=== PATIENT | male | born 1945 | race Caucasian/White ===

== ENCOUNTER 2018-06-06 11:19 | Inpatient (IN) | payer MEDICARE ==
[~2018-06-06] VITALS: Ht 167.6 cm; Wt 123.6 kg
[2018-06-06] MEDS ORDERED: ASPIRIN 81 MG CHEW TAB PO ONE (11:30)
[2018-06-06] MEDS ORDERED: FUROSEMIDE INJ 10 MG/ML 4 ML VIAL IV ONE (11:30)
[2018-06-06] MEDS ORDERED: NITROGLYCERIN 2% OINT 1 GM PKT TOP ONE (11:30)
[2018-06-06] MEDS ORDERED: FAMOTIDINE 20 MG/2 ML VIAL IV ONE (11:30)
[2018-06-06] MEDS ORDERED: ACETAMINOPHEN 325 MG TAB PO ONE (11:30)
[2018-06-06 12:10] LABS: BASOPHILS # (AUTO) 0.1 (0.0-0.1); BASOPHILS % 0.8 % (0.0-1.0); EOSINOPHILS # (AUTO) 0.3 (0.0-0.4); EOSINOPHILS % 4.4 % (0.0-6.0); HEMATOCRIT 24.6 % (38.2-49.6); HEMOGLOBIN 7.5 g/dL (14.0-18.0); LYMPHOCYTES # (AUTO) 1.1 (1.0-3.2); LYMPHOCYTES % 18.6 % (18.0-39.1); MEAN CORPUSCULAR HGB CONC 30.5 g/dL (31-35); MEAN CORPUSCULAR VOLUME 78.6 fL (81-99); MONOCYTES % 16.2 % (4.4-11.3); NEUTROPHILS # (AUTO) 3.7 (2.1-6.9); NEUTROPHILS % 59.7 % (38.7-80.0); PLATELET COUNT 178 x10e3/uL (140-360); RED BLOOD COUNT 3.13 x10e6/uL (4.3-5.7); RED CELL DISTRIBUTION WIDTH 17.4 % (11.7-14.4)
[2018-06-06 12:24] LABS: ALANINE AMINOTRANSFERASE 20 IU/L (0-55); ALBUMIN/GLOBULIN RATIO 0.8 (0.8-2.0); ALKALINE PHOSPHATASE 60 IU/L (40-150); AMYLASE 28 U/L (25-125); ANION GAP 14.9 mmol/L (8-16); BLOOD UREA NITROGEN 29 mg/dL (7-26); BUN/CREATININE RATIO 37 (6-25); CALCIUM 9.6 mg/dL (8.4-10.2); CARBON DIOXIDE 28 mmol/L (22-29); CHLORIDE 96 mmol/L (98-107); CREATINE KINASE 13 IU/L (30-200); CREATININE, SERUM 0.79 mg/dL (0.72-1.25); EST GLOMERULAR FILTRATION RATE > 60 ML/MIN (60-); GLUCOSE 114 mg/dL (74-118); LIPASE 21 U/L (8-78); MAGNESIUM 1.6 MG/DL (1.3-2.1); POTASSIUM 3.9 mmol/L (3.5-5.1); SODIUM 135 mmol/L (136-145)
[2018-06-06] MEDS ORDERED: PANTOPRAZOLE SO40 MG PO (13:04)
[2018-06-06] MEDS ORDERED: XARELTO20 MG PO (13:04)
[2018-06-06] MEDS ORDERED: IPRATROPIU0.2 MG/1 M NEB (13:04)
[2018-06-06] MEDS ORDERED: VITAMIN B-650 MG PEG (13:04)
[2018-06-06] MEDS ORDERED: FERROUS SULFAT325 MG PO (13:04)
[2018-06-06] MEDS ORDERED: ALBUTEROL0.63 MG/3 INH (13:04)
[2018-06-06] MEDS ORDERED: ACETAZOLAMIDE250 MG PO (13:04)
[2018-06-06] MEDS ORDERED: ZANTAC150 MG PO (13:04)
[2018-06-06] MEDS ORDERED: LANTUS 3ML100 UNITS/ SQ (13:04)
[2018-06-06] MEDS ORDERED: HYDRALAZINE HCL25 MG PEG (13:04)
[2018-06-06] MEDS ORDERED: METOPROLOL TART25 MG PO (13:04)
[2018-06-06] MEDS ORDERED: LASIX40 MG PO (13:04)
[2018-06-06] MEDS ORDERED: MELATONIN3 MG PO (13:04)
[2018-06-06] MEDS ORDERED: ULTRAM50 MG PO (13:04)
[2018-06-06] MEDS ORDERED: GLIMEPIRIDE2 MG PO (13:04)
[2018-06-06] MEDS ORDERED: LISINOPRIL10 MG PO (13:04)
[2018-06-06] MEDS ORDERED: LIPITOR20 MG PEG (13:04)
[2018-06-06] MEDS ORDERED: FOLIC ACID1 MG PO (13:04)
[2018-06-06] MEDS ORDERED: NOVOLOG100 UNIT/1 SQ (13:04)
[2018-06-06] MEDS ORDERED: LOW DOSE ASPIRI81 MG PO (13:04)
[2018-06-06] MEDS ORDERED: SPIRONOLACTONE25 MG PO (13:04)
[2018-06-06] MEDS ORDERED: SODIUM CHLORIDE FLUSH 10 ML SYR INJ PRN (14:00)
[2018-06-06] MEDS ORDERED: ONDANSETRON HCL 4 MG ORAL DISINTEGRATING TAB PO PRN (14:00)
[2018-06-06] MEDS ORDERED: MORPHINE SULFATE 2 MG/ML SYR IV PRN (14:00)
[2018-06-06] MEDS ORDERED: ENALAPRILAT IV INJ 1.25 MG/ML VIAL IV PRN (14:00)
[2018-06-06] MEDS ORDERED: ACETAMINOPHEN 325 MG TAB PO STA (14:10)
[2018-06-06] MEDS ORDERED: FUROSEMIDE INJ 10 MG/ML 2 ML VIAL IV ONE (14:15)
[2018-06-06] MEDS ORDERED: SODIUM CHLORIDE 0.9% 250ML 250 ML IV ONE (14:15)
[2018-06-06] MEDS ORDERED: DIPHENHYDRAMINE HCL INJ 50 MG/ML VIAL IV ONE (14:15)
[2018-06-06] MEDS ORDERED: FUROSEMIDE INJ 10 MG/ML 2 ML VIAL IV NR (14:30)
[2018-06-06] MEDS ORDERED: DIPHENHYDRAMINE HCL INJ 50 MG/ML VIAL IV NR (14:30)
[2018-06-06] MEDS ORDERED: ONDANSETRON HCL INJ 2 MG/ML VIAL IV STA (15:53)
[2018-06-06] MEDS ORDERED: PROMETHAZINE 12.5MG/ NACL 0.9% 12.5 MG/50 ML BAG IV PRN (16:00)
[2018-06-06] MEDS ORDERED: FAMOTIDINE 20 MG TAB PO SCH (16:30)
[2018-06-06] MEDS ORDERED: LORAZEPAM INJ 2 MG/ML VIAL IV ONE (16:30)
[2018-06-06] MEDS: MORPHINE SULFATE INJ 4 MG/ML INJ IV PRN (16:45)
[2018-06-06] MEDS ORDERED: LISINOPRIL 2.5 MG TAB PO SCH (17:00)
[2018-06-06 17:11] LABS: BILIRUBIN,URINE NEGATIVE (NEGATIVE); CLARITY,URINE SL CLOUDY (CLEAR); COLOR,URINE YELLOW (YELLOW); KETONES,URINE NEGATIVE (NEGATIVE); LEUKOCYTE ESTERASE ,URINE TRACE (NEGATIVE); NITRITE,URINE NEGATIVE (NEGATIVE); PROTEIN,URINE DIPSTICK NEGATIVE (NEGATIVE); URINE UROBILINOGEN 0.2 mg/dL (0.2 - 1)
[2018-06-06] MEDS: CARVEDILOL 3.125 MG TAB PO SCH (17:17)
[2018-06-06] MEDS: ENOXAPARIN SOD INJ 40 MG/0.4 ML SYR SC SCH (17:17)
[2018-06-06] MEDS: FUROSEMIDE INJ 10 MG/ML 4 ML VIAL IV SCH (17:18)
[2018-06-06 17:19] LABS: BACTERIA,URINE MANY /HPF
[2018-06-06] MEDS ORDERED: ALBUTEROL SULF 0.083% NEB SOLN 3 ML NEB INH PRN (17:45)
[2018-06-06] MEDS ORDERED: IPRATROPIUM BROMIDE 0.02% 2.5 ML NEB NEB PRN (17:45)
[2018-06-06 18:01] LABS: % IRON SATURATION 9 % (15-50); IRON 28 ug/dL (65-175); TOTAL IRON BINDING CAPACITY 295 ug/dL (261-478); TRANSFERRIN 211 mg/dL (174-364)
--- NOTE | 2018-06-06 18:57 | Diagnostic Imaging Report ---
EXAMINATION: CHEST SINGLE (PORTABLE) INDICATION: \S\Chest pain, look for CHF, enlarge Mediastinum COMPARISON: Chest pain. FINDINGS: AP view TUBES and LINES: None. LUNGS: Lungs are well inflated. Left lower lobe atelectasis and/or consolidation. There is perihilar interstitial opacities, consistent with interstitial edema. PLEURA: No pleural effusion or pneumothorax. HEART AND MEDIASTINUM: Cardiac size is mildly enlarged. BONES AND SOFT TISSUES: Degenerative changes in bilateral AC joints. No acute osseous lesion. Soft tissues are unremarkable. UPPER ABDOMEN: No free air under the diaphragm. IMPRESSION: 1. Suboptimal exam with breathing motion artifact. 2. Mild cardiomegaly with interstitial edema. 3. Left basilar atelectasis and/or consolidation. Signed by: Dr. Mekhi Davis M.D. on 06/06/2018 6:53 PM
[2018-06-06] MEDS ORDERED: NOVOLOG100 UNIT/1 SC (19:37)
--- NOTE | 2018-06-06 20:16 | History and Physical ---
This is a 72-year-old male patient of [facility], presented to the emergency room with a complaint of shortness of breath and chest pain. HISTORY OF PRESENT ILLNESS: Mr. Hany Conway is 72-year-old morbidly obese male patient with multiple underlying comorbidity and severe diseases with coronary artery disease, congestive heart failure, atrial fibrillation, COPD, morbid obesity and obstructive sleep apnea, severe osteoarthritis and profound debilitation and bedridden as he was at the [facility] with multiple problems. The patient was having shortness of breath and also having chest pain and generalized pain. So, the patient was sent to the emergency room. PAST MEDICAL HISTORY: Hypertension, hyperlipidemia, diabetes mellitus with vascular disease, coronary artery disease, systolic and diastolic CHF, atrial fibrillation, and cor pulmonale. MEDICATIONS: See from the list. ALLERGIES: NO KNOWN DRUG ALLERGIES. SOCIAL HISTORY: Denies using alcohol. Denies smoking. FAMILY HISTORY: Diabetes mellitus, hypertension. REVIEW OF SYSTEMS GENERAL: The patient has generalized pain, body ache, itching, shortness of breath, and chest pain. SKIN: He has itching and ulceration on bottom. PHYSICAL EXAMINATION GENERAL: He is an elderly, moderately obese male patient, lying in the bed, not in any acute distress. VITALS: Temperature 98, pulse rate 92, respiratory rate 20, blood pressure 120/70. HEENT: Normocephalic. NECK: JVD present. LUNG: Bilateral equal air entry. No rales, no rhonchi. HEART: S1, S2. Irregularly irregular. Systolic murmur present. ABDOMEN: Soft. Bowel sounds present. SKIN: The patient has Tinea cruris and stage 2 sacral decubitus ulcers. EXTREMITIES: Edema present. Skin pallor present. LABORATORY EXAMINATION: The patient's hemoglobin is 7.5. Chest x-ray showing vascular congestion. EKG showing atrial fibrillation. ADMITTING IMPRESSION AND DIAGNOSES 1. Decompensated congestive heart failure. 2. Dyspnea. 3. Chronic obstructive pulmonary disease with exacerbation. 4. Moderately severe anemia. 5. Uihmh-wh-wpgsrpc anemia with possible blood loss. 6. Diabetes mellitus. 7. Sacral decubitus ulcer. 8. Tinea cruris. PLAN: The patient will be admitted with the above diagnosis. The patient will be getting blood transfusion, less diuretic and we will obtain cardiology and GI consultation. We will do serial EKG and cardiac exams. Job#: [id number] GE
[2018-06-06 20:21] LABS: CREATINE KINASE MB 0.2 ng/mL (0-5.0)
[2018-06-06 20:39] VITALS: BP 134/58
[2018-06-06] MEDS ORDERED: INSULIN LISPRO 100 UNIT/1 ML 3ML VIAL SQ SCH (21:00)
[2018-06-06] MEDS: INSULIN LISPRO 100 UNIT/1 ML 3ML VIAL SQ SCH (21:00)
[2018-06-06] MEDS ORDERED: MELATONIN 3 MG TAB PO SCH (21:00)
[2018-06-06] MEDS: INSULIN DETEMIR 100 UNIT/ML PEN SQ SCH (22:30)
[2018-06-06] MEDS: ATORVASTATIN 20 MG TAB PEG SCH (22:43)
[2018-06-06] MEDS: HYDRALAZINE HCL 25 MG TAB PEG SCH (22:43)
[2018-06-06 23:06] VITALS: BP 133/58
[2018-06-07] VITALS (24 sets, daily range): BP systolic 79–141; BP diastolic 37–72
[2018-06-07] MEDS ORDERED: SODIUM CHLORIDE 0.9% 250ML 250 ML ONE (00:15)
[2018-06-07] MEDS: ACETAMINOPHEN 325 MG TAB PO PRN (01:00)
[2018-06-07] MEDS: DIPHENHYDRAMINE HCL 25 MG CAP PO PRN ×3 (01:15→16:51)
[2018-06-07] MEDS: TRAMADOL HCL 50 MG TAB PO PRN ×3 (01:15→16:51)
[2018-06-07] MEDS: MORPHINE SULFATE INJ 4 MG/ML INJ IV PRN ×2 (03:00→12:36)
[2018-06-07] MEDS: INSULIN LISPRO 100 UNIT/1 ML 3ML VIAL SQ SCH ×4 (07:30→21:00)
[2018-06-07] MEDS: FAMOTIDINE 20 MG TAB PO SCH ×2 (08:26→16:49)
[2018-06-07] MEDS: FUROSEMIDE INJ 10 MG/ML 4 ML VIAL IV SCH ×2 (08:26→22:36)
[2018-06-07] MEDS: GLIMEPIRIDE 2 MG TAB PO SCH ×2 (08:27→16:49)
[2018-06-07] MEDS: HYDRALAZINE HCL 25 MG TAB PEG SCH ×3 (08:27→20:57)
[2018-06-07] MEDS: CARVEDILOL 3.125 MG TAB PO SCH ×2 (08:27→16:50)
[2018-06-07] MEDS: SPIRONOLACTONE 25 MG TAB PO SCH ×2 (08:27→16:49)
[2018-06-07] MEDS: PYRIDOXINE HCL 50 MG TAB PEG SCH (08:27)
[2018-06-07] MEDS: FERROUS SULFATE 325 MG TAB PO SCH ×2 (08:28→16:50)
[2018-06-07] MEDS: PANTOPRAZOLE SOD 40 MG TABEC PO SCH (08:28)
[2018-06-07] MEDS: FOLIC ACID 1 MG TAB PO SCH (08:28)
[2018-06-07] MEDS: METOPROLOL TARTRATE 25 MG TAB PO SCH ×2 (08:28→16:50)
[2018-06-07] MEDS ORDERED: SPIRONOLACTONE 25 MG TAB PO SCH (09:00)
[2018-06-07] MEDS ORDERED: ASPIRIN 81 MG ENTERIC COATED PO SCH (09:00)
[2018-06-07] MEDS ORDERED: FUROSEMIDE 40 MG TAB PO SCH (09:00)
[2018-06-07] MEDS ORDERED: RIVAROXABAN 20 MG TABLET PO SCH (09:00)
[2018-06-07] MEDS ORDERED: LISINOPRIL 10 MG TAB PO SCH (09:00)
[2018-06-07 09:32] LABS: BASOPHILS % 0.6 % (0.0-1.0); EOSINOPHILS # (AUTO) 0.4 (0.0-0.4); HEMATOCRIT 28.6 % (38.2-49.6); HEMOGLOBIN 8.8 g/dL (14.0-18.0); LYMPHOCYTES # (AUTO) 0.9 (1.0-3.2); LYMPHOCYTES % 14.4 % (18.0-39.1); MEAN CORPUSCULAR HEMOGLOBIN 24.7 pg (28-32); MEAN CORPUSCULAR HGB CONC 30.8 g/dL (31-35); MEAN CORPUSCULAR VOLUME 80.3 fL (81-99); MONOCYTES # (AUTO) 1.1 (0.2-0.8); MONOCYTES % 17.2 % (4.4-11.3); NEUTROPHILS # (AUTO) 3.7 (2.1-6.9); NEUTROPHILS % 60.5 % (38.7-80.0); PLATELET COUNT 170 x10e3/uL (140-360); RED BLOOD COUNT 3.56 x10e6/uL (4.3-5.7); RED CELL DISTRIBUTION WIDTH 16.7 % (11.7-14.4)
--- NOTE | 2018-06-07 09:47 | Consultation ---
DATE OF CONSULTATION: June 06, 2018 REASON FOR CONSULTATION: CHF. CONSULTING PHYSICIAN: Dr. Lynne Covington. HISTORY OF PRESENT ILLNESS: This is a morbidly obese 73-year-old male that presented with shortness of breath. He is a resident [facility] with multiple medical problems that was found with difficulty breathing with generalized weakness and he was brought to the emergency room for evaluation. He is awake, alert and oriented times 1. He is able to follow simple commands. He denied any chest pain, any palpitation, any diaphoresis or headache. Troponin times 2 was negative. EKG showed AFib, irregularly irregular. BNP 231. Chest x-ray showed mild cardiomegaly with interstitial edema. PAST MEDICAL HISTORY: Obesity, CAD, CHF, obstructive sleep apnea, osteoarthritis, bedridden, hypertension, hyperlipidemia, diabetes, AFib on Xarelto, COPD, sacral ulcer. PAST SURGICAL HISTORY: Unknown. FAMILY HISTORY: Noncontributory. SOCIAL HISTORY: He is a resident of a [facility]. MEDICATIONS: See med list. ALLERGIES: He is not allergic to any medication. REVIEW OF SYSTEMS: Negative except as mentioned above. He is positive for shortness of breath and anemia. PHYSICAL EXAMINATION VITAL SIGNS: Temperature 99, heart rate 100, blood pressure 120/53, respirations 22, oxygen saturation 97% on 3 L nasal cannula. GENERAL: He is awake and alert times 2 and morbidly obese. HEENT: Mucous membranes moist. NECK: Supple. LUNGS: Bilateral decreased breath sounds. CARDIOVASCULAR: Irregularly irregular. ABDOMEN: Soft. NEUROLOGICAL: He is not able to move any extremities. Bilateral lower extremity with 1 to 2+ edema. LABS: Sodium 135, potassium 3.9, chloride 96, CO2 28, BUN 29, creatinine 0.79, glucose 114. White blood cells 6.13, hemoglobin 7.5, hematocrit 24.6, platelets 178,000. IMPRESSION 1. Congestive heart failure, type unknown. 2. Anemia. 3. Atrial fibrillation. 4. Obesity. 5. Shortness of breath. 6. Chronic obstructive pulmonary disease exacerbation. 7. Diabetes. ASSESSMENT AND PLAN: He is planning on echocardiogram to assess the LV and the valve function. His BNP is 231. We will go ahead and continue diuretic, beta charles and MATT inhibitor. Due to the bilateral lower extremity edema, will go ahead and get Doppler to rule out any DVT. His hemoglobin was 7.5 and he received 2 units of blood. Will go ahead and hold his Xarelto for now. Further cardiac workup pending clinical course. Thank you for this consultation. Dictated by: Faby Hamilton NP. Job#: [id number] DONNA
[2018-06-07 09:52] LABS: ANION GAP 14.5 mmol/L (8-16); BLOOD UREA NITROGEN 33 mg/dL (7-26); BUN/CREATININE RATIO 35 (6-25); CALCIUM 9.3 mg/dL (8.4-10.2); CARBON DIOXIDE 30 mmol/L (22-29); CHLORIDE 97 mmol/L (98-107); CREATINE KINASE 10 IU/L (30-200); CREATININE, SERUM 0.95 mg/dL (0.72-1.25); EST GLOMERULAR FILTRATION RATE > 60 ML/MIN (60-); GLUCOSE 159 mg/dL (74-118); POTASSIUM 4.5 mmol/L (3.5-5.1); SODIUM 137 mmol/L (136-145)
[2018-06-07] MEDS ORDERED: SODIUM CHLORIDE 0.9% 250ML 250 ML IV ONE (10:15)
[2018-06-07] MEDS ORDERED: CEFTRIAXONE SOD 1 GM VIAL IV SCH (10:15)
[2018-06-07] MEDS: NYSTATIN 15 GM POWDER UD BTL TOP SCH ×2 (12:00→16:50)
[2018-06-07] MEDS: ONDANSETRON HCL INJ 2 MG/ML VIAL IV PRN (12:00)
[2018-06-07] MEDS ORDERED: FUROSEMIDE INJ 10 MG/ML 4 ML VIAL IV ONE (13:00)
[2018-06-07] MEDS ORDERED: SUCCINYLCHOLINE CHLORIDE 20 MG/ML 10ML VIAL ONE (14:50)
[2018-06-07] MEDS ORDERED: SODIUM BICARBONATE 8.4% 50 ML VIAL ONE (14:50)
[2018-06-07] MEDS ORDERED: EPINEPHRINE HCL SYRINGE ONE ×2 (14:50→18:48)
[2018-06-07] MEDS: ENOXAPARIN SOD INJ 40 MG/0.4 ML SYR SC SCH (16:50)
[2018-06-07] MEDS ORDERED: SODIUM CHLORIDE 0.9% 1000ML 1,000 ML ONE ×2 (18:35→19:39)
[2018-06-07] MEDS ORDERED: NOREPINEPHRINE 8 MG/D5W 250 ML 250 ML ONE (18:49)
[2018-06-07] MEDS ORDERED: NOREPINEPHRINE INJ 4MG/4ML 8 MG in DEXTROSE 5% 250ML 250 ML IV SCH (19:00)
--- NOTE | 2018-06-07 19:20 | Diagnostic Imaging Report ---
EXAMINATION: CHEST SINGLE (PORTABLE) INDICATION: \S\Intubation COMPARISON: Chest x-ray 06/06/2018 FINDINGS: AP view TUBES and LINES: Tip of the endotracheal tube is 3.9 cm above the jayleen. LUNGS: Lungs are well inflated. There are bibasilar atelectasis. There is perihilar interstitial opacities, consistent with interstitial edema. PLEURA: No pleural effusion or pneumothorax. HEART AND MEDIASTINUM: Cardiac size is mildly enlarged. BONES AND SOFT TISSUES: No acute osseous lesion. Soft tissues are unremarkable. UPPER ABDOMEN: No free air under the diaphragm. IMPRESSION: 1. New endotracheal tube with tip 3.9 cm above the jayleen. 2. Unchanged interstitial edema. Signed by: Dr. Mekhi Davis M.D. on 06/07/2018 7:17 PM
[2018-06-07 19:35] LABS: ABG PH 7.23 (7.31-7.41)
[2018-06-07 19:37] LABS: ABG HCO3 33 mmol/L (23-28); ABG PCO2 78 mmHg (41-51); ABG PO2 543 mmHg (80-105)
[2018-06-07] MEDS ORDERED: VANCOMYCIN HCL 1.5 GM in SODIUM CHLORIDE 0.9% 250ML 300 ML IV ONE (19:45)
[2018-06-07] MEDS: SODIUM CHLORIDE 0.9% 1000ML 1,000 ML IV SCH (20:00)
--- NOTE | 2018-06-07 20:04 | Diagnostic Imaging Report ---
EXAMINATION: CHEST SINGLE (PORTABLE) INDICATION: \S\Line placement COMPARISON: Chest x-ray 06/06/2018 FINDINGS: AP view TUBES and LINES: Endotracheal tube tip is 4.5 cm above the jayleen. Left IJ central line with tip in mid SVC. LUNGS: Lungs are well inflated. There are bibasilar atelectasis. There is mild prominence of the central pulmonary vasculature, consistent with pulmonary venous congestion. PLEURA: No pleural effusion or pneumothorax. HEART AND MEDIASTINUM: Cardiac size is mildly enlarged. BONES AND SOFT TISSUES: No acute osseous lesion. Soft tissues are unremarkable. UPPER ABDOMEN: No free air under the diaphragm. IMPRESSION: Endotracheal tube tip is 4.5 cm above the jayleen. Left IJ central line with tip in mid SVC. Signed by: Dr. Mekhi Davis M.D. on 06/07/2018 8:01 PM
[2018-06-07 20:13] LABS: BASOPHILS % 0.2 % (0.0-1.0); EOSINOPHILS % 0.3 % (0.0-6.0); HEMATOCRIT 33.7 % (38.2-49.6); HEMOGLOBIN 10.1 g/dL (14.0-18.0); LYMPHOCYTES # (AUTO) 0.4 (1.0-3.2); LYMPHOCYTES % 2.6 % (18.0-39.1); MEAN CORPUSCULAR HEMOGLOBIN 24.8 pg (28-32); MEAN CORPUSCULAR VOLUME 82.8 fL (81-99); MONOCYTES # (AUTO) 0.7 (0.2-0.8); MONOCYTES % 4.8 % (4.4-11.3); NEUTROPHILS # (AUTO) 12.3 (2.1-6.9); NEUTROPHILS % 91.4 % (38.7-80.0); PLATELET COUNT 220 x10e3/uL (140-360); RED BLOOD COUNT 4.07 x10e6/uL (4.3-5.7)
[2018-06-07] MEDS ORDERED: SODIUM CHLORIDE 0.9% 1000ML 1,000 ML IV PRN (20:15)
[2018-06-07] MEDS: MIDAZOLAM HCL 25 MG in SODIUM CHLORIDE 0.9% 50ML 45 ML IV PRN (20:21)
[2018-06-07 20:33] LABS: ALBUMIN 2.8 g/dL (3.5-5.0); ALBUMIN/GLOBULIN RATIO 0.7 (0.8-2.0); ANION GAP 21.4 mmol/L (8-16); CALCIUM 9.3 mg/dL (8.4-10.2); CREATININE, SERUM 1.29 mg/dL (0.72-1.25); INR 2.58; MAGNESIUM 1.4 MG/DL (1.3-2.1); PHOSPHORUS 7.1 MG/DL (2.3-4.7); POTASSIUM 5.4 mmol/L (3.5-5.1); PROTHROMBIN TIME 29.6 seconds (11.9-14.5)
[2018-06-07 20:53] LABS: CREATINE KINASE MB 0.3 ng/mL (0-5.0); THYROID STIMULATING HORMONE 0.012 uIU/mL (0.350-4.940)
[2018-06-07] MEDS ORDERED: NOREPINEPHRINE INJ 4MG/4ML 8 MG in DEXTROSE 5% 250ML 250 ML IV PRN (21:00)
[2018-06-07] MEDS: ATORVASTATIN 20 MG TAB PEG SCH (21:00)
[2018-06-07] MEDS: INSULIN DETEMIR 100 UNIT/ML PEN SQ SCH (21:00)
--- NOTE | 2018-06-07 21:31 | Consultation ---
DATE OF CONSULTATION: June 07, 2018 PULMONARY MEDICINE CONSULT REFERRING PHYSICIAN: Dr. Robert Covington. REASON FOR REFERRAL: Respiratory failure. HISTORY OF PRESENT ILLNESS: Mr. Conway is a pleasant 72-year-old gentleman with respiratory failure. The patient was admitted on June 06, 2018. The patient was alert and oriented times 1, unable to follow simple commands. However, he was thought to be confused beyond his baseline. EKG showed atrial fibrillation, but he was not felt to have critical bradycardia nor tachycardia per the nursing report. BNP was 231, BNP later seen 294. Chest x-ray showed mild overload type pattern, elevated left diaphragm. I discussed with the nurse and nursing did not notice any respiratory distress all day. However, there was a call later on from telemetry. The patient was asystolic. The patient was recently assessed within an hour to not have any respiratory issues. At this point, the patient had cardiac arrest. He had 7 minutes until return of spontaneous circulation. He had 2 units of epinephrine given. He was given succinylcholine 100 mg for intubation. He was transferred to the ICU. Blood pressure is on the lower side. Earlier today, he had received some blood transfusions reportedly and some Lasix. PAST MEDICAL HISTORY: Obesity, coronary artery disease, CHF diastolic, GLADYS osteoarthritis, bedridden, hypertension, hyperlipidemia, diabetes, atrial fibrillation on Xarelto, COPD, sacral ulcer. FAMILY HISTORY: Noncontributory. SOCIAL HISTORY: [facility] resident. Unknown if he smoke, drank or did drugs. Cannot get at this time. REVIEW OF SYSTEMS: Cannot get as he is intubated. MEDICATIONS: Please see medication record for list. ALLERGIES: NO KNOWN DRUG ALLERGIES. OBJECTIVE VITAL SIGNS: The patient is not stable. Vital signs include hypotension. The heart rate is 90 to 100. GENERAL: He is still under effects of paralysis. HEENT: Normocephalic, atraumatic. NECK: Supple. Throat midline. LUNGS: Bilateral air entry is limited, decreased to auscultation. CARDIAC: No loud murmurs heard. ABDOMEN: Obese. EXTREMITIES: He has edema that is mostly receded with some skin wrinkling left behind. Lymphedema changes are present. LABS: BUN 33, creatinine 0.95 in the morning. White count 6, hematocrit 29. BNP 294. Chest x-ray is pending, still not loaded. Earlier x-ray was noted. IMPRESSION 1. Acute respiratory failure. 2. Hypotension/shock. 3. Encephalopathy, not otherwise specified, but currently on paralysis. Jiaox-fl-dvnwqsg component likely. 4. Abnormal chest x-ray, treat as pneumonia. 5. Abnormal chest x-ray, not highly suspecting congestive heart failure given his low B-type natriuretic peptide as well as the fact that his skin appears wrinkled. 6. Atrial fibrillation, unclear if this was causative to his arrest. 7. Suspected pulmonary hypertension. 8. Possible chronic obstructive pulmonary disease. 9. Obstructive sleep apnea. 10. Hypertension. 11. Hyperlipidemia. 12. Diabetes. PLAN: Continue to follow up closely. The patient will have diuretics temporarily held. Continue IV fluid. When he is more stable on blood pressure, we will take him for CT scan of the head and lungs. Hold off on blood pressure medicines until he is stable. Empiric antibiotics to be given. Pancultures. Greater than 30 minutes in direct care today, not including procedures. Thank you very much, Dr. Lynne Covington, for allowing me a chance to participate in care of Mr. Conway. Please call for questions. Job#: [id number]
--- NOTE | 2018-06-07 22:05 | Operative Report ---
DATE OF PROCEDURE: June 07, 2018 PROCEDURE: Central venous catheter insertion. INDICATION: Shock. CONSENT: Emergency. DETAILS OF PROCEDURE: After sterile prep and drape, the patient had ultrasound localization of the left internal jugular vessel. The patient at this point had cannulization of the left IJ in the anterior aspect with triple lumen central venous line. It was sutured in at 16.5 cm. Thereafter, the procedure was terminated after good flush back was obtained and after dressing was placed. FINDINGS: Successful cannulation of left internal jugular vessel with triple lumen catheter. Ultrasound guidance used. COMPLICATIONS: None. ESTIMATED BLOOD LOSS: 3 mL. Job#: [id number]
[2018-06-07] MEDS: DOXYCYCLINE 100MG/NS 100ML 100 ML IV SCH (22:36)
[2018-06-08] VITALS (81 sets, daily range): BP systolic 80–185; BP diastolic 30–74
[2018-06-08] MEDS: PIPER-TAZ 3.375 GM 50 ML IV SCH ×4 (00:50→16:38)
[2018-06-08] MEDS: MIDAZOLAM HCL 25 MG in SODIUM CHLORIDE 0.9% 50ML 45 ML IV PRN (01:56)
[2018-06-08 04:41] LABS: BASOPHILS % 0.1 % (0.0-1.0); HEMOGLOBIN 9.4 g/dL (14.0-18.0); LYMPHOCYTES # (AUTO) 0.6 (1.0-3.2); LYMPHOCYTES % 3.9 % (18.0-39.1); MEAN CORPUSCULAR HEMOGLOBIN 24.8 pg (28-32); MEAN CORPUSCULAR HGB CONC 31.3 g/dL (31-35); MEAN CORPUSCULAR VOLUME 79.2 fL (81-99); MONOCYTES # (AUTO) 0.8 (0.2-0.8); MONOCYTES % 4.9 % (4.4-11.3); NEUTROPHILS # (AUTO) 14.4 (2.1-6.9); NEUTROPHILS % 90.5 % (38.7-80.0); PLATELET COUNT 199 x10e3/uL (140-360); RED BLOOD COUNT 3.79 x10e6/uL (4.3-5.7); RED CELL DISTRIBUTION WIDTH 17.1 % (11.7-14.4)
[2018-06-08 05:06] LABS: ALBUMIN 2.6 g/dL (3.5-5.0); ALBUMIN/GLOBULIN RATIO 0.8 (0.8-2.0); ANION GAP 18.6 mmol/L (8-16); CALCIUM 9.1 mg/dL (8.4-10.2); CREATININE, SERUM 1.53 mg/dL (0.72-1.25); POTASSIUM 4.6 mmol/L (3.5-5.1)
--- NOTE | 2018-06-08 06:38 | Diagnostic Imaging Report ---
EXAMINATION: CHEST SINGLE (PORTABLE) INDICATION: CHF COMPARISON: 06/07/2018 FINDINGS: AP view TUBES and LINES: Endotracheal tube tip is 2.5 cm above the jayleen. Left IJ central line with tip in proximal SVC. LUNGS: Lungs are well inflated. There are bibasilar atelectasis. There is mild prominence of the central pulmonary vasculature, consistent with pulmonary venous congestion. PLEURA: No pleural effusion or pneumothorax. HEART AND MEDIASTINUM: Cardiac size is mildly enlarged. BONES AND SOFT TISSUES: No acute osseous lesion. Soft tissues are unremarkable. UPPER ABDOMEN: No free air under the diaphragm. IMPRESSION: Tubes and lines are stable in good position. Mild central vascular congestion. Signed by: Dr. Adalberto Simental M.D. on 06/08/2018 6:35 AM
[2018-06-08] MEDS: INSULIN LISPRO 100 UNIT/1 ML 3ML VIAL SQ SCH ×4 (07:30→21:00)
[2018-06-08 08:06] LABS: CLARITY,URINE SL CLOUDY (CLEAR); COLOR,URINE YELLOW (YELLOW); LEUKOCYTE ESTERASE ,URINE 1+ (NEGATIVE)
[2018-06-08 08:07] LABS: BILIRUBIN,URINE NEGATIVE (NEGATIVE); KETONES,URINE NEGATIVE (NEGATIVE); NITRITE,URINE NEGATIVE (NEGATIVE); PROTEIN,URINE DIPSTICK NEGATIVE (NEGATIVE); URINE UROBILINOGEN 0.2 mg/dL (0.2 - 1)
[2018-06-08 08:23] LABS: BACTERIA,URINE RARE /HPF; EPITHELIAL CELLS,URINE RARE /LPF
[2018-06-08 08:25] LABS: AMORPHOUS SEDIMENT,URINE RARE (FEW)
[2018-06-08] MEDS: FOLIC ACID 1 MG TAB PO SCH (09:00)
[2018-06-08] MEDS: GLIMEPIRIDE 2 MG TAB PO SCH ×2 (09:00→15:20)
[2018-06-08] MEDS: CARVEDILOL 3.125 MG TAB PO SCH ×2 (09:00→15:21)
[2018-06-08] MEDS: HYDRALAZINE HCL 25 MG TAB PEG SCH ×3 (09:00→21:00)
[2018-06-08] MEDS: METOPROLOL TARTRATE 25 MG TAB PO SCH ×2 (09:00→15:21)
[2018-06-08] MEDS: PANTOPRAZOLE SOD 40 MG TABEC PO SCH (09:00)
[2018-06-08] MEDS: FERROUS SULFATE 325 MG TAB PO SCH ×2 (09:00→15:21)
[2018-06-08] MEDS: PYRIDOXINE HCL 50 MG TAB PEG SCH (09:00)
[2018-06-08 09:11] LABS: ABG PCO2 44 mmHg (41-51); ABG PH 7.45 (7.31-7.41); ABG PO2 198 mmHg (80-105)
[2018-06-08 09:12] LABS: ABG HCO3 31 mmol/L (23-28)
[2018-06-08] MEDS: DOXYCYCLINE 100MG/NS 100ML 100 ML IV SCH ×2 (09:21→19:45)
[2018-06-08] MEDS: FUROSEMIDE INJ 10 MG/ML 4 ML VIAL IV SCH ×3 (09:21→22:17)
[2018-06-08] MEDS: FAMOTIDINE 20 MG/2 ML VIAL IV SCH ×2 (09:21→22:17)
--- NOTE | 2018-06-08 09:24 | Diagnostic Imaging Report ---
PROCEDURE:X-RAY ABDOMEN - KUB COMPARISON:None. INDICATIONS:OGT PLACEMENT FINDINGS: Endotracheal tube tip is difficult to visualize, though projects inferior to the left hemidiaphragm, over the expected region of the gastric fundus. Bowel gas pattern is nonobstructive. Lung bases are grossly clear. Regional skeletal structures are intact. CONCLUSION: Enteric tube tip projects over the expected region of the gastric fundus. Dictated by: Alexsander Cheung M.D. on 06/08/2018 at 9:32 Electronically approved by: Alexsander Cheung M.D. on 06/08/2018 at 9:32
[2018-06-08] MEDS: SODIUM CHLORIDE 0.9% 1000ML 1,000 ML IV SCH (10:02)
--- NOTE | 2018-06-08 10:09 | Progress Note ---
DATE: June 08, 2018 CRITICAL CARE CONSULTATION Patient needed to be intubated and started with ventilation after he coded. The patient was originally admitted due to chest pains. He has a history of COPD, CHF, hypertension, hyperlipidemia, GERD, atrial fibrillation, coronary artery disease, type 2 diabetes mellitus, obstructive sleep apnea. He was recently unable to walk. The patient is obese. PHYSICAL EXAMINATION VITALS: He has been sedated with Versed. The pulse is 92, oxygen saturation 99, blood pressure 125/44. He is on assist control of 24, PEEP of 5, FIO2 of 60%, tidal volume 500. HEENT: There is oral intubation. NECK: Short and thick neck. LUNGS: There are rales in the bases. HEART: No murmurs. ABDOMEN: Prominent. EXTREMITIES: Pedal edema. LABS: WBC is 15.96, hemoglobin 9.4. BUN 52, creatinine 1.53, sugar 191, albumin 2.6, total bilirubin 2.5, SGOT 713, SGPT 639. Chest x-ray disclosed no changes in comparison with a chest x-ray done yesterday or after the intubation. The patient's ABG last night with pH 7.3, pCO2 60, pO2 56. IMPRESSION 1. Stable after arresting. 2. Acute hypercapnic and hypoxemic respiratory failure. 3. Chronic obstructive pulmonary disease. 4. Chest pains. 5. Coronary artery disease. 6. Congestive heart failure. 7. Hypertension. 8. Hyperlipidemia. 9. Gastroesophageal reflux disease. 10. Atrial fibrillation. 11. Obesity. 12. Obstructive sleep apnea. 13. Type 2 diabetes mellitus. RECOMMENDATIONS: Continue with the same ventilatory settings and to perform ABGs. I agree with Zosyn 3.375 q.6 h. IV. He is getting sliding scale of insulin. I would recommend Pepcid 20 mg q.12 h. IV. He is on Vibramycin 100 mg daily, Lasix 40 mg IV t.i.d. I would recommend NG tube placement. Stop the Lovenox due to the renal failure. Also, he has compatible with hepatic-like changes with increasing bilirubin and increasing liver enzymes. Would recommend SCDs on both lower extremities. Pepcid 20 mg q.12 h. IV for now. For tomorrow, ABG, chest x-ray, CBC, Chem-7, magnesium, and liver profile. Job#: [id number] RI
[2018-06-08] MEDS ORDERED: METOPROLOL TARTRATE INJ 1 MG/ML VIAL ONE (11:26)
[2018-06-08] MEDS ORDERED: METOPROLOL TARTRATE INJ 1 MG/ML VIAL IV ONE (11:30)
[2018-06-08] MEDS ORDERED: ACETAMINOPHEN 1000 MG/100 ML IV PRN (11:45)
[2018-06-08] MEDS: BALSAM PERU/CASTOR OIL 60 GM OINT...G. TP SCH (15:19)
[2018-06-08] MEDS: NYSTATIN 15 GM POWDER UD BTL TOP SCH (15:19)
[2018-06-08] MEDS ORDERED: IOPAMIDOL 370 MG/ML 200 ML INFUS..BTL INJ ONE (18:22)
[2018-06-08] MEDS ORDERED: SODIUM CHLORIDE 0.9% 50ML 50 ML ONE (18:22)
[2018-06-08] MEDS: FENTANYL CITRATE INJ 2,000 MCG in SODIUM CHLORIDE 0.9% 250ML 210 ML IV PRN (19:00)
--- NOTE | 2018-06-08 20:16 | Diagnostic Imaging Report ---
EXAM: CT Abdomen and Pelvis WITH contrast INDICATION: \S\r/o ischemia, necrosis CHF. Exacerbation. COMPARISON: None. TECHNIQUE: Abdomen and pelvis were scanned utilizing a multidetector helical scanner from the lung base to the pubic symphysis after administration of IV contrast. Coronal and sagittal reformations were obtained. Routine protocol was performed. Scan was performed when during portal venous phase. IV CONTRAST: 100 mL of Isovue 370 ORAL CONTRAST: Water COMPLICATIONS: None RADIATION DOSE: Total DLP: 1382.01 mGy*cm Estimated effective dose: (DLP x 0.015 x size factor) mSv CTDIvol has been reviewed. It is below the limits set by the Radiation Protocol Committee (RPC). FINDINGS: LINES and TUBES: NG tube is in the stomach. Webb catheter in place. LOWER THORAX: Right lower lobe and left lower lobe atelectasis and/or consolidation. Trace tiny bilateral pleural effusions. Moderate severe coronary artery calcifications of the right coronary and left circumflex artery. HEPATOBILIARY: Liver margins is mildly lobulated. No focal hepatic lesions. No biliary ductal dilation. GALLBLADDER: No radio-opaque stones or sludge. No wall thickening. SPLEEN: No splenomegaly. PANCREAS: No focal masses or ductal dilatation. Numerous calcifications throughout the pancreas consistent with chronic pancreatitis. ADRENALS: No adrenal nodules KIDNEYS/URETERS: Kidneys enhance symmetrically. No hydronephrosis. 1.0 cm cyst in the superior pole of the right kidney. No stones. GI TRACT: No abnormal distention, wall thickening, or evidence of bowel obstruction. There are diverticula within the colon without evidence of diverticulitis. Appendix is normal. PELVIC ORGANS/BLADDER: Webb catheter in place with air in the bladder. LYMPH NODES: No lymphadenopathy. VESSELS: There is severe atherosclerotic disease in the aorta and major arterial branches. PERITONEUM / RETROPERITONEUM: Trace free fluid around the liver and gallbladder. BONES: There are degenerative changes in the lumbar spine. Compression deformities at L3 and L5 vertebral bodies. SOFT TISSUES: Unremarkable. IMPRESSION: 1. Right lower lobe and left lower lobe atelectasis/consolidation. 2. Chronic pancreatitis. 3. Trace free fluid around the liver and gallbladder. It is of uncertain etiology. Correlate for possible developing liver cirrhosis. This may be also cardiac in nature. 4. Unremarkable small bowel and colon. Majority of small bowel is decompressed. Signed by: Dr. Mekhi Davis M.D. on 06/08/2018 8:12 PM
[2018-06-08] MEDS: ATORVASTATIN 20 MG TAB PEG SCH (21:00)
[2018-06-08] MEDS: INSULIN DETEMIR 100 UNIT/ML PEN SQ SCH (22:22)
[2018-06-09] VITALS (79 sets, daily range): BP systolic 92–149; BP diastolic 29–88
[2018-06-09] MEDS: PIPER-TAZ 3.375 GM 50 ML IV SCH ×4 (00:03→20:57)
[2018-06-09] MEDS: SODIUM CHLORIDE 0.9% 1000ML 1,000 ML IV SCH ×2 (00:03→17:57)
[2018-06-09] MEDS: MIDAZOLAM HCL 25 MG in SODIUM CHLORIDE 0.9% 50ML 45 ML IV PRN ×3 (00:33→22:56)
[2018-06-09 04:41] LABS: BASOPHILS # (AUTO) 0.1 (0.0-0.1); BASOPHILS % 0.6 % (0.0-1.0); EOSINOPHILS # (AUTO) 0.5 (0.0-0.4); EOSINOPHILS % 6.3 % (0.0-6.0); HEMATOCRIT 27.9 % (38.2-49.6); HEMOGLOBIN 8.8 g/dL (14.0-18.0); LYMPHOCYTES # (AUTO) 1.2 (1.0-3.2); LYMPHOCYTES % 13.4 % (18.0-39.1); MEAN CORPUSCULAR HEMOGLOBIN 24.8 pg (28-32); MEAN CORPUSCULAR HGB CONC 31.5 g/dL (31-35); MEAN CORPUSCULAR VOLUME 78.6 fL (81-99); MONOCYTES # (AUTO) 0.9 (0.2-0.8); MONOCYTES % 10.4 % (4.4-11.3); NEUTROPHILS # (AUTO) 5.9 (2.1-6.9); NEUTROPHILS % 68.9 % (38.7-80.0); PLATELET COUNT 164 x10e3/uL (140-360); RED BLOOD COUNT 3.55 x10e6/uL (4.3-5.7); RED CELL DISTRIBUTION WIDTH 17.9 % (11.7-14.4)
[2018-06-09 05:06] LABS: ALBUMIN 2.3 g/dL (3.5-5.0); ALBUMIN/GLOBULIN RATIO 0.7 (0.8-2.0); ANION GAP 15.5 mmol/L (8-16); CALCIUM 9.1 mg/dL (8.4-10.2); CREATININE, SERUM 1.4 mg/dL (0.72-1.25); POTASSIUM 3.5 mmol/L (3.5-5.1)
[2018-06-09 06:08] LABS: ABG PH 7.48 (7.31-7.41)
[2018-06-09 06:09] LABS: ABG HCO3 31 mmol/L (23-28); ABG PCO2 42 mmHg (41-51); ABG PO2 123 mmHg (80-105)
[2018-06-09] MEDS: ALBUTEROL SULF 0.083% NEB SOLN 3 ML NEB INH PRN ×3 (07:00→19:15)
--- NOTE | 2018-06-09 07:03 | Diagnostic Imaging Report ---
EXAMINATION: CHEST SINGLE (PORTABLE) INDICATION: Mechanical ventilation COMPARISON: 06/08/2018 FINDINGS: AP view TUBES and LINES: Endotracheal tube tip is 2.8 cm above the jayleen. Left IJ central line with tip in proximal SVC. NG tube in good position LUNGS: Lungs are well inflated. There are bibasilar atelectasis. There is mild prominence of the central pulmonary vasculature, consistent with pulmonary venous congestion. Interlobular septi thickening present. PLEURA: No pleural effusion or pneumothorax. HEART AND MEDIASTINUM: Cardiac size is mildly enlarged. BONES AND SOFT TISSUES: No acute osseous lesion. Soft tissues are unremarkable. UPPER ABDOMEN: No free air under the diaphragm. IMPRESSION: 1. Tubes and lines are in good position. 2. Findings compatible with developing cardiogenic pulmonary edema Signed by: Dr. Adalberto Simental M.D. on 06/09/2018 7:00 AM
[2018-06-09] MEDS: INSULIN LISPRO 100 UNIT/1 ML 3ML VIAL SQ SCH ×4 (07:30→20:53)
--- NOTE | 2018-06-09 08:08 | Progress Note ---
DATE: June 09, 2018 Patient is still ventilated, currently on assist control of 20, FiO2 40, PEEP of 5, tidal volume 500. He has been sedated on fentanyl and Versed. PHYSICAL EXAMINATION VITALS: Blood pressure 100/36, pulse 86, oxygen saturation 96%. HEENT: Oral intubation. Oral G-tube. NECK: No tenderness. LUNGS: Crackles in the bases. HEART: No murmurs. ABDOMEN: Soft. EXTREMITIES: Some pedal edema. LAB: Hemoglobin 8.8. BUN 67, creatinine 1.4. Total bilirubin 1.7, AST 361, ALT 538, albumin 2.3. Rest of the lab unremarkable. Chest x-ray consistent with pulmonary edema. IMPRESSIONS 1. Acute respiratory failure. 2. Pulmonary edema. 3. Chronic obstructive pulmonary disease. 4. Hypertension. 5. Hyperlipidemia. 6. Gastroesophageal reflux disease. 7. Atrial fibrillation. 8. Obesity. 9. Coronary artery disease. 10. Type-2 diabetes mellitus. 11. Obstructive sleep apnea. RECOMMENDATIONS 1. Patient is currently on Zosyn 3.375 q.6 IV. 1. Doxycycline 100 q.12 IV. 2. Pepcid 20 q.12. 3. Nebulization p.r.n. Will recommend to continue with the same medication to keep him sedated and to continue with the current ventilatory settings. Job#: [id number] CQ
[2018-06-09] MEDS: FERROUS SULFATE 325 MG TAB PO SCH ×2 (09:00→15:16)
[2018-06-09] MEDS: METOPROLOL TARTRATE 25 MG TAB PO SCH ×2 (09:00→15:16)
[2018-06-09] MEDS: FOLIC ACID 1 MG TAB PO SCH (09:00)
[2018-06-09] MEDS ORDERED: ACETAZOLAMIDE 250 MG TAB PO SCH (09:00)
[2018-06-09] MEDS: PYRIDOXINE HCL 50 MG TAB PEG SCH (09:00)
[2018-06-09] MEDS: PANTOPRAZOLE SOD 40 MG TABEC PO SCH (09:00)
[2018-06-09] MEDS: HYDRALAZINE HCL 25 MG TAB PEG SCH (09:00)
[2018-06-09] MEDS ORDERED: POTASSIUM CHLORIDE 20MEQ/100ML 200 ML IV ONE (09:15)
[2018-06-09] MEDS: GLIMEPIRIDE 2 MG TAB PO SCH ×2 (09:30→15:16)
[2018-06-09] MEDS: NYSTATIN 15 GM POWDER UD BTL TOP SCH (09:48)
[2018-06-09] MEDS: BALSAM PERU/CASTOR OIL 60 GM OINT...G. TP SCH (09:48)
[2018-06-09] MEDS: FUROSEMIDE INJ 10 MG/ML 4 ML VIAL IV SCH ×2 (09:49→17:34)
[2018-06-09] MEDS: DOXYCYCLINE 100MG/NS 100ML 100 ML IV SCH (10:17)
[2018-06-09] MEDS: FAMOTIDINE 20 MG/2 ML VIAL IV SCH ×2 (10:18→20:57)
--- NOTE | 2018-06-09 14:22 | Diagnostic Imaging Report ---
EXAM: Right Upper Quadrant Ultrasound INDICATION: \S\sepsis and abnormal liver function \[id number] \S\1310 COMPARISON: CT abdomen/pelvis dated 06/08/2018. TECHNIQUE: Transverse and longitudinal images of the right upper abdomen were obtained. FINDINGS: Limited study due to body habitus. Liver: Size: 17.3 cm in the right midclavicular line, mildly enlarged Appearance: Normal echogenicity, slightly nodular contour Mass: No focal masses Gallbladder: Stones/Sludge: None Wall: 0.4 cm Appearance: No pericholecystic fluid or hydrops. Sonographic Salgado's Sign: Negative Bile Ducts: Intrahepatic Ducts: No dilatation Extrahepatic Ducts: Common bile duct measures 0.6 cm, no dilatation Pancreas: Not well visualized. Right Kidney: Size: 13 cm Echogenicity: Normal Parenchymal thickness: Normal Collecting system: No hydronephrosis Stones: None Cyst/Mass: None Vessels: Aorta: Not well visualized. Inferior Vena Cava: Visualized portions are normal Main Portal Vein: 1.2 cm, normal size with hepatopetal flow. Free Fluid: Trace parapelvic cyst, seen only on one image. IMPRESSION: Slightly nodular hepatic contour, suggestive of early cirrhotic changes. Trace ascites. Minimal gallbladder wall thickening which is nonspecific. No gallbladder distention or evidence of cholelithiasis. Signed by: Dr. Lior Alan MD on 06/09/2018 2:18 PM
--- NOTE | 2018-06-09 14:53 | Consultation ---
DATE OF CONSULTATION: June 09, 2018 INFECTIOUS DISEASE CONSULTATION ATTENDING PHYSICIAN: Robert Covington MD REASON FOR CONSULTATION: Sepsis. Thank you, Dr. Covington, for asking me to see this patient. HISTORY: The patient is a 72-year-old man referred for sepsis. He is unable to give history because he is sedated and intubated. The chart review showed that he was sent to the emergency department on 06/06/2018 with chest pain and shortness of breath. The patient was evaluated by the cardiology service, but later he sustained cardiopulmonary arrest in the emergency room and responded to resuscitation. Currently he remains intubated and has copious thick tracheal secretions. Also, the patient has had loose malodorous stools. In the emergency department, He was noted to have temperature of 98.5 degrees Fahrenheit, pulse 91, respiratory rate 24, blood pressure 141/49 and oxygen saturation 100% on 100% FIO2. Initial laboratory studies showed blood leukocyte count of 6130 with 59.7% neutrophils, BUN 52, creatinine 1.53, AST 713, ALT 639, alk phos 69, total bilirubin 2.5. Chest x-ray showed mild cardiomegaly with interstitial edema, left basilar atelectasis and/or consolidation. PAST MEDICAL HISTORY: Obesity, diabetes mellitus type 2, hypertension, hyperlipidemia, coronary artery disease, systolic and diastolic congestive heart failure, atrial fibrillation, cor pulmonale, chronic obstructive pulmonary disease, obstructive sleep apnea, peripheral arterial disease, severe osteoarthritis and disability. PAST SURGICAL HISTORY: Unable to obtain. ALLERGIES: NO KNOWN DRUG ALLERGIES. MEDICATION: See MAR. The current antibiotics are Zosyn 3.375 grams IV piggyback q.6 h. and doxycycline 100 mg IV piggyback q.12 h. IMMUNIZATIONS: Unable to verify influenza and pneumococcal vaccination status at this time. FAMILY HISTORY: Significant for diabetes mellitus and hypertension. SOCIAL HISTORY: [facility] [place] a [facility] [place]. Unable to obtain history of alcohol or tobacco use. REVIEW OF SYSTEMS: Unable to obtain. PHYSICAL EXAMINATION GENERAL: Sedated with respiratory support. VITALS: T-max 100.8, pulse 85, respiratory rate 20, blood pressure 122/50, weight 380 pounds. HEENT: Normocephalic. There is no icterus or injection of conjunctivae. There is no ear or nasal discharge. Orally intubated. NECK: Short but supple. No lymphadenopathy. LUNGS: Rhonchi bilaterally. HEART: Normal S1 and S2. ABDOMEN: Soft. EXTREMITIES: No edema, clubbing or cyanosis. SKIN: There is a stage-2 ulcer of the right ischial area and left buttock. There is an erythematous rash in the perineum. CASING CREW: Sedated. LABORATORY AND DIAGNOSTICS: WBC 8570, down from 15, 960; hemoglobin 8.8; platelets 164,000; neutrophils 68.9, lymphs 13.4, monos 10.4, eosinophils 6.3, basophils 0.6. BUN 67, creatinine 1.4, AST 361, ALT 538, alk phos 60, total bilirubin 1.7. Blood culture yielded no growth. Urine culture grew Klebsiella pneumoniae. Tracheal aspirate culture is growing Staphylococcus aureus. CT scan of the abdomen and pelvis showed trace fluid around the liver and gallbladder of uncertain etiology, unremarkable small bowel and colon, right lower lobe and left upper lobe atelectasis/consolidation, and chronic pancreatitis. Repeat chest x-ray showed findings compatible with developing cardiogenic pulmonary edema. IMPRESSION 1. Sepsis present on admission. The sources may include healthcare-associated pneumonia and urinary tract infection, but gallbladder disease and Clostridium difficile infection cannot be excluded. The decubitus ulcer does not appear infected. 2. Status post cardiopulmonary arrest. 3. Systolic and diastolic congestive heart failure. 4. Chronic obstructive pulmonary disease. 5. Obstructive sleep apnea. 6. Atrial fibrillation. PLAN 1. Await tracheal aspirate isolate sensitivity. Check C. difficile test if diarrhea occurs. 2. Change doxycycline to vancomycin 15 mg per kg q.24 h. Reduce Zosyn to 3.375 grams IV piggyback q.8 h. 3. Check gallbladder ultrasound. Job#: [id number] NATALIE ATKINS
[2018-06-09] MEDS: IPRATROPIUM BROMIDE 0.02% 2.5 ML NEB NEB PRN ×2 (14:58→19:15)
[2018-06-09] MEDS: VANCOMYCIN HCL 1.5 GM in SODIUM CHLORIDE 0.9% 250ML 300 ML IV SCH (15:13)
[2018-06-09] MEDS: INSULIN DETEMIR 100 UNIT/ML PEN SQ SCH (20:53)
[2018-06-09] MEDS: FENTANYL CITRATE INJ 2,000 MCG in SODIUM CHLORIDE 0.9% 250ML 210 ML IV PRN (22:55)
[2018-06-10] VITALS (61 sets, daily range): BP systolic 111–157; BP diastolic 34–73
[2018-06-10] MEDS: ALBUTEROL SULF 0.083% NEB SOLN 3 ML NEB INH PRN ×4 (02:30→19:10)
[2018-06-10] MEDS: IPRATROPIUM BROMIDE 0.02% 2.5 ML NEB NEB PRN ×4 (02:30→19:10)
[2018-06-10] MEDS: MIDAZOLAM HCL 25 MG in SODIUM CHLORIDE 0.9% 50ML 45 ML IV PRN ×2 (03:37→06:01)
[2018-06-10 04:47] LABS: BASOPHILS % 0.4 % (0.0-1.0); EOSINOPHILS # (AUTO) 0.7 (0.0-0.4); EOSINOPHILS % 8.6 % (0.0-6.0); HEMATOCRIT 29.7 % (38.2-49.6); HEMOGLOBIN 9.4 g/dL (14.0-18.0); LYMPHOCYTES # (AUTO) 1.4 (1.0-3.2); LYMPHOCYTES % 17.2 % (18.0-39.1); MEAN CORPUSCULAR HEMOGLOBIN 24.8 pg (28-32); MEAN CORPUSCULAR HGB CONC 31.6 g/dL (31-35); MEAN CORPUSCULAR VOLUME 78.4 fL (81-99); MONOCYTES % 12.3 % (4.4-11.3); NEUTROPHILS # (AUTO) 4.9 (2.1-6.9); NEUTROPHILS % 61.1 % (38.7-80.0); PLATELET COUNT 173 x10e3/uL (140-360); RED BLOOD COUNT 3.79 x10e6/uL (4.3-5.7); RED CELL DISTRIBUTION WIDTH 18.4 % (11.7-14.4)
[2018-06-10 04:59] LABS: INR 1.69; PROTHROMBIN TIME 21.2 seconds (11.9-14.5)
[2018-06-10 05:00] LABS: PARTIAL THROMBOPLASTIN TIME 31.9 seconds (23.8-35.5)
[2018-06-10 05:18] LABS: ALANINE AMINOTRANSFERASE 435 IU/L (0-55); ALBUMIN 2.3 g/dL (3.5-5.0); ALBUMIN/GLOBULIN RATIO 0.6 (0.8-2.0); ALKALINE PHOSPHATASE 63 IU/L (40-150); BLOOD UREA NITROGEN 55 mg/dL (7-26); BUN/CREATININE RATIO 50 (6-25); CALCIUM 9.9 mg/dL (8.4-10.2); CARBON DIOXIDE 30 mmol/L (22-29); CHLORIDE 110 mmol/L (98-107); EST GLOMERULAR FILTRATION RATE > 60 ML/MIN (60-); GLUCOSE 155 mg/dL (74-118); SODIUM 152 mmol/L (136-145)
[2018-06-10] MEDS: PIPER-TAZ 3.375 GM 50 ML IV SCH ×3 (05:24→22:00)
[2018-06-10] MEDS: GLIMEPIRIDE 2 MG TAB PO SCH ×2 (08:00→17:59)
[2018-06-10] MEDS: PANTOPRAZOLE SOD 40 MG TABEC PO SCH (09:00)
[2018-06-10] MEDS: FUROSEMIDE INJ 10 MG/ML 4 ML VIAL IV SCH ×2 (09:29→17:59)
[2018-06-10] MEDS: FERROUS SULFATE 325 MG TAB PO SCH ×2 (09:29→17:59)
[2018-06-10] MEDS: FOLIC ACID 1 MG TAB PO SCH (09:29)
[2018-06-10] MEDS: FAMOTIDINE 20 MG/2 ML VIAL IV SCH ×2 (09:29→17:59)
[2018-06-10] MEDS: PYRIDOXINE HCL 50 MG TAB PEG SCH (09:29)
[2018-06-10] MEDS: BALSAM PERU/CASTOR OIL 60 GM OINT...G. TP SCH (09:30)
[2018-06-10] MEDS: METOPROLOL TARTRATE 25 MG TAB PO SCH ×2 (09:30→17:59)
[2018-06-10] MEDS: NYSTATIN 15 GM POWDER UD BTL TOP SCH (09:30)
[2018-06-10] MEDS: INSULIN LISPRO 100 UNIT/1 ML 3ML VIAL SQ SCH ×3 (12:00→23:42)
[2018-06-10] MEDS: SODIUM CHLORIDE 0.9% 1000ML 1,000 ML IV SCH (12:10)
[2018-06-10] MEDS: VANCOMYCIN HCL 1.5 GM in SODIUM CHLORIDE 0.9% 250ML 300 ML IV SCH (13:53)
[2018-06-10] MEDS: INSULIN DETEMIR 100 UNIT/ML PEN SQ SCH (22:02)
[2018-06-10] MEDS ORDERED: DEXTROSE 5% 1,000 ML IV SCH (22:15)
[2018-06-10] MEDS ORDERED: PROPOFOL IV EMULSION 10 MG/ML 50 ML VIAL IV PRN (23:15)
[2018-06-11] VITALS (49 sets, daily range): BP systolic 101–147; BP diastolic 34–74
[2018-06-11] MEDS ORDERED: DEXMEDETOMIDINE HCL 200 MCG in SODIUM CHLORIDE 0.9% 50ML 48 ML IV PRN (00:15)
[2018-06-11] MEDS: ALBUTEROL SULF 0.083% NEB SOLN 3 ML NEB INH PRN (02:20)
[2018-06-11] MEDS: IPRATROPIUM BROMIDE 0.02% 2.5 ML NEB NEB PRN (02:20)
--- NOTE | 2018-06-11 04:15 | Progress Note ---
DATE: June 10, 2018 PULMONARY MEDICINE PROGRESS NOTE SUBJECTIVE: Mr. Conway was seen and examined at bedside. He remains intubated on ventilator, 20/500/40/5 on ventilator. Peak pressure is 22, minute ventilation is 10 liters, respiratory rate is 20. ABG 7.48/42/123. Urine output is good. He is getting NS at 60 mL per hour. Fentanyl and Versed were held at 02:05 p.m. and patient is yet to awaken. REVIEW OF SYSTEMS: No ability to get review of system as he is intubated. OBJECTIVE VITAL SIGNS: Patient is currently afebrile. Vital signs noted per electronic record. GENERAL: In bed, not awakening. He will open his eyes or barely grimace his face with sternal rub. HEENT: Normocephalic, atraumatic. NECK: Supple. Throat midline. LUNGS: Bilateral air entry, decreased breath sounds, limited. CARDIOVASCULAR: S1 and S2. No murmurs, rubs or gallops. ABDOMEN: Soft, nontender. EXTREMITIES: No clubbing, no cyanosis. There is 1+ leg edema. INTEGUMENT: No rash. No purpura. LABS: Sodium 152, 4.0 potassium, 30 bicarbonate, 55 BUN, 1.1 creatinine. White count 8, 30 hematocrit, 173 platelets. AST 199, ALT 435, alkaline phosphatase 63. T. bili 1.9. LFTs are improving. Yesterday chest x-ray compatible with evolving pulmonary edema. IMPRESSION 1. Acute respiratory failure, intubated. 2. Status post 7-minute cardiac arrest. 3. Hypernatremia. 4. Encephalopathy, medication and toxic metabolic. 5. Liver injury, acute, hypoperfusion related. 6. Urinary tract infection. 7. Possible pneumonia. 8. Systolic/diastolic congestive heart failure. 9. Obesity, hypoventilation suspected. 10. Obstructive sleep apnea. 11. Atrial fibrillation. 12. Suspected pulmonary hypertension. 13. Hypertension, hyperlipidemia, and diabetes. PLAN: Continue close followup. We will initiate tube feeds. Modify ventilator. Consideration for early tracheostomy should be done given his baseline bedbound state and this may allow him to mobilize more quickly and also get off the ventilator more quickly, allowing better restorative care and care of his ulcer and other skin disease. Continue to hold off on sedation and try to allow the patient to awaken as the last chance prior to tracheostomy. Follow up closely. Job#: [id number] VAS
[2018-06-11 04:29] LABS: BASOPHILS % 0.3 % (0.0-1.0); EOSINOPHILS # (AUTO) 0.6 (0.0-0.4); EOSINOPHILS % 7.9 % (0.0-6.0); HEMATOCRIT 31.5 % (38.2-49.6); HEMOGLOBIN 9.6 g/dL (14.0-18.0); MEAN CORPUSCULAR HEMOGLOBIN 24.6 pg (28-32); MEAN CORPUSCULAR HGB CONC 30.5 g/dL (31-35); MEAN CORPUSCULAR VOLUME 80.8 fL (81-99); MONOCYTES # (AUTO) 1.1 (0.2-0.8); MONOCYTES % 13.3 % (4.4-11.3); NEUTROPHILS # (AUTO) 5.2 (2.1-6.9); PLATELET COUNT 180 x10e3/uL (140-360); RED CELL DISTRIBUTION WIDTH 18.7 % (11.7-14.4)
[2018-06-11 04:50] LABS: ALANINE AMINOTRANSFERASE 302 IU/L (0-55); ALBUMIN 2.3 g/dL (3.5-5.0); ALBUMIN/GLOBULIN RATIO 0.6 (0.8-2.0); ALKALINE PHOSPHATASE 68 IU/L (40-150); ANION GAP 8.7 mmol/L (8-16); BLOOD UREA NITROGEN 52 mg/dL (7-26); BUN/CREATININE RATIO 47 (6-25); CALCIUM 10.1 mg/dL (8.4-10.2); CARBON DIOXIDE 35 mmol/L (22-29); CHLORIDE 112 mmol/L (98-107); CREATININE, SERUM 1.11 mg/dL (0.72-1.25); EST GLOMERULAR FILTRATION RATE > 60 ML/MIN (60-); GLUCOSE 98 mg/dL (74-118); POTASSIUM 3.7 mmol/L (3.5-5.1); SODIUM 152 mmol/L (136-145)
[2018-06-11] MEDS: INSULIN LISPRO 100 UNIT/1 ML 3ML VIAL SQ SCH ×3 (06:00→18:00)
[2018-06-11] MEDS: PIPER-TAZ 3.375 GM 50 ML IV SCH ×3 (06:09→21:08)
--- NOTE | 2018-06-11 06:57 | Diagnostic Imaging Report ---
EXAMINATION: CHEST SINGLE (PORTABLE) INDICATION: CHF COMPARISON: 06/08/2018 FINDINGS: AP view TUBES and LINES: Endotracheal tube tip is 3 cm above the jayleen. Left IJ central line with tip in proximal SVC. NG tube in good position LUNGS: Lungs are well inflated. There are bibasilar atelectasis. There is interval increase in prominence of the central pulmonary vasculature, consistent with pulmonary venous congestion. Interlobular septi thickening present. PLEURA: No pleural effusion or pneumothorax. HEART AND MEDIASTINUM: Cardiac size is mildly enlarged. BONES AND SOFT TISSUES: No acute osseous lesion. Soft tissues are unremarkable. UPPER ABDOMEN: No free air under the diaphragm. IMPRESSION: 1. Tubes and lines are in good position. 2. Worsening pulmonary edema with trace of bilateral pleural effusions Signed by: Dr. Adalberto Simental M.D. on 06/11/2018 6:54 AM
[2018-06-11] MEDS: PANTOPRAZOLE SOD 40 MG TABEC PO SCH (09:00)
[2018-06-11] MEDS: FERROUS SULFATE 325 MG TAB PO SCH ×2 (09:10→18:01)
[2018-06-11] MEDS: FOLIC ACID 1 MG TAB PO SCH (09:10)
[2018-06-11] MEDS: FAMOTIDINE 20 MG/2 ML VIAL IV SCH ×2 (09:10→18:00)
[2018-06-11] MEDS: GLIMEPIRIDE 2 MG TAB PO SCH ×2 (09:10→18:00)
[2018-06-11] MEDS: FUROSEMIDE INJ 10 MG/ML 4 ML VIAL IV SCH (09:10)
[2018-06-11] MEDS: PYRIDOXINE HCL 50 MG TAB PEG SCH (09:10)
[2018-06-11] MEDS: NYSTATIN 15 GM POWDER UD BTL TOP SCH (09:11)
[2018-06-11] MEDS: METOPROLOL TARTRATE 25 MG TAB PO SCH ×2 (09:11→18:01)
[2018-06-11] MEDS: BALSAM PERU/CASTOR OIL 60 GM OINT...G. TP SCH (09:11)
[2018-06-11] MEDS: ACETAMINOPHEN 325 MG TAB PO PRN (12:15)
[2018-06-11] MEDS ORDERED: LACTULOSE SYRUP 20 GM/30 ML UDC PO PRN (12:30)
[2018-06-11] MEDS ORDERED: FUROSEMIDE INJ 100 MG in SODIUM CHLORIDE 0.9% 100 ML 90 ML IV SCH (13:00)
[2018-06-11] MEDS ORDERED: CHLOROTHIAZIDE SODIUM 500 MG VIAL IV NR (13:15)
[2018-06-11] MEDS ORDERED: SODIUM CHLORIDE 0.9% IV ONE (13:30)
[2018-06-11] MEDS ORDERED: CHLOROTHIAZIDE SODIUM IV ONE (13:30)
[2018-06-11] MEDS ORDERED: MANNITOL 25% 12.5GM/50 ML VIAL IV NR (13:45)
[2018-06-11] MEDS: VANCOMYCIN HCL 1.5 GM in SODIUM CHLORIDE 0.9% 250ML 300 ML IV SCH (15:15)
[2018-06-11] MEDS: INSULIN DETEMIR 100 UNIT/ML PEN SQ SCH (21:00)
[2018-06-11] MEDS: FUROSEMIDE INJ 100 MG in SODIUM CHLORIDE 0.9% 100 ML 90 ML IV SCH (21:05)
[2018-06-12] VITALS (40 sets, daily range): BP systolic 126–166; BP diastolic 36–80
[2018-06-12] MEDS: FUROSEMIDE INJ 100 MG in SODIUM CHLORIDE 0.9% 100 ML 90 ML IV SCH ×4 (00:08→20:21)
--- NOTE | 2018-06-12 00:57 | Consultation ---
DATE OF CONSULTATION: June 11, 2018 RENAL CONSULTATION REQUESTING PHYSICIAN: Dr. Robert Covington. REASONS FOR CONSULTATION 1. Elevated serum creatinine. 2. Fluid, electrolyte and acid-based management. 3. Hypernatremia. HISTORY OF PRESENT ILLNESS: This is a 72-year-old man with history of; 1. Diabetes mellitus. 2. Hypertension. 3. Morbid obesity. 4. Coronary artery disease. 5. Dyslipidemia. 6. Congestive heart failure. 7. Atrial fibrillation. 8. COPD. 9. Sleep apnea. 10. Peripheral vascular disease. 11. Osteoarthritis. Patient was admitted to [facility] for possible sepsis after he had presented with chief complaint of chest pain and shortness of breath. Hospital course was complicated with cardiopulmonary arrest. He is currently in the ICU, intubated and on the ventilator. Nephrology consultation has been requested for elevated serum creatinine as well as fluid, electrolyte and acid-based management. His labs today showed serum sodium of 152, potassium 3.7, BUN of 52, and creatinine of 1.1. His serum creatinine level on admission was 0.7, however, had increased to 1.5 on June 08, 2018. Chest x-ray shows worsening pulmonary edema and pleural effusion. Nurse at bedside. PAST MEDICAL HISTORY: As per HPI. PAST SURGICAL HISTORY: As per HPI. ALLERGIES: PER MAR. MEDICATIONS: Per MAR. SOCIAL HISTORY, FAMILY HISTORY, AND REVIEW OF SYSTEMS: Unobtainable as the patient is presently intubated and on the ventilator. PHYSICAL EXAMINATION GENERAL: Intubated and on the ventilator. VITAL SIGNS: Blood pressure is 109/35, pulse is 76. Input and output noted. HEENT: Head atraumatic, normocephalic. NECK: Supple. CHEST: Lungs with coarse breath sounds bilaterally. CARDIOVASCULAR: S1 and S2 heard. ABDOMEN: Soft, obese. EXTREMITIES: 2 to 3+ edema. NEUROLOGIC: On the ventilator. PSYCHIATRIC: Unable to assess. GENITOURINARY: Webb catheter in place. LABS: Serum sodium is 152, potassium 3.7, chloride 112, bicarbonate 35, BUN is 52, creatinine 1.1, calcium 10.1. Hemoglobin is 9.6. Chest x-ray findings noted. ASSESSMENT 1. Acute kidney injury-nonoliguric. 2. Fluid overload. 3. Hypernatremia. 4. Morbid obesity. 5. Respiratory failure. 6. Anemia. 7. Congestive heart failure. 8. Status post cardiopulmonary arrest. 9. Diabetes mellitus. 10. Hypertension. 11. Right renal cyst. PLAN 1. Acute kidney injury was likely prerenal etiology as renal function is improving with serum creatinine at 1.1 today from 1.5 on June 08, 2018. There was no hydronephrosis on renal imaging. We will continue to monitor renal indices and urine output. 2. Volume status. Fluid overload on exam and plus pulmonary edema on chest x-ray. We will start on Lasix drip. 3. Start on free water for hypernatremia. 4. Serum potassium/calcium, stable, monitor. 5. Monitor serum phosphorus and magnesium levels. 6. Monitor H and H levels. 7. Blood pressure is stable. Monitor. 8. Vent for pulmonary respiratory failure. 9. Status post cardiopulmonary arrest/congestive heart failure per cardiology. We will dose with mannitol 25 g IV times 1 and Diuril 500 mg IV times 1. 10. Patient is critically ill with guarded prognosis. Presently, there is no acute indication for hemodialysis. We will continue to closely monitor the renal function, volume status, serum electrolytes, urine output, and acid-base status. 1. Plans discussed with patient nurse. Thanks for this interesting consult. We will continue to closely follow the patient. Please do not hesitate to call us for any further questions. Job#: [id number] JUAN
[2018-06-12 05:06] LABS: BASOPHILS # (AUTO) 0.1 (0.0-0.1); BASOPHILS % 0.5 % (0.0-1.0); EOSINOPHILS # (AUTO) 1.1 (0.0-0.4); EOSINOPHILS % 10.8 % (0.0-6.0); HEMATOCRIT 37.6 % (38.2-49.6); HEMOGLOBIN 10.9 g/dL (14.0-18.0); LYMPHOCYTES # (AUTO) 1.1 (1.0-3.2); LYMPHOCYTES % 10.9 % (18.0-39.1); MEAN CORPUSCULAR HEMOGLOBIN 24.4 pg (28-32); MONOCYTES # (AUTO) 1.2 (0.2-0.8); MONOCYTES % 11.6 % (4.4-11.3); NEUTROPHILS # (AUTO) 6.9 (2.1-6.9); NEUTROPHILS % 65.8 % (38.7-80.0); PLATELET COUNT 199 x10e3/uL (140-360); RED BLOOD COUNT 4.47 x10e6/uL (4.3-5.7); RED CELL DISTRIBUTION WIDTH 18.6 % (11.7-14.4)
--- NOTE | 2018-06-12 05:07 | Progress Note ---
DATE: June 11, 2018 Dictated on behalf of Zain Baron MD SUBJECTIVE: Patient is a 72-year-old who was admitted among other diagnosis due to respiratory failure, COPD, CHF, coronary artery disease, morbid obesity, obstructive sleep apnea. He was intubated and started with mechanical ventilation on June 07, 2018. He has been off sedation since yesterday, state still not responding. PHYSICAL EXAMINATION GENERAL: He is obese. VITALS: Pulse is 74, oxygen saturation 100, blood pressure 100/45, temperature up to 101. He is on assist control of 14, tidal volume 450, FiO2 of 40%, PEEP of 5. HEENT: Oral intubation. Oral G-tube. NECK: Short neck. LUNGS: Crackles and rhonchi. HEART: No murmurs. ABDOMEN: Prominent. EXTREMITIES: There is some pedal edema. LABS: Hemoglobin 9.6. Rest of CBC unremarkable. Sodium 152, BUN 52, creatinine 1.11. Total bilirubin 2.2. SGOT 130, SGPT 302. Albumin 2.3. CHEST X-RAY: There is worsening pulmonary edema and bilateral pleural effusion. IMPRESSION 1. Sepsis. 2. Pneumonia. 3. Respiratory failure state after cardiac arrest. 4. Obesity. 5. Obstructive sleep apnea. 6. Atrial fibrillation. 1. Chronic obstructive pulmonary disease. 2. Obstructive sleep apnea as reported. 3. Diabetes mellitus. 4. Sacral decubitus ulcer. 5. Congestive heart failure. RECOMMENDATIONS: To continue with the current ventilatory settings. Awaiting for the patient to be more responsive. Try if it is possible to wean him. Continue with the current medications including Lasix drip. He is on different antibiotics and I will recommend for tomorrow ABGs and chest x-ray as well as chemistry and CBC. Job#: [id number] VAS
[2018-06-12 05:08] LABS: MEAN CORPUSCULAR VOLUME 84.1 fL (81-99)
[2018-06-12] MEDS: PIPER-TAZ 3.375 GM 50 ML IV SCH ×3 (05:21→21:42)
[2018-06-12] MEDS: INSULIN LISPRO 100 UNIT/1 ML 3ML VIAL SQ SCH ×5 (05:22→23:43)
[2018-06-12 05:38] LABS: ALANINE AMINOTRANSFERASE 234 IU/L (0-55); ALBUMIN 2.5 g/dL (3.5-5.0); ALBUMIN/GLOBULIN RATIO 0.5 (0.8-2.0); ALKALINE PHOSPHATASE 81 IU/L (40-150); ANION GAP 11.5 mmol/L (8-16); BLOOD UREA NITROGEN 52 mg/dL (7-26); BUN/CREATININE RATIO 48 (6-25); CALCIUM 10.4 mg/dL (8.4-10.2); CARBON DIOXIDE 38 mmol/L (22-29); CHLORIDE 103 mmol/L (98-107); CREATININE, SERUM 1.09 mg/dL (0.72-1.25); EST GLOMERULAR FILTRATION RATE > 60 ML/MIN (60-); GLUCOSE 140 mg/dL (74-118); POTASSIUM 3.5 mmol/L (3.5-5.1); SODIUM 149 mmol/L (136-145)
[2018-06-12 06:05] LABS: MAGNESIUM 1.4 MG/DL (1.3-2.1); PHOSPHORUS 4.4 MG/DL (2.3-4.7)
[2018-06-12 06:52] LABS: ABG HCO3 41 mmol/L (23-28); ABG PCO2 65 mmHg (41-51); ABG PO2 91 mmHg (80-105)
--- NOTE | 2018-06-12 08:45 | Diagnostic Imaging Report ---
PROCEDURE: CHEST SINGLE (PORTABLE) COMPARISON: 06/11/2018. INDICATIONS: INTUBATION FINDINGS: Endotracheal tube, enteric tube, and left internal jugular central venous catheter are unchanged in position relative to 06/11/2018, though the tip of the enteric tube is off the inferior edge of the current radiograph. Stable appearance of the lungs with a small left pleural effusion and bibasilar airspace opacities, likely atelectasis. Pulmonary venous congestion and mild enlargement of the cardiac silhouette. No acute osseous abnormalities. CONCLUSION: Stable position of support lines and tubes. Stable interstitial pulmonary edema and small left pleural effusion. Dictated by: Alexsander Cheung M.D. on 06/12/2018 at 8:54 Electronically approved by: Alexsander Cheung M.D. on 06/12/2018 at 8:54
[2018-06-12 08:58] LABS: ANISOCYTOSIS SLIGHT; EOSINOPHILS % (MANUAL) 11 % (0-7); HYPOCHROMASIA SLIGHT; LYMPHOCYTES % (MANUAL) 13 % (19-48); MONOCYTES % (MANUAL) 7 % (3.4-9.0); NEUTROPHILS % (MANUAL) 68 % (40-74); PLATELET ESTIMATE ADEQUATE; PLATELET MORPHOLOGY COMMENT NORMAL; RBC MORPHOLOGY COMMENT NORMAL
[2018-06-12] MEDS: PANTOPRAZOLE SOD 40 MG TABEC PO SCH (09:00)
[2018-06-12] MEDS ORDERED: LACTULOSE SYRUP 20 GM/30 ML UDC PO PRN (10:00)
[2018-06-12] MEDS: FERROUS SULFATE 325 MG TAB PO SCH ×2 (10:46→18:09)
[2018-06-12] MEDS: FOLIC ACID 1 MG TAB PO SCH (10:46)
[2018-06-12] MEDS: FAMOTIDINE 20 MG/2 ML VIAL IV SCH ×2 (10:46→18:09)
[2018-06-12] MEDS: PYRIDOXINE HCL 50 MG TAB PEG SCH (10:46)
[2018-06-12] MEDS: GLIMEPIRIDE 2 MG TAB PO SCH ×2 (10:46→18:09)
[2018-06-12] MEDS: NYSTATIN 15 GM POWDER UD BTL TOP SCH (10:47)
[2018-06-12] MEDS: MAGNESIUM OXIDE 400 MG TAB PO SCH ×2 (10:47→18:09)
[2018-06-12] MEDS: BALSAM PERU/CASTOR OIL 60 GM OINT...G. TP SCH (10:47)
[2018-06-12] MEDS: METOPROLOL TARTRATE 25 MG TAB PO SCH ×2 (10:47→18:10)
[2018-06-12] MEDS: ACETAZOLAMIDE SODIUM 500 MG/VIAL IV SCH ×3 (11:20→23:40)
[2018-06-12] MEDS ORDERED: SODIUM CHLORIDE 0.9% 250ML 250 ML ONE (14:11)
[2018-06-12] MEDS: VANCOMYCIN HCL 1.5 GM in SODIUM CHLORIDE 0.9% 250ML 300 ML IV SCH (15:15)
[2018-06-12] MEDS: INSULIN DETEMIR 100 UNIT/ML PEN SQ SCH (20:23)
[2018-06-12] MEDS: ONDANSETRON HCL INJ 2 MG/ML VIAL IV PRN (21:35)
[2018-06-13] VITALS (22 sets, daily range): BP systolic 135–183; BP diastolic 38–88
[2018-06-13] MEDS: FUROSEMIDE INJ 100 MG in SODIUM CHLORIDE 0.9% 100 ML 90 ML IV SCH ×2 (05:18→17:05)
[2018-06-13] MEDS: PIPER-TAZ 3.375 GM 50 ML IV SCH ×3 (05:18→21:00)
--- NOTE | 2018-06-13 05:32 | Diagnostic Imaging Report ---
EXAM: CHEST SINGLE (PORTABLE), AP 1 view INDICATION: Pulmonary edema COMPARISON: AP view the chest June 11, 2018 FINDINGS: LINES/TUBES: The endotracheal tube terminates 3 cm above the jayleen. Stable left internal jugular vein central line and nasal/oral gastric tube. LUNGS: Stable pulmonary edema. PLEURA: Suspected trace bilateral pleural effusions. HEART AND MEDIASTINUM: Stable enlargement. BONES AND SOFT TISSUES: No acute findings. IMPRESSION: No interval change. Signed by: Dr. Allegra Rodriguez M.D. on 06/13/2018 5:29 AM
[2018-06-13 05:38] LABS: BASOPHILS % 0.4 % (0.0-1.0); EOSINOPHILS # (AUTO) 0.8 (0.0-0.4); EOSINOPHILS % 7.2 % (0.0-6.0); HEMATOCRIT 38.2 % (38.2-49.6); HEMOGLOBIN 10.6 g/dL (14.0-18.0); LYMPHOCYTES # (AUTO) 0.7 (1.0-3.2); LYMPHOCYTES % 6.3 % (18.0-39.1); MEAN CORPUSCULAR HGB CONC 27.7 g/dL (31-35); MEAN CORPUSCULAR VOLUME 86.6 fL (81-99); MONOCYTES # (AUTO) 1.3 (0.2-0.8); MONOCYTES % 11.6 % (4.4-11.3); NEUTROPHILS # (AUTO) 8.4 (2.1-6.9); NEUTROPHILS % 74.1 % (38.7-80.0); PLATELET COUNT 209 x10e3/uL (140-360); RED BLOOD COUNT 4.41 x10e6/uL (4.3-5.7)
[2018-06-13] MEDS: INSULIN LISPRO 100 UNIT/1 ML 3ML VIAL SQ SCH ×4 (06:00→23:36)
[2018-06-13 06:45] LABS: ALANINE AMINOTRANSFERASE 159 IU/L (0-55); ALBUMIN 2.4 g/dL (3.5-5.0); ALBUMIN/GLOBULIN RATIO 0.5 (0.8-2.0); ALKALINE PHOSPHATASE 81 IU/L (40-150); BLOOD UREA NITROGEN 55 mg/dL (7-26); BUN/CREATININE RATIO 51 (6-25); CHLORIDE 102 mmol/L (98-107); CREATININE, SERUM 1.07 mg/dL (0.72-1.25); EST GLOMERULAR FILTRATION RATE > 60 ML/MIN (60-); GLUCOSE 135 mg/dL (74-118); POTASSIUM 3.6 mmol/L (3.5-5.1); SODIUM 151 mmol/L (136-145)
--- NOTE | 2018-06-13 06:48 | Progress Note ---
DATE: June 12, 2018 The patient is 72 years old. He is still unresponsive. EXAM VITALS: Blood pressure 131/61, temperature 99.7, pulse 75, oxygen saturation 100. He is on assist control of 14, tidal volume 450, FIO2 40, PEEP of 5. HEENT: Oral intubation. Oral G-tube. Atraumatic. NECK: No tenderness. LUNGS: Crackles and rhonchi. HEART: No heart murmurs. ABDOMEN: Prominent. EXTREMITIES: Some pedal edema. He had a chest x-ray that disclosed improvement of the aeration of the right lung. Still small bilateral pleural effusion. In terms of the CBC, hemoglobin is 9.8 and platelets 127,000. Chemistry: Sodium 134, BUN 35, creatinine 3.65. Magnesium 1.7. Total bilirubin 1.2. HMB SAB quantity 3.1. Gram stain of the sputum disclosed gram-positive cocci in pairs and clusters. IMPRESSION 1. Acute respiratory failure. 2. Sepsis. 3. Pneumonia. 4. Status post cardiac arrest. 5. Anemia. RECOMMENDATIONS: Continue with the same ventilatory settings. He is on nebulizations with Atrovent q.4 h. He is on Zosyn IV. Besides that, on Xarelto 20 mg daily, vancomycin 125 q.24 h. and other medications for his and problems with blood pressure. Job#: [id number] TAM
[2018-06-13 08:37] LABS: CALCIUM 9.4 mg/dL (8.4-10.2); CARBON DIOXIDE 39 mmol/L (22-29)
[2018-06-13 08:44] LABS: ANION GAP 13.6 mmol/L (8-16)
[2018-06-13] MEDS: PANTOPRAZOLE SOD 40 MG TABEC PO SCH (09:00)
--- NOTE | 2018-06-13 10:22 | Progress Note ---
DATE: 06/13/2018 PULMONARY CRITICAL CARE PROGRESS NOTE The patient is off sedation, but is only responding to noxious stimuli. He is receiving enteral feedings. He remains on a pressure regulated assist control. He is off pressors. OBJECTIVE VITALS: The patient is afebrile. The blood pressure is 154/53 and saturation is 100%. He is on a rate of 15 with a tidal volume of 450 mL and 40%. His PEEP is set at 5. HEENT: Shows no facial swelling or erythema. There is an oral endotracheal tube. CARDIAC: Reveals a regular rate and rhythm with normal S1 and S2. LUNGS: Auscultation of the lungs reveals decreased breath sounds at the bases. There is no wheezing. ABDOMEN: Soft and nontender. There is no rebound or guarding. EXTREMITIES: There is no leg edema or calf tenderness. LABORATORY DATA: Blood gas yesterday was 7.4, 65, 91, and 41. The sodium is 151 and the BUN to creatinine ratio is 55 to 1.07. The total bili is 1.8. The albumin is 2.4. MICROBIOLOGY DATA: Blood cultures from June 07, 2018, showing no growth. Sputum culture from June 07, 2018, shows MRSA. Urine culture from June 08, 2018, shows no growth. IMPRESSION 1. Anoxic brain injury following cardiopulmonary arrest. 2. Acute respiratory failure. 3. Obstructive sleep apnea. 4. Methicillin-resistant Staphylococcus aureus tracheobronchitis. 5. Acute kidney injury. 6. Mixed respiratory acidosis and metabolic alkalosis. 7. History of atrial fibrillation. PLAN 1. Overall prognosis remains poor. 2. Consider neurology evaluation to assess for anoxic brain injury. 3. Increase free water to correct for sodium. 4. Consider switching Lasix to Diamox to help correct the metabolic alkalosis. 5. Daily spontaneous breathing trials. Job#: [id number] TAM ATKINS
[2018-06-13 10:23] LABS: ANISOCYTOSIS SLIG; HYPOCHROMASIA SLIGHT; PLATELET ESTIMATE ADEQUATE; PLATELET MORPHOLOGY COMMENT NORMAL; POIKILOCYTOSIS SLIGHT; RBC MORPHOLOGY COMMENT NORMAL; TOXIC GRANULATION SLIGHT
[2018-06-13] MEDS: GLIMEPIRIDE 2 MG TAB PO SCH ×2 (10:25→17:18)
[2018-06-13] MEDS: FERROUS SULFATE 325 MG TAB PO SCH ×2 (10:25→17:18)
[2018-06-13] MEDS: CHLORTHALIDONE 25 MG TAB PO SCH (10:25)
[2018-06-13] MEDS: FOLIC ACID 1 MG TAB PO SCH (10:25)
[2018-06-13] MEDS: DEXTROSE 5% 1,000 ML IV SCH ×2 (10:25→18:30)
[2018-06-13] MEDS: PYRIDOXINE HCL 50 MG TAB PEG SCH (10:25)
[2018-06-13] MEDS: FAMOTIDINE 20 MG/2 ML VIAL IV SCH ×2 (10:25→17:18)
[2018-06-13] MEDS: METOPROLOL TARTRATE 25 MG TAB PO SCH ×2 (10:26→17:19)
[2018-06-13] MEDS: NYSTATIN 15 GM POWDER UD BTL TOP SCH (10:26)
[2018-06-13] MEDS: MAGNESIUM OXIDE 400 MG TAB PO SCH ×2 (10:26→17:47)
[2018-06-13] MEDS: BALSAM PERU/CASTOR OIL 60 GM OINT...G. TP SCH (10:26)
--- NOTE | 2018-06-13 12:04 | Diagnostic Imaging Report ---
EXAMINATION: Head CT HISTORY: Altered mental status COMPARISON: None available TECHNIQUE: Multidetector axial images were obtained without contrast from the foramen magnum to the vertex . The images were reconstructed using brain and bone algorithms. Thin section brain images were reformatted into coronal and sagittal planes. Intravenous contrast: None. Image quality: Motion/streaking artifact limits the evaluation of the skull base and posterior cranial fossa. Dose modulation, iterative reconstruction, and/or weight based adjustment of the mA/kV was utilized to reduce the radiation dose to as low as reasonably achievable. FINDINGS: Parenchyma: 1. Mildly compromised. Ventricles are quite matter hypodensities, most likely nonspecific chronic microvascular ischemic changes. 2. No mass or hemorrhage. No CT evidence of acute territorial vascular insult. Extra-axial spaces:No abnormal density. No extra-axial fluid collections Brain volume: Normal for age. Ventricles: No hydrocephalus or displacement. Arteries: No density suggestive of thrombus. Dural sinuses: No abnormal density. Extra-axial spaces: No abnormal density. Foramen magnum: No mass, Chiari malformation, or basilar invagination. Sella: No obvious mass. Paranasal/mastoid sinuses: Nonspecific partial opacification of the left greater than right mastoid air cells, likely effusion. Skull/Scalp: No lytic or blastic lesions. No fractures. IMPRESSION: 1. No acute intracranial abnormalities. 2. Mild chronic microvascular ischemic changes. Signed by: Dr. Zoya Lopez M.D. on 06/13/2018 12:01 PM
[2018-06-13] MEDS: VANCOMYCIN HCL 1.5 GM in SODIUM CHLORIDE 0.9% 250ML 300 ML IV SCH (17:05)
[2018-06-13] MEDS: INSULIN DETEMIR 100 UNIT/ML PEN SQ SCH (20:39)
--- NOTE | 2018-06-13 21:33 | Consultation ---
DATE OF CONSULTATION: June 13, 2018 NEUROLOGY CONSULTATION HISTORY OF PRESENT ILLNESS: Mr. Conway is a 72-year-old man, who has an extensive past medical history admitted to [facility] on June 06, 2018 with shortness of breath, chest pain, and generalized pain. At present, the patient is intubated and comatose. He is unable to provide any medical history. There are no family members available at the bedside. Therefore, history is obtained from review the electronic medical records. As stated above, Mr. Conway was brought to the Emergency Center at [facility] on June 06, 2018 with shortness of breath and chest pain as well as generalized pain. At the time of admission, he was awake, alert, oriented to person, unable to follow simple commands. In the Emergency Center, the patient was found to have negative troponins times 2. A BNP was 231. An electrocardiogram revealed atrial fibrillation. A chest x-ray revealed cardiomegaly with interstitial edema. Mr. Conway was admitted to [facility] for further evaluation and treatment of symptoms. On June 07, 2018, the patient was thought to be more confused than is his baseline. However, his vital signs were reportedly stable and there was no evidence of respiratory distress throughout the day. However, later in the today, telemetry noted the patient to be in asystole. Mr. Conway went into cardiac arrest. He received 7 minutes of cardiopulmonary resuscitation before spontaneous circulation returned. He received 2 units of epinephrine and 100 mg of succinylcholine for intubation. Mr. Conway was then transferred to the intensive care unit for a higher level of care. Upon admission to the intensive care unit, the patient was hypotensive and in respiratory failure. A chest x-ray revealed findings suggestive of pneumonia for which the patient was given intravenous antibiotics. Patient appeared to be dry, so diuretics were discontinued and Mr. Conway was treated with intravenous fluids. Over the next 2 days, the patient developed elevated creatinine with multiple electrolyte abnormalities. At present, patient is normotensive, but remains in respiratory failure. He is on intravenous antibiotics presumably for pneumonia. The patient continues to have multiple electrolyte abnormalities, including hypernatremia. Both renal and hepatic dysfunction are present. During his first few days in the intensive care unit, Mr. Conway was intubated and sedated. However, all sedating medications were discontinued more than 72 hours ago. Despite this, the patient remains unresponsive. Due to the occurrence of cardiac arrest, there is concern for hypoxic/anoxic ischemic brain injury. Therefore, a neurology consultation has been placed. REVIEW OF SYSTEMS: Unable to obtain secondary to the patient being intubated and comatose. PAST MEDICAL HISTORY: Hypertension, hyperlipidemia, diabetes mellitus, coronary artery disease, diastolic congestive heart failure, atrial fibrillation on Xarelto, chronic obstructive pulmonary disease, obstructive sleep apnea, osteoarthritis, peripheral vascular disease, morbid obesity, sacral decubitus ulcer, anemia of chronic disease. PAST SURGICAL HISTORY: Not known. PAST HOSPITALIZATIONS: Not known. FAMILY MEDICAL HISTORY: Hypertension, diabetes mellitus. SOCIAL HISTORY: Mr. Conway is reported to be . He is a longterm resident. His morbid obesity and severe osteoarthritis have let to the patient being bedbound. Mr. Conway is retired. There is no reported current or prior tobacco, alcohol, or recreational drug use. HOME MEDICATIONS: Please see list of home medications available in the electronic medical records. HOSPITAL MEDICATIONS: Please see the list of hospital medications available in electronic medical record. ALLERGIES: NO KNOWN DRUG ALLERGIES. NO KNOWN FOOD ALLERGIES. NO KNOWN ALLERGIES TO LATEX. NO KNOWN ALLERGIES TO IODINE OR OTHER CONTRAST MATERIALS. PHYSICAL EXAMINATION: VITAL SIGNS: Height 67 inches, weight 378 pounds. BMI 59.2 kg per meter squared. Blood pressure 150/76 mmHg. Pulse 79 beats per minute. Respiratory rate 16 breaths per minute. Oxygen saturation 100% with ventilator settings as follows: Oxygen concentration of 50%, PEEP is 5 cm water. Respiratory rate 15 breaths per minute. Tidal volume of 500 mL GENERAL: The patient is intubated and comatose. Morbidly obese. HEENT: Normocephalic and atraumatic. Pupils are equal, round and sluggishly reactive to light. Moist mucous membranes. NECK: Supple. No appreciable thyromegaly. No appreciable carotid bruits. CARDIOVASCULAR: S1 and S2. Regular rate with irregular rhythm. No murmurs, rubs or gallops. RESPIRATORY: Coarse rhonchi throughout anteriorly. EXTREMITIES: The skin is warm and dry. No clubbing or cyanosis. Positive dependent edema over the hands and distal forearms. The posterior tibial and dorsalis pedis pulses are trace and symmetric. SKIN: No rashes or lesions. NEUROLOGIC: Memory/attention: The patient is intubated and comatose. He does not respond to verbal or noxious stimulation. CRANIAL NERVES: Pupils are 4 mm and sluggishly reactive to light. The face appears symmetric. Corneal, oculocephalic, and gag reflexes are intact. STRENGTH: Bulk is diminished throughout. There are no spontaneous movements in either arm or either leg. There is no withdrawal of any extremities to peripheral noxious stimulation. Tone is decreased throughout. DTRs: Deep tendon reflexes are absent and symmetric at the triceps, biceps, brachioradialis, patellas, and Achilles. Plantar responses are mute bilaterally. SENSATION: As per motor exam. CEREBELLAR: Unable to assess secondary to the patient being intubated and comatose. GAIT: Unable to assess secondary to the patient being intubated and comatose. SPEECH: Unable to assess secondary to the patient being intubated and comatose. INVOLUNTARY MOVEMENTS: None. PRONATOR DRIFT: As per motor exam. LABORATORY DATA: Patient's comprehensive metabolic panel is significant for a sodium of 151, carbon dioxide 39, BUN 55, and glucose 135. The total bilirubin is elevated at 1.8. AST and ALT are elevated at 45 and 159, respectively. Albumin is decreased at 2.4 and globulin is increased at 4.5. The CBC with differential and platelets reveals a mildly elevated white blood cell count 11.35 with 74.1% neutrophils, 6.3% lymphocytes, 11.6% monocytes, 7.2% eosinophils, and 0.4% basophils. The hemoglobin and hematocrit are 10.6 and 38.2, respectively. The platelet count is 209,000. A urine culture collected on June 06, 2018 grew Klebsiella pneumonia. A blood culture collected on June 06, 2018 showed no growth after 5 days. A 2nd blood culture collected on June 06, 2018 showed no growth after 5 days. A blood culture collected on June 07, 2018 showed no growth after 5 days. A sputum culture collected on June 07, 2018 grew MRSA, Staphylococcus aureus as well as Victoria albicans. A blood culture collected on June 07, 2018 showed no growth after 5 days. A urine culture collected on June 08, 2018 showed no growth after 36 to 48 hours. DIAGNOSTIC STUDIES: Echocardiogram 06/09/2018: Ejection fraction 60% to 65%. Concentric left ventricular hypertrophy. Left atrial enlargement. Trace mitral regurgitation. Mild tricuspid regurgitation. Electrocardiogram 06/12/2018: Sinus rhythm at 98 beats per minute with premature supraventricular complexes. Right bundle branch block. Chest x-ray 06/13/2018: No interval change. CT of the brain without contrast 06/13/2018: On my review, there is no evidence of recent large territorial ischemia, hemorrhage, mass or mass effect. Diffuse cerebral atrophy is noted, normal for patient age. There are findings compatible with mild chronic small vessel ischemic disease. ASSESSMENT AND PLAN: Mr. Conway is 72-year-old man with an extensive past medical history as detailed above. Hospitalized in intensive care unit with respiratory failure, probable MRSA pneumonia, renal dysfunction with multiple electrolyte abnormalities, hepatic dysfunction, and status post cardiac arrest. Despite discontinuation of all sedation more than72 hours ago, the patient remains comatose on neurological examination. Patient's laboratory data and other diagnostic studies have been reviewed and are documented above. It is possible the patient's multiple medical problems as detailed above are causing a severe metabolic encephalopathy. However, the occurrence of a cardiac arrest on June 07, 2018, raises concerns for an hypoxic/anoxic ischemic brain injury. RECOMMENDATIONS: 1. A MRI of the brain without contrast will be ordered to evaluate for hypoxic/anoxic ischemic brain injury. 2. Avoid sedative/hypnotic and pain medications as these will alter the patient's sensorium. 3. Defer treatment of the remaining medical comorbidities to primary and other services following the patient. Thank you for this consultation. I will continue to follow patient while he remains in the hospital. Time spent: 70 minutes. Job#: [id number] JIM ATKINS
[2018-06-14] VITALS (25 sets, daily range): BP systolic 114–167; BP diastolic 44–87
[2018-06-14] MEDS: FUROSEMIDE INJ 100 MG in SODIUM CHLORIDE 0.9% 100 ML 90 ML IV SCH ×3 (03:27→21:03)
[2018-06-14] MEDS: DEXTROSE 5% 1,000 ML IV SCH (03:28)
[2018-06-14 04:44] LABS: BASOPHILS % 0.3 % (0.0-1.0); EOSINOPHILS # (AUTO) 0.7 (0.0-0.4); EOSINOPHILS % 5.7 % (0.0-6.0); HEMATOCRIT 36.7 % (38.2-49.6); HEMOGLOBIN 10.6 g/dL (14.0-18.0); LYMPHOCYTES # (AUTO) 1.5 (1.0-3.2); LYMPHOCYTES % 13.1 % (18.0-39.1); MEAN CORPUSCULAR HEMOGLOBIN 24.4 pg (28-32); MEAN CORPUSCULAR HGB CONC 28.9 g/dL (31-35); MEAN CORPUSCULAR VOLUME 84.4 fL (81-99); MONOCYTES # (AUTO) 1.4 (0.2-0.8); NEUTROPHILS # (AUTO) 7.9 (2.1-6.9); NEUTROPHILS % 68.5 % (38.7-80.0); PLATELET COUNT 236 x10e3/uL (140-360); RED BLOOD COUNT 4.35 x10e6/uL (4.3-5.7); RED CELL DISTRIBUTION WIDTH 17.6 % (11.7-14.4)
[2018-06-14 05:11] LABS: ALANINE AMINOTRANSFERASE 113 IU/L (0-55); ALBUMIN 2.3 g/dL (3.5-5.0); ALBUMIN/GLOBULIN RATIO 0.5 (0.8-2.0); ALKALINE PHOSPHATASE 107 IU/L (40-150); ANION GAP 13.1 mmol/L (8-16); BLOOD UREA NITROGEN 59 mg/dL (7-26); BUN/CREATININE RATIO 62 (6-25); CALCIUM 10.1 mg/dL (8.4-10.2); CARBON DIOXIDE 40 mmol/L (22-29); CHLORIDE 96 mmol/L (98-107); CREATININE, SERUM 0.95 mg/dL (0.72-1.25); EST GLOMERULAR FILTRATION RATE > 60 ML/MIN (60-); GLUCOSE 155 mg/dL (74-118); POTASSIUM 3.1 mmol/L (3.5-5.1); SODIUM 146 mmol/L (136-145)
[2018-06-14] MEDS: PIPER-TAZ 3.375 GM 50 ML IV SCH ×3 (05:50→21:56)
[2018-06-14] MEDS: INSULIN LISPRO 100 UNIT/1 ML 3ML VIAL SQ SCH ×3 (05:51→19:13)
--- NOTE | 2018-06-14 06:40 | Diagnostic Imaging Report ---
EXAM: CHEST SINGLE (PORTABLE), AP 1 view INDICATION: Respiratory failure COMPARISON: AP view of the chest June 23, 2018 FINDINGS: LINES/TUBES: Stable lines and tubes LUNGS: Stable PLEURA: No effusions or pneumothorax. HEART AND MEDIASTINUM: Stable BONES AND SOFT TISSUES: No acute findings. IMPRESSION: No interval change Signed by: Dr. Allegra Rodriguez M.D. on 06/14/2018 6:36 AM
[2018-06-14 06:58] LABS: EOSINOPHILS % (MANUAL) 3 % (0-7); HYPERSEGMENTED NEUTROPHILS FEW; HYPOCHROMASIA SLIGHT; LYMPHOCYTES % (MANUAL) 9 % (19-48); MONOCYTES % (MANUAL) 5 % (3.4-9.0); NEUTROPHILS % (MANUAL) 82 % (40-74)
[2018-06-14] MEDS ORDERED: POTASSIUM CHLORIDE 20MEQ/100ML 200 ML IV ONE (08:15)
[2018-06-14] MEDS ORDERED: POTASSIUM CHLORIDE 20MEQ/15ML UDC NG SCH ×2 (08:15→08:30)
[2018-06-14] MEDS: PANTOPRAZOLE SOD 40 MG TABEC PO SCH (09:00)
[2018-06-14] MEDS: GLIMEPIRIDE 2 MG TAB PO SCH ×2 (09:46→18:44)
[2018-06-14] MEDS: NYSTATIN 15 GM POWDER UD BTL TOP SCH (09:47)
[2018-06-14] MEDS: PYRIDOXINE HCL 50 MG TAB PEG SCH (09:47)
[2018-06-14] MEDS: FOLIC ACID 1 MG TAB PO SCH (09:47)
[2018-06-14] MEDS: BALSAM PERU/CASTOR OIL 60 GM OINT...G. TP SCH (09:47)
[2018-06-14] MEDS: FAMOTIDINE 20 MG/2 ML VIAL IV SCH ×2 (09:47→18:44)
[2018-06-14] MEDS: FERROUS SULFATE 325 MG TAB PO SCH ×2 (09:47→18:44)
[2018-06-14] MEDS: CHLORTHALIDONE 25 MG TAB PO SCH (09:48)
[2018-06-14] MEDS: METOPROLOL TARTRATE 25 MG TAB PO SCH ×2 (09:49→18:44)
[2018-06-14] MEDS ORDERED: POTASSIUM CHLORIDE 10MEQ EA NG SCH ×2 (10:15)
[2018-06-14] MEDS: VANCOMYCIN HCL 1.5 GM in SODIUM CHLORIDE 0.9% 250ML 300 ML IV SCH (14:00)
--- NOTE | 2018-06-14 15:56 | Progress Note ---
DATE: June 14, 2018 PULMONARY/CRITICAL CARE PROGRESS NOTE The patient is still on assist control mode of ventilation. He was seen by neurology. An MRI is pending. PHYSICAL EXAMINATION VITALS: The patient is afebrile. His blood pressure is 145/44, and his respiratory rate is 16. His pulse is 101, and his temperature is normal. GENERAL: He is responding a little more to noxious stimuli but still does not have purposeful movement. He currently has an oral endotracheal tube in place. LYMPHATIC: No submandibular, cervical or supraclavicular adenopathy. CARDIAC: Regular rate and rhythm with normal S1 and S2. There are no murmurs or rubs. LUNGS: Auscultation of the lungs reveals rhonchorous breath sounds bilaterally. There is no wheezing. ABDOMEN: Soft and nontender. There is no rebound or guarding. EXTREMITIES: No leg edema or calf tenderness. There is no cyanosis or clubbing. LABORATORY DATA: Sodium is 146, and the potassium is 3.1. The FFC-kv-dminkvknph ratio is 59:0.95. The blood sugar is 150 to 250. The white blood cell count is 11.5, and hemoglobin is 10.6. The platelet count is 236. RADIOGRAPHIC DATA: Chest x-ray shows no acute findings. IMPRESSION 1. Anoxic brain injury following cardiopulmonary arrest. 2. Acute respiratory failure. 3. Methicillin-resistant Staphylococcus aureus tracheobronchitis. 4. Acute kidney injury. 5. Hypernatremia. 6. Chronic respiratory acidosis with superimposed metabolic alkalosis. PLAN 1. Patient will continue assessment for anoxic brain injury including neurological evaluation and MRI. 2. Repeat blood gas. 3. Increase free water. 4. Continue enteral feedings. 5. Consider limiting Lasix to prevent worsening metabolic alkalosis and substituting Diamox. 6. Monitor blood sugars. 7. Continue Xarelto and treatment for atrial fibrillation. 8. Overall prognosis remains poor. 9. Case discussed with son and nursing staff. Job#: [id number]
[2018-06-14 16:37] LABS: ABG HCO3 45 mmol/L (23-28); ABG PCO2 67 mmHg (41-51); ABG PH 7.43 (7.31-7.41); ABG PO2 107 mmHg (80-105)
[2018-06-14] MEDS: INSULIN DETEMIR 100 UNIT/ML PEN SQ SCH (21:20)
[2018-06-15] VITALS (34 sets, daily range): BP systolic 117–168; BP diastolic 48–119
[2018-06-15] MEDS: INSULIN LISPRO 100 UNIT/1 ML 3ML VIAL SQ SCH ×4 (00:15→18:54)
[2018-06-15] MEDS ORDERED: SODIUM CHLORIDE 0.9% 250ML 250 ML ONE (05:11)
[2018-06-15 05:46] LABS: ALANINE AMINOTRANSFERASE 87 IU/L (0-55); ALBUMIN 2.3 g/dL (3.5-5.0); ALBUMIN/GLOBULIN RATIO 0.5 (0.8-2.0); ALKALINE PHOSPHATASE 135 IU/L (40-150); ANION GAP 13.5 mmol/L (8-16); BLOOD UREA NITROGEN 60 mg/dL (7-26); BUN/CREATININE RATIO 71 (6-25); CALCIUM 10.4 mg/dL (8.4-10.2); CHLORIDE 90 mmol/L (98-107); CREATININE, SERUM 0.85 mg/dL (0.72-1.25); EST GLOMERULAR FILTRATION RATE > 60 ML/MIN (60-); GLUCOSE 146 mg/dL (74-118); POTASSIUM 3.5 mmol/L (3.5-5.1); SODIUM 142 mmol/L (136-145)
[2018-06-15 05:50] LABS: CARBON DIOXIDE 42 mmol/L (22-29)
[2018-06-15 06:03] LABS: MAGNESIUM 1.8 MG/DL (1.3-2.1); PHOSPHORUS 2.8 MG/DL (2.3-4.7)
[2018-06-15] MEDS: PIPER-TAZ 3.375 GM 50 ML IV SCH ×3 (06:03→22:08)
[2018-06-15 06:31] LABS: BASOPHILS % 0.4 % (0.0-1.0); EOSINOPHILS % 9.5 % (0.0-6.0); HEMATOCRIT 36.1 % (38.2-49.6); HEMOGLOBIN 10.7 g/dL (14.0-18.0); LYMPHOCYTES # (AUTO) 1.7 (1.0-3.2); LYMPHOCYTES % 17.4 % (18.0-39.1); MEAN CORPUSCULAR HEMOGLOBIN 24.3 pg (28-32); MEAN CORPUSCULAR HGB CONC 29.6 g/dL (31-35); MONOCYTES # (AUTO) 1.3 (0.2-0.8); NEUTROPHILS # (AUTO) 5.9 (2.1-6.9); NEUTROPHILS % 59.2 % (38.7-80.0); PLATELET COUNT 228 x10e3/uL (140-360); RED CELL DISTRIBUTION WIDTH 17.5 % (11.7-14.4)
--- NOTE | 2018-06-15 07:28 | Diagnostic Imaging Report ---
Examination: Single AP view of the chest. COMPARISON: 06/14/2018 INDICATION: Respiratory failure DISCUSSION: Endotracheal tube, enteric tube, and left internal jugular central venous catheter are unchanged in position. Lung volumes remain low with linear opacity in the left lower lobe likely subsegmental atelectasis. No new consolidation. Stable cardiomediastinal contour and pulmonary venous congestion. IMPRESSION: Stable radiographic appearance of the chest relative to 06/14/2018. Signed by: Dr. Alexsander Cheung M.D. on 06/15/2018 7:25 AM
[2018-06-15] MEDS: FUROSEMIDE INJ 100 MG in SODIUM CHLORIDE 0.9% 100 ML 90 ML IV SCH (08:00)
[2018-06-15] MEDS: PANTOPRAZOLE SOD 40 MG TABEC PO SCH (09:00)
[2018-06-15] MEDS: ACETAZOLAMIDE 250 MG TAB PO SCH ×3 (10:10→21:31)
[2018-06-15] MEDS: CHLORTHALIDONE 25 MG TAB PO SCH (10:10)
[2018-06-15] MEDS: GLIMEPIRIDE 2 MG TAB PO SCH ×2 (10:10→17:24)
[2018-06-15] MEDS: FAMOTIDINE 20 MG/2 ML VIAL IV SCH ×2 (10:10→17:24)
[2018-06-15] MEDS: PYRIDOXINE HCL 50 MG TAB PEG SCH (10:10)
[2018-06-15] MEDS: METOPROLOL TARTRATE 25 MG TAB PO SCH ×2 (10:10→17:24)
[2018-06-15] MEDS: FOLIC ACID 1 MG TAB PO SCH (10:10)
[2018-06-15] MEDS: BALSAM PERU/CASTOR OIL 60 GM OINT...G. TP SCH (10:10)
[2018-06-15] MEDS: FERROUS SULFATE 325 MG TAB PO SCH ×2 (10:10→17:24)
[2018-06-15] MEDS: HYDRALAZINE HCL 20 MG/ML VIAL IV PRN (10:18)
[2018-06-15] MEDS: FUROSEMIDE INJ 10 MG/ML 4 ML VIAL IV SCH ×2 (10:22→17:24)
[2018-06-15] MEDS ORDERED: POTASSIUM CHLORIDE 20MEQ/100ML 200 ML IV ONE (13:15)
[2018-06-15] MEDS ORDERED: POTASSIUM CHLORIDE 10MEQ/100ML 0 ML ONE (13:18)
--- NOTE | 2018-06-15 16:36 | Electroencephalogram ---
DATE OF STUDY: June 15, 2018 REQUESTING PHYSICIAN: Dr. Shauna Mcarthur. PATIENT HISTORY: This 72-year-old man with history of minimal responsiveness is having an EEG for evaluation of epileptiform activity. The patient is not taking any medicines that might affect the EEG. TECHNIQUE: This is a routine, portable EEG, recorded digitally using the International 10-20 Electrode Placement System and done in the inpatient setting with the patient minimally responsive. The EEG is technically limited because of muscle and electrical artefact. DESCRIPTION: Well-organized, well-sustained, 5-6 Hz activity is best seen symmetrically over the posterior head regions. No focal or epileptiform activity is recorded. Sleep is not recorded. Photic stimulation does produce a driving response. Hyperventilation is not performed. INTERPRETATION: This is an abnormal electroencephalogram with the patient awake due to the presence of diffuse slowing of the background electrocortical activity compatible with moderate generalized encephalopathy. No epileptiform discharges are seen. Clinical correlation is recommended. Job#: [id number] EV MTDGeno
[2018-06-15] MEDS: INSULIN DETEMIR 100 UNIT/ML PEN SQ SCH (21:30)
[2018-06-16] VITALS (33 sets, daily range): BP systolic 119–170; BP diastolic 48–83
[2018-06-16] MEDS: INSULIN LISPRO 100 UNIT/1 ML 3ML VIAL SQ SCH ×4 (00:07→18:26)
[2018-06-16] MEDS ORDERED: VANCOMYCIN HCL 1.5 GM in SODIUM CHLORIDE 0.9% 250ML 300 ML IV SCH (02:00)
[2018-06-16 04:13] LABS: BASOPHILS # (AUTO) 0.1 (0.0-0.1); BASOPHILS % 0.4 % (0.0-1.0); EOSINOPHILS # (AUTO) 0.7 (0.0-0.4); EOSINOPHILS % 5.6 % (0.0-6.0); HEMOGLOBIN 10.6 g/dL (14.0-18.0); LYMPHOCYTES # (AUTO) 1.8 (1.0-3.2); LYMPHOCYTES % 15.4 % (18.0-39.1); MEAN CORPUSCULAR HEMOGLOBIN 24.4 pg (28-32); MEAN CORPUSCULAR HGB CONC 29.4 g/dL (31-35); MEAN CORPUSCULAR VOLUME 82.8 fL (81-99); MONOCYTES # (AUTO) 1.4 (0.2-0.8); MONOCYTES % 11.9 % (4.4-11.3); NEUTROPHILS # (AUTO) 7.8 (2.1-6.9); NEUTROPHILS % 66.1 % (38.7-80.0); PLATELET COUNT 270 x10e3/uL (140-360); RED BLOOD COUNT 4.35 x10e6/uL (4.3-5.7); RED CELL DISTRIBUTION WIDTH 17.5 % (11.7-14.4)
[2018-06-16 04:38] LABS: ALANINE AMINOTRANSFERASE 75 IU/L (0-55); ALBUMIN 2.2 g/dL (3.5-5.0); ALBUMIN/GLOBULIN RATIO 0.5 (0.8-2.0); ALKALINE PHOSPHATASE 133 IU/L (40-150); ANION GAP 14.3 mmol/L (8-16); BLOOD UREA NITROGEN 57 mg/dL (7-26); BUN/CREATININE RATIO 63 (6-25); CALCIUM 10.3 mg/dL (8.4-10.2); CARBON DIOXIDE 40 mmol/L (22-29); CHLORIDE 91 mmol/L (98-107); EST GLOMERULAR FILTRATION RATE > 60 ML/MIN (60-); GLUCOSE 162 mg/dL (74-118); POTASSIUM 3.3 mmol/L (3.5-5.1); SODIUM 142 mmol/L (136-145)
[2018-06-16] MEDS: PIPER-TAZ 3.375 GM 50 ML IV SCH (05:42)
[2018-06-16] MEDS: IPRATROPIUM BROMIDE 0.02% 2.5 ML NEB NEB PRN ×3 (07:28→19:17)
[2018-06-16] MEDS: ALBUTEROL SULF 0.083% NEB SOLN 3 ML NEB INH PRN ×3 (07:28→19:22)
[2018-06-16] MEDS ORDERED: POTASSIUM CHLORIDE 20MEQ/100ML 200 ML IV ONE (08:30)
[2018-06-16] MEDS: METOPROLOL TARTRATE 25 MG TAB PO SCH ×2 (09:45→16:38)
[2018-06-16] MEDS: FERROUS SULFATE 325 MG TAB PO SCH ×2 (09:45→16:38)
[2018-06-16] MEDS: FOLIC ACID 1 MG TAB PO SCH (09:45)
[2018-06-16] MEDS: PYRIDOXINE HCL 50 MG TAB PEG SCH (09:45)
[2018-06-16] MEDS: GLIMEPIRIDE 2 MG TAB PO SCH ×2 (09:45→16:38)
[2018-06-16] MEDS: PANTOPRAZOLE SOD 40 MG TABEC PO SCH (09:45)
[2018-06-16] MEDS: CHLORTHALIDONE 25 MG TAB PO SCH (09:45)
[2018-06-16] MEDS: FUROSEMIDE INJ 10 MG/ML 4 ML VIAL IV SCH ×2 (09:45→16:38)
[2018-06-16] MEDS: ACETAZOLAMIDE 250 MG TAB PO SCH ×3 (09:45→20:36)
[2018-06-16] MEDS: BALSAM PERU/CASTOR OIL 60 GM OINT...G. TP SCH (10:43)
[2018-06-16] MEDS: FAMOTIDINE 20 MG/2 ML VIAL IV SCH ×2 (10:47→16:38)
[2018-06-16 13:46] LABS: ABG HCO3 44 mmol/L (23-28); ABG PCO2 60 mmHg (41-51); ABG PH 7.47 (7.31-7.41); ABG PO2 155 mmHg (80-105)
[2018-06-16] MEDS: ACETAMINOPHEN 325 MG TAB PO PRN (17:35)
[2018-06-16] MEDS: INSULIN DETEMIR 100 UNIT/ML PEN SQ SCH (20:38)
[2018-06-17] VITALS (49 sets, daily range): BP systolic 123–171; BP diastolic 44–122
[2018-06-17] MEDS: INSULIN LISPRO 100 UNIT/1 ML 3ML VIAL SQ SCH ×5 (00:24→23:35)
[2018-06-17] MEDS: VANCOMYCIN HCL 1.5 GM in SODIUM CHLORIDE 0.9% 250ML 300 ML IV SCH (03:00)
[2018-06-17 04:41] LABS: BASOPHILS # (AUTO) 0.1 (0.0-0.1); BASOPHILS % 0.5 % (0.0-1.0); EOSINOPHILS # (AUTO) 0.8 (0.0-0.4); EOSINOPHILS % 6.1 % (0.0-6.0); HEMATOCRIT 35.4 % (38.2-49.6); HEMOGLOBIN 10.6 g/dL (14.0-18.0); LYMPHOCYTES # (AUTO) 1.8 (1.0-3.2); LYMPHOCYTES % 13.8 % (18.0-39.1); MEAN CORPUSCULAR HEMOGLOBIN 24.2 pg (28-32); MEAN CORPUSCULAR HGB CONC 29.9 g/dL (31-35); MEAN CORPUSCULAR VOLUME 80.8 fL (81-99); MONOCYTES # (AUTO) 1.5 (0.2-0.8); MONOCYTES % 11.3 % (4.4-11.3); NEUTROPHILS # (AUTO) 8.9 (2.1-6.9); NEUTROPHILS % 67.6 % (38.7-80.0); PLATELET COUNT 317 x10e3/uL (140-360); RED BLOOD COUNT 4.38 x10e6/uL (4.3-5.7); RED CELL DISTRIBUTION WIDTH 17.9 % (11.7-14.4)
[2018-06-17 05:04] LABS: ALANINE AMINOTRANSFERASE 82 IU/L (0-55); ALBUMIN 2.2 g/dL (3.5-5.0); ALBUMIN/GLOBULIN RATIO 0.5 (0.8-2.0); ALKALINE PHOSPHATASE 145 IU/L (40-150); ANION GAP 16.3 mmol/L (8-16); BLOOD UREA NITROGEN 59 mg/dL (7-26); BUN/CREATININE RATIO 68 (6-25); CALCIUM 10.3 mg/dL (8.4-10.2); CARBON DIOXIDE 35 mmol/L (22-29); CHLORIDE 93 mmol/L (98-107); CREATININE, SERUM 0.87 mg/dL (0.72-1.25); EST GLOMERULAR FILTRATION RATE > 60 ML/MIN (60-); GLUCOSE 198 mg/dL (74-118); POTASSIUM 3.3 mmol/L (3.5-5.1); SODIUM 141 mmol/L (136-145)
--- NOTE | 2018-06-17 07:29 | Diagnostic Imaging Report ---
EXAMINATION: CHEST SINGLE (PORTABLE) INDICATION: \S\Resp Failure \[id number] \S\[id number] COMPARISON: 06/15/2018 FINDINGS: AP view TUBES and LINES: Stable endotracheal and nasogastric tubes. Stable left internal jugular central line. LUNGS: Low lung volumes. Unchanged central vascular congestion and mild left basilar opacification. PLEURA: No significant pleural effusion or pneumothorax. HEART AND MEDIASTINUM: The cardiac silhouette is enlarged. BONES AND SOFT TISSUES: No acute osseous lesion. Soft tissues are unremarkable. UPPER ABDOMEN: No free air under the diaphragm. IMPRESSION: Unchanged mild left basilar opacification, representing atelectasis or small effusion. Underlying pneumonia cannot be entirely excluded. Signed by: Dr. Lior Alan MD on 06/17/2018 7:26 AM
[2018-06-17] MEDS: BALSAM PERU/CASTOR OIL 60 GM OINT...G. TP SCH (08:30)
[2018-06-17] MEDS: FERROUS SULFATE 325 MG TAB PO SCH ×2 (08:30→16:00)
[2018-06-17] MEDS: PANTOPRAZOLE SOD 40 MG TABEC PO SCH (08:30)
[2018-06-17] MEDS: GLIMEPIRIDE 2 MG TAB PO SCH ×2 (08:30→16:00)
[2018-06-17] MEDS: FOLIC ACID 1 MG TAB PO SCH (08:30)
[2018-06-17] MEDS: ACETAMINOPHEN 325 MG TAB PO PRN (08:30)
[2018-06-17] MEDS: CHLORTHALIDONE 25 MG TAB PO SCH (08:30)
[2018-06-17] MEDS: PYRIDOXINE HCL 50 MG TAB PEG SCH (08:30)
[2018-06-17] MEDS: ACETAZOLAMIDE 250 MG TAB PO SCH ×3 (08:30→21:05)
[2018-06-17] MEDS: FAMOTIDINE 20 MG/2 ML VIAL IV SCH ×2 (08:30→16:00)
[2018-06-17] MEDS: METOPROLOL TARTRATE 25 MG TAB PO SCH ×2 (08:30→16:00)
[2018-06-17] MEDS: FUROSEMIDE INJ 10 MG/ML 4 ML VIAL IV SCH ×2 (09:00→16:00)
[2018-06-17] MEDS ORDERED: POTASSIUM CHLORIDE 20 MEQ TAB CR PO ONE (13:00)
[2018-06-17] MEDS: PIPERACILLIN/TAZOBAC 3.375 GM in SODIUM CHLORIDE 0.9% 100 ML IV SCH ×2 (15:00→23:25)
[2018-06-17 15:42] LABS: CLARITY,URINE CLEAR (CLEAR); COLOR,URINE YELLOW (YELLOW); LEUKOCYTE ESTERASE ,URINE NEGATIVE (NEGATIVE); NITRITE,URINE NEGATIVE (NEGATIVE)
[2018-06-17 15:43] LABS: BILIRUBIN,URINE NEGATIVE (NEGATIVE); KETONES,URINE NEGATIVE (NEGATIVE); PROTEIN,URINE DIPSTICK NEGATIVE (NEGATIVE); URINE UROBILINOGEN 8 mg/dL (0.2 - 1)
[2018-06-17 16:07] LABS: MUCUS,URINE RARE (RARE)
--- NOTE | 2018-06-17 16:14 | Progress Note ---
DATE: June 17, 2018 PULMONARY MEDICINE PROGRESS NOTE SUBJECTIVE: Mr. Conway was seen and examined at bedside. Patient remains quite encephalopathic. He is on no sedation medications. He will eye open and grimace in response to pain. A few transient flicks of his finger may be seen in response to pain but there is no significant proximal arm strength or movement. His arms remain unrestrained despite being off sedation. He is on feeds at 55 mL per hour and water at 200 mL q.6 hours. REVIEW OF SYSTEMS: Cannot get as he is intubated. OBJECTIVE VITAL SIGNS: Afebrile. Vital signs noted per electronic record. GENERAL: In no acute distress, alert and calm. HEENT: Normocephalic, atraumatic. NECK: Supple. Throat midline. LUNGS: Bilateral air entry, few rhonchi and few upper airways oral secretions sounding. CARDIOVASCULAR: S1 and S2. No murmurs, rubs, or gallops. ABDOMEN: Soft, nontender. EXTREMITIES: No clubbing or cyanosis. There is 1+ to 2+ edema. INTEGUMENT: No rash. No purpura. LABS: Potassium 3.3, BUN 59, creatinine 0.3. White count 13, hematocrit 35, platelets 319, INR 1.69. IMPRESSION 1. Acute respiratory failure. 2. Encephalopathy, multifactorial. 3. Obesity. 4. Critical care polyneuropathy. 5. Weakness, multifactorial. 6. Pneumonia. 7. Fluid overload, possible on admit, although seems less likely. 8. Status post cardiac arrest. PLAN: At this time, Mr. Conway will continue care in the ICU. Patient remains on ventilator, intubated. We will discuss with the stepson regarding tracheostomy needs. I discussed with his son and he will think about it. Patient, as of now, has not been diagnosed with irreversible anoxic ischemic brain damage from the cardiac arrest. Continue to withhold neurotoxic medications and allow better prognostication with time. Continue oral and respiratory care and suction. Antibiotics per ID expert. Job#: [id number] LPA
[2018-06-17 16:17] LABS: RENAL EPITHELIAL CELLS,URINE FEW
[2018-06-17] MEDS: INSULIN DETEMIR 100 UNIT/ML PEN SQ SCH (21:08)
[2018-06-18] VITALS (48 sets, daily range): BP systolic 121–199; BP diastolic 52–115
[2018-06-18] MEDS: ACETAMINOPHEN 325 MG TAB PO PRN ×2 (04:01→17:50)
[2018-06-18 04:41] LABS: BASOPHILS # (AUTO) 0.1 (0.0-0.1); BASOPHILS % 0.5 % (0.0-1.0); EOSINOPHILS # (AUTO) 0.7 (0.0-0.4); EOSINOPHILS % 5.2 % (0.0-6.0); HEMATOCRIT 36.6 % (38.2-49.6); HEMOGLOBIN 10.8 g/dL (14.0-18.0); LYMPHOCYTES % 14.2 % (18.0-39.1); MEAN CORPUSCULAR HEMOGLOBIN 24.2 pg (28-32); MEAN CORPUSCULAR HGB CONC 29.5 g/dL (31-35); MEAN CORPUSCULAR VOLUME 82.1 fL (81-99); MONOCYTES # (AUTO) 1.5 (0.2-0.8); MONOCYTES % 10.3 % (4.4-11.3); NEUTROPHILS # (AUTO) 9.7 (2.1-6.9); PLATELET COUNT 333 x10e3/uL (140-360); RED BLOOD COUNT 4.46 x10e6/uL (4.3-5.7); RED CELL DISTRIBUTION WIDTH 18.1 % (11.7-14.4)
[2018-06-18 05:09] LABS: ALANINE AMINOTRANSFERASE 99 IU/L (0-55); ALBUMIN 2.2 g/dL (3.5-5.0); ALBUMIN/GLOBULIN RATIO 0.4 (0.8-2.0); ALKALINE PHOSPHATASE 165 IU/L (40-150); ANION GAP 16.3 mmol/L (8-16); BLOOD UREA NITROGEN 61 mg/dL (7-26); BUN/CREATININE RATIO 66 (6-25); CALCIUM 10.2 mg/dL (8.4-10.2); CARBON DIOXIDE 33 mmol/L (22-29); CHLORIDE 99 mmol/L (98-107); CREATININE, SERUM 0.93 mg/dL (0.72-1.25); EST GLOMERULAR FILTRATION RATE > 60 ML/MIN (60-); GLUCOSE 222 mg/dL (74-118); PHOSPHORUS 3.6 MG/DL (2.3-4.7); POTASSIUM 3.3 mmol/L (3.5-5.1); SODIUM 145 mmol/L (136-145)
[2018-06-18] MEDS: INSULIN LISPRO 100 UNIT/1 ML 3ML VIAL SQ SCH ×3 (05:24→18:02)
[2018-06-18] MEDS: PIPERACILLIN/TAZOBAC 3.375 GM in SODIUM CHLORIDE 0.9% 100 ML IV SCH ×3 (07:00→23:00)
--- NOTE | 2018-06-18 07:27 | Diagnostic Imaging Report ---
EXAM: XR CHEST 1 VIEW DATE: 06/18/2018 5:00 AM INDICATION: CHF COMPARISON: 06/17/2018, no report available FINDINGS: Lines and Tubes: ET tube tip above jayleen. NG tube courses past GE junction. Left IJ catheter tip overlying SVC. Heart and Mediastinum: No acute cardiomediastinal findings. Lungs and Pleura: Mild bilateral airspace opacities are present which could represent edema and/or pneumonia. Bones and Soft Tissues: No acute findings. IMPRESSION: 1. No significant interval change. Signed by: Dr. Arun Bey MD on 06/18/2018 7:24 AM
[2018-06-18] MEDS: GLIMEPIRIDE 2 MG TAB PO SCH ×2 (08:00→17:50)
[2018-06-18] MEDS: ACETAZOLAMIDE 250 MG TAB PO SCH ×3 (09:00→21:20)
[2018-06-18] MEDS: FAMOTIDINE 20 MG/2 ML VIAL IV SCH ×2 (09:00→17:46)
[2018-06-18] MEDS: METOPROLOL TARTRATE 25 MG TAB PO SCH ×2 (09:00→17:46)
[2018-06-18] MEDS: CHLORTHALIDONE 25 MG TAB PO SCH (09:00)
[2018-06-18] MEDS: PYRIDOXINE HCL 50 MG TAB PEG SCH (09:00)
[2018-06-18] MEDS: FUROSEMIDE INJ 10 MG/ML 4 ML VIAL IV SCH ×2 (09:00→17:46)
[2018-06-18] MEDS: FOLIC ACID 1 MG TAB PO SCH (09:00)
[2018-06-18] MEDS: PANTOPRAZOLE SOD 40 MG TABEC PO SCH (09:00)
[2018-06-18] MEDS: FERROUS SULFATE 325 MG TAB PO SCH ×2 (09:00→17:46)
[2018-06-18] MEDS ORDERED: SODIUM CHLORIDE 0.9% 250ML 250 ML ONE (09:49)
[2018-06-18] MEDS: BALSAM PERU/CASTOR OIL 60 GM OINT...G. TP SCH (10:22)
[2018-06-18] MEDS: POTASSIUM CHLORIDE 20MEQ/15ML UDC NG SCH (10:23)
[2018-06-18] MEDS: VANCOMYCIN HCL 1.5 GM in SODIUM CHLORIDE 0.9% 250ML 300 ML IV SCH (15:30)
--- NOTE | 2018-06-18 16:38 | Progress Note ---
DATE: June 18, 2018 PULMONARY MEDICINE PROGRESS NOTE SUBJECTIVE: Mr. Conway was seen and examined at bedside. He continues to have very slow progress. He is still quite encephalopathic. For the most part, he mainly will grimace only on the face, not to stimuli and will withdrawal legs slightly. He is intubated on the ventilator. Webb in place with good urine output. He is tolerating feeds and water. REVIEW OF SYSTEMS: Cannot get as he is encephalopathic. OBJECTIVE VITAL SIGNS: Afebrile. Current vital signs noted per electronic record. GENERAL: In no acute distress, not alert, basically obtunded and comatose on ventilator. HEENT: Normocephalic, atraumatic. NECK: Supple. Throat midline. LUNGS: Bilateral air entry, few rhonchi, okay air entry. CARDIOVASCULAR: S1 and S2. No murmurs, rubs, or gallops. ABDOMEN: Soft, nontender. EXTREMITIES: No clubbing, no cyanosis. There is 1+ to 2+ edema, shriveled skin on the legs. INTEGUMENT: No rash. No purpura. LABS: Potassium 3.3, BUN 61, creatinine 0.9. White count 14, hematocrit 37, platelets 333. INR 1.69. Chest x-ray demonstrate mild bilateral airspace opacity and edema. IMPRESSION 1. Acute respiratory failure, intubated. 2. Encephalopathy, multifactorial. 3. Status post cardiac arrest, normal head CT post arrest. 4. Pneumonia. 5. Fluid overload. 6. Mild acute kidney injury, resolved. 7. Obesity, morbid. 8. Critical care polyneuropathy PLAN: At this time, we will continue current treatment. We will wait order regarding tracheostomy, which is recommended if family wants to continue treatment. Give some potassium today. Continue ventilator support. Antibiotics noted to be continued. We appreciate infectious disease expert help. We will continue to follow along closely. Job#: [id number] MULU
[2018-06-18] MEDS: INSULIN DETEMIR 100 UNIT/ML PEN SQ SCH (21:21)
[2018-06-18] MEDS: HYDRALAZINE HCL 20 MG/ML VIAL IV PRN (22:45)
[2018-06-19] VITALS (47 sets, daily range): BP systolic 125–170; BP diastolic 52–89
[2018-06-19] MEDS: ACETAMINOPHEN 325 MG TAB PO PRN (00:17)
[2018-06-19] MEDS: INSULIN LISPRO 100 UNIT/1 ML 3ML VIAL SQ SCH ×5 (00:27→23:33)
--- NOTE | 2018-06-19 03:15 | Progress Note ---
DATE: June 19, 2018 PULMONARY MEDICINE PROGRESS NOTE SUBJECTIVE: Mr. Conway was seen and examined at bedside. He continues to be encephalopathic. He has partial awareness and seems to try to turn towards voices and sounds upon re-prompting. Patient on repetitive prompting cannot move his extremities. Patient remains intubated on ventilator. He retains good urine output. He has low-grade fevers. No change in hemodynamics. REVIEW OF SYSTEMS: Cannot get as he is intubated. OBJECTIVE: VITAL SIGNS: Afebrile, vital signs noted per electronic record. GENERAL: In no acute distress. He is very lethargic to obtunded. On ventilator. HEENT: Normocephalic, atraumatic. NECK: Supple. Throat midline. LUNGS: Bilateral air entry, few rhonchi. CARDIOVASCULAR: S1, S2. No murmurs, rubs, or gallops. ABDOMEN: Soft, nontender. EXTREMITIES: No clubbing, no cyanosis, there is 1+ to 2+ leg edema. INTEGUMENT: No rash, no purpura. LABS: Labs are pending. IMPRESSIONS AND PLAN: 1. Acute respiratory failure, intubated. 2. Encephalopathy, multifactorial. Toxic metabolic encephalopathy plus or minus other. Rule out anoxic ischemic damage. 3. Acute kidney injury, resolved. 4. Pneumonia. 5. Urinary tract infection. 6. Shock, resolved. Continue current treatment at this time. Continue ventilator support. Will consider changing him to SIMV mode based on what the family's conversation is. We do recommend tracheostomy if they want to continue aggressive care. He should be referred for PEG tube if they want aggressive care as well. Continue care and try to prevent skin breakdown. Job#: [id number]
[2018-06-19 05:05] LABS: BASOPHILS # (AUTO) 0.1 (0.0-0.1); BASOPHILS % 0.5 % (0.0-1.0); EOSINOPHILS # (AUTO) 0.8 (0.0-0.4); EOSINOPHILS % 5.3 % (0.0-6.0); HEMATOCRIT 36.1 % (38.2-49.6); HEMOGLOBIN 10.9 g/dL (14.0-18.0); LYMPHOCYTES # (AUTO) 1.8 (1.0-3.2); LYMPHOCYTES % 12.1 % (18.0-39.1); MEAN CORPUSCULAR HEMOGLOBIN 24.7 pg (28-32); MEAN CORPUSCULAR HGB CONC 30.2 g/dL (31-35); MEAN CORPUSCULAR VOLUME 81.7 fL (81-99); MONOCYTES # (AUTO) 1.6 (0.2-0.8); MONOCYTES % 10.5 % (4.4-11.3); NEUTROPHILS # (AUTO) 10.5 (2.1-6.9); NEUTROPHILS % 70.7 % (38.7-80.0); PLATELET COUNT 357 x10e3/uL (140-360); RED BLOOD COUNT 4.42 x10e6/uL (4.3-5.7); RED CELL DISTRIBUTION WIDTH 18.6 % (11.7-14.4)
[2018-06-19 05:36] LABS: ALANINE AMINOTRANSFERASE 113 IU/L (0-55); ALBUMIN 2.2 g/dL (3.5-5.0); ALBUMIN/GLOBULIN RATIO 0.4 (0.8-2.0); ALKALINE PHOSPHATASE 159 IU/L (40-150); ANION GAP 16.9 mmol/L (8-16); BLOOD UREA NITROGEN 67 mg/dL (7-26); BUN/CREATININE RATIO 66 (6-25); CARBON DIOXIDE 32 mmol/L (22-29); CHLORIDE 100 mmol/L (98-107); CREATININE, SERUM 1.01 mg/dL (0.72-1.25); EST GLOMERULAR FILTRATION RATE > 60 ML/MIN (60-); GLUCOSE 194 mg/dL (74-118); SODIUM 146 mmol/L (136-145)
[2018-06-19 05:40] LABS: POTASSIUM 2.9 mmol/L (3.5-5.1)
[2018-06-19] MEDS: ALBUTEROL SULF 0.083% NEB SOLN 3 ML NEB INH PRN ×2 (07:24→19:18)
[2018-06-19] MEDS: IPRATROPIUM BROMIDE 0.02% 2.5 ML NEB NEB PRN ×2 (07:24→19:18)
[2018-06-19] MEDS ORDERED: POTASSIUM CHLORIDE 20MEQ/100ML 300 ML IV ONE (07:30)
[2018-06-19 07:38] LABS: PHOSPHORUS 3.9 MG/DL (2.3-4.7)
[2018-06-19] MEDS: PIPERACILLIN/TAZOBAC 3.375 GM in SODIUM CHLORIDE 0.9% 100 ML IV SCH ×3 (08:40→22:37)
[2018-06-19] MEDS: PANTOPRAZOLE SOD 40 MG TABEC PO SCH (09:00)
[2018-06-19] MEDS: POTASSIUM CHLORIDE 20MEQ/15ML UDC NG SCH ×2 (09:00→16:55)
[2018-06-19] MEDS: PYRIDOXINE HCL 50 MG TAB PEG SCH (09:58)
[2018-06-19] MEDS: FAMOTIDINE 20 MG/2 ML VIAL IV SCH ×2 (09:58→16:55)
[2018-06-19] MEDS: ACETAZOLAMIDE 250 MG TAB PO SCH ×3 (09:58→20:57)
[2018-06-19] MEDS: FUROSEMIDE INJ 10 MG/ML 4 ML VIAL IV SCH ×2 (09:58→16:55)
[2018-06-19] MEDS: GLIMEPIRIDE 2 MG TAB PO SCH ×2 (09:58→16:55)
[2018-06-19] MEDS: FERROUS SULFATE 325 MG TAB PO SCH ×2 (09:58→16:55)
[2018-06-19] MEDS: METOPROLOL TARTRATE 25 MG TAB PO SCH ×2 (09:59→16:55)
[2018-06-19] MEDS: FOLIC ACID 1 MG TAB PO SCH (09:59)
[2018-06-19] MEDS: BALSAM PERU/CASTOR OIL 60 GM OINT...G. TP SCH (09:59)
[2018-06-19] MEDS: CHLORTHALIDONE 25 MG TAB PO SCH (09:59)
[2018-06-19 12:55] LABS: EOSINOPHILS % (MANUAL) 6 % (0-7); LYMPHOCYTES % (MANUAL) 8 % (19-48); MONOCYTES % (MANUAL) 9 % (3.4-9.0); NEUTROPHILS % (MANUAL) 76 % (40-74)
[2018-06-19 12:59] LABS: PLATELET ESTIMATE MODERATELY INCREASED; PLATELET MORPHOLOGY COMMENT NORMAL
[2018-06-19 13:00] LABS: ANISOCYTOSIS SLIGHT; POIKILOCYTOSIS SLIGHT; RBC MORPHOLOGY COMMENT NORMAL
[2018-06-19] MEDS: INSULIN DETEMIR 100 UNIT/ML PEN SQ SCH (20:58)
[2018-06-20] VITALS (48 sets, daily range): BP systolic 121–162; BP diastolic 50–91
[2018-06-20] MEDS ORDERED: SODIUM CHLORIDE 0.9% 250ML 250 ML ONE ×2 (01:18→14:38)
[2018-06-20] MEDS: VANCOMYCIN HCL 1.5 GM in SODIUM CHLORIDE 0.9% 250ML 300 ML IV SCH (01:40)
[2018-06-20 05:10] LABS: BASOPHILS # (AUTO) 0.1 (0.0-0.1); BASOPHILS % 0.6 % (0.0-1.0); EOSINOPHILS % 5.9 % (0.0-6.0); HEMATOCRIT 37.9 % (38.2-49.6); HEMOGLOBIN 11.2 g/dL (14.0-18.0); LYMPHOCYTES # (AUTO) 1.9 (1.0-3.2); LYMPHOCYTES % 11.4 % (18.0-39.1); MEAN CORPUSCULAR HEMOGLOBIN 24.3 pg (28-32); MEAN CORPUSCULAR HGB CONC 29.6 g/dL (31-35); MEAN CORPUSCULAR VOLUME 82.2 fL (81-99); MONOCYTES # (AUTO) 1.5 (0.2-0.8); MONOCYTES % 9.2 % (4.4-11.3); NEUTROPHILS # (AUTO) 11.8 (2.1-6.9); NEUTROPHILS % 72.2 % (38.7-80.0); PLATELET COUNT 381 x10e3/uL (140-360); RED BLOOD COUNT 4.61 x10e6/uL (4.3-5.7); RED CELL DISTRIBUTION WIDTH 18.7 % (11.7-14.4)
[2018-06-20 05:25] LABS: INR 1.11; PROTHROMBIN TIME 15.3 seconds (11.9-14.5)
[2018-06-20 05:26] LABS: PARTIAL THROMBOPLASTIN TIME 28.6 seconds (23.8-35.5)
[2018-06-20 05:49] LABS: ALANINE AMINOTRANSFERASE 108 IU/L (0-55); ALBUMIN 2.3 g/dL (3.5-5.0); ALBUMIN/GLOBULIN RATIO 0.5 (0.8-2.0); ALKALINE PHOSPHATASE 158 IU/L (40-150); ANION GAP 15.9 mmol/L (8-16); BLOOD UREA NITROGEN 62 mg/dL (7-26); BUN/CREATININE RATIO 67 (6-25); CALCIUM 10.3 mg/dL (8.4-10.2); CARBON DIOXIDE 32 mmol/L (22-29); CHLORIDE 101 mmol/L (98-107); CREATININE, SERUM 0.92 mg/dL (0.72-1.25); EST GLOMERULAR FILTRATION RATE > 60 ML/MIN (60-); GLUCOSE 204 mg/dL (74-118); MAGNESIUM 1.9 MG/DL (1.3-2.1); PHOSPHORUS 3.5 MG/DL (2.3-4.7); SODIUM 146 mmol/L (136-145)
[2018-06-20 05:56] LABS: POTASSIUM 2.9 mmol/L (3.5-5.1)
[2018-06-20] MEDS: INSULIN LISPRO 100 UNIT/1 ML 3ML VIAL SQ SCH ×3 (06:08→18:03)
[2018-06-20] MEDS: PIPERACILLIN/TAZOBAC 3.375 GM in SODIUM CHLORIDE 0.9% 100 ML IV SCH ×3 (06:13→23:30)
--- NOTE | 2018-06-20 06:39 | Diagnostic Imaging Report ---
EXAMINATION: CHEST SINGLE (PORTABLE) INDICATION: Respiratory failure COMPARISON: 06/18/2018 FINDINGS: TUBES and LINES: Stable position of NG tube, endotracheal tube and interval placement of left IJ central line catheter in good position with tip overlying the SVC. LUNGS: Lungs are not well inflated. There are bibasilar atelectasis. There is no evidence of pneumonia or pulmonary edema. PLEURA: No pleural effusion or pneumothorax. HEART AND MEDIASTINUM: The cardiomediastinal silhouette is unremarkable. BONES AND SOFT TISSUES: No acute osseous lesion. Soft tissues are unremarkable. UPPER ABDOMEN: No free air under the diaphragm. IMPRESSION: 1. No acute thoracic abnormality. 2. Tubes and lines are in good position. Signed by: Dr. Adalberto Simental M.D. on 06/20/2018 6:36 AM
[2018-06-20 07:35] LABS: EOSINOPHILS % (MANUAL) 4 % (0-7); LYMPHOCYTES % (MANUAL) 18 % (19-48); MONOCYTES % (MANUAL) 5 % (3.4-9.0); NEUTROPHILS % (MANUAL) 72 % (40-74)
[2018-06-20 07:36] LABS: ANISOCYTOSIS SLIGHT; PLATELET ESTIMATE ADEQUATE; PLATELET MORPHOLOGY COMMENT NORMAL; POIKILOCYTOSIS SLIGHT; RBC MORPHOLOGY COMMENT NORMAL
[2018-06-20] MEDS ORDERED: POTASSIUM CHLORIDE 20MEQ/100ML 200 ML IV PRN (08:15)
[2018-06-20] MEDS ORDERED: POTASSIUM CHLORIDE 20MEQ/100ML 300 ML IV ONE (08:15)
[2018-06-20] MEDS: METOPROLOL TARTRATE INJ 1 MG/ML VIAL IV PRN ×2 (08:45→17:49)
[2018-06-20] MEDS: FAMOTIDINE 20 MG/2 ML VIAL IV SCH ×2 (08:49→21:02)
[2018-06-20] MEDS: FUROSEMIDE INJ 10 MG/ML 4 ML VIAL IV SCH (08:49)
[2018-06-20] MEDS: PANTOPRAZOLE SOD 40 MG TABEC PO SCH (09:00)
[2018-06-20] MEDS: FERROUS SULFATE 325 MG TAB PO SCH ×2 (09:30→21:02)
[2018-06-20] MEDS: POTASSIUM CHLORIDE 20MEQ/15ML UDC NG SCH (09:30)
[2018-06-20] MEDS: ACETAZOLAMIDE 250 MG TAB PO SCH ×3 (09:30→21:03)
[2018-06-20] MEDS: PYRIDOXINE HCL 50 MG TAB PEG SCH (09:30)
[2018-06-20] MEDS: GLIMEPIRIDE 2 MG TAB PO SCH ×2 (09:30→17:49)
[2018-06-20] MEDS: FOLIC ACID 1 MG TAB PO SCH (09:31)
[2018-06-20] MEDS: BALSAM PERU/CASTOR OIL 60 GM OINT...G. TP SCH (09:31)
[2018-06-20] MEDS: CHLORTHALIDONE 25 MG TAB PO SCH (09:31)
[2018-06-20] MEDS: METOPROLOL TARTRATE 25 MG TAB PO SCH ×2 (09:31→21:02)
--- NOTE | 2018-06-20 13:16 | Diagnostic Imaging Report ---
Examination: Single AP view of the chest. COMPARISON: Portable chest 06/20/2018 INDICATION: Line placement IMPRESSION: 1. Lines and Tubes: Interval placement of right IJ central line, with distal tip projecting at the cavoatrial junction. Left-sided subclavian line, endotracheal tube and enteric tube are unchanged. 2. Minimal bibasilar atelectasis. No consolidation or effusion. 3. Cardiac silhouette is unremarkable. Pulmonary vasculature is normal. Signed by: Dr. Cesario Medina M.D. on 06/20/2018 1:13 PM
--- NOTE | 2018-06-20 14:21 | Progress Note ---
DATE: June 20, 2018 PULMONARY MEDICINE PROGRESS NOTE SUBJECTIVE: Mr. Conway was seen and examined at bedside. White count is a little bit elevated. He will intermittently follow commands upon repeated prompting. However, he still remains very chronic and on the ventilator. The patient has stable kidney function. REVIEW OF SYSTEMS: Cannot get as he is intubated. OBJECTIVE VITAL SIGNS: Afebrile. Vital signs noted per electronic record. GENERAL: In no acute distress. Alert and calm. HEENT: Normocephalic, atraumatic. NECK: Supple. Throat is midline. LUNGS: Bilateral air entry. Lungs with severe rhonchi. CARDIOVASCULAR: S1, S2. No murmurs, rubs, or gallops. ABDOMEN: Soft, nontender. EXTREMITIES: No clubbing. No cyanosis. There is 1 to 2+ edema in the legs. INTEGUMENT: No rash, no purpura. LABS: Potassium ___, 0.9 creatinine, 15 hemoglobin, 38 hematocrit. IMPRESSION 1. Acute respiratory failure, intubated. 2. Pneumonia. 3. Urinary tract infection. 4. Fluid overload, better. 5. Acute kidney failure, improved. 6. Metabolic encephalopathy. 7. Critical illness polyneuropathy. Continue current treatment at this time for the most part. After discussion with the family, they have elected for tracheostomy and PEG tube placement. The patient should probably go to long-term acute care hospital facility after these. Will have repeat intermittent white count to ensure it improves. Will follow along closely. Job#: [id number]
--- NOTE | 2018-06-20 14:58 | Diagnostic Imaging Report ---
Procedure: Right internal jugular central venous catheter placement with ultrasound guidance treating plant operator: Dr. John Rooney Pre-operative diagnosis: Requiring central venous access Post-operative diagnosis: Status post central venous access Conscious Sedation: None The patient's heart rate and pulse oximetry were continuously monitored by the nurse. Additional Medications: Lidocaine 1% for local anesthesia Fluoroscopy time: 0 Dose-area Product: 0 mGycm2. Frontal Air Kerma: 0 Contrast used: 0 Estimated blood loss: Minimal Specimens: None Implants: 7 Ethiopian 16 cm triple-lumen central venous catheter DISCUSSION: Informed consent was obtained and documented in the medical record. The patient was placed in the supine position. Preliminary sonographic evaluation of the right neck confirmed a patent and compressible right internal jugular vein. The neck was then prepped and draped in a standard sterile fashion. Subsequently, 1% lidocaine was infiltrated into the skin and subcutaneous tissues for local anesthesia. Then under continuous sonographic guidance, a micropuncture needle was advanced into the right internal jugular vein. A permanent sonographic image was stored in the medical record. An .018'' wire was placed and upsized to an .035'' Amplatz wire using micropuncture sheath. The .035'' wire was advanced centrally with continuous cardiac rhythm monitoring. The micropuncture sheath was removed. The tract was dilated. Then, a 7 Ethiopian, 16 cm triple-lumen non-tunneled central venous catheter was advanced over the wire. The wire was then removed. Each lumen was tested and showed adequate bidirectional flow. The catheter was secured to the skin with Monocryl, flushed with sterile saline, and covered by a sterile dressing. The patient tolerated the procedure well without immediate complication. FINDINGS: Patent right internal jugular vein. IMPRESSION: Placement of a 7 Ethiopian x 16 cm triple-lumen central venous catheter by a right internal jugular approach under sonographic guidance. A postprocedure chest radiograph will be obtained to confirm line positioning prior to use. Signed by: Dr. John Rooney MD on 06/20/2018 2:55 PM
--- NOTE | 2018-06-20 15:40 | Consultation ---
DATE OF CONSULTATION: June 20, 2018 CHIEF COMPLAINT: Ventilator dependence. HISTORY OF PRESENT ILLNESS: The patient is a 72-year-old male with morbid obesity and multiple comorbidities, admitted with shortness of breath and chest pain. Approximately 2 weeks ago, the patient went into cardiorespiratory arrest requiring intubation. He was treated for pneumonia. The patient has been nonresponsive, and consultation is requested for a tracheostomy tube placement. PAST MEDICAL HISTORY: Significant for coronary artery disease, congestive heart failure, hypertension, hyperlipidemia, diabetes, atrial fibrillation, cor pulmonale. SURGICAL HISTORY: Unremarkable. ALLERGIES: HE HAS NO KNOWN DRUG ALLERGIES. SOCIAL HABITS: No history of alcohol abuse or chronic smoking. REVIEW OF SYSTEMS: Not obtainable. PHYSICAL EXAMINATION VITAL SIGNS: Stable. T-max 99.3. GENERAL: The patient is intubated and sedated. HEENT: Sclerae are nonicteric. LUNGS: Bilateral rhonchi. HEART: Irregular rate and rhythm. No murmurs. ABDOMEN: Obese. No rigidity. No distention. EXTREMITIES: Ankle edema is present. LABS: His current white cell count is 16,000. Hemoglobin of 11 with platelet count of 381. Creatinine is 0.9 with bilirubin of 1.6 and alkaline phosphatase 158. INR is 1.1. Chest x-ray showed basilar atelectasis bilaterally. No effusions or consolidation. ASSESSMENT: Ventilator dependence in a patient with chronic heart and lung disease. The patient will need a tracheostomy tube for management and weaning purpose. PLAN: Tracheostomy tube placement under anesthesia. Attendant risks discussed. Job#: [id number]
[2018-06-20] MEDS: FUROSEMIDE 20 MG TAB PO SCH (17:49)
[2018-06-20] MEDS: IPRATROPIUM BROMIDE 0.02% 2.5 ML NEB NEB PRN (19:20)
[2018-06-20] MEDS: ALBUTEROL SULF 0.083% NEB SOLN 3 ML NEB INH PRN (19:20)
[2018-06-20] MEDS: INSULIN DETEMIR 100 UNIT/ML PEN SQ SCH (21:14)
[2018-06-21] VITALS (45 sets, daily range): BP systolic 121–195; BP diastolic 42–110
[2018-06-21 04:44] LABS: BASOPHILS # (AUTO) 0.1 (0.0-0.1); BASOPHILS % 0.7 % (0.0-1.0); EOSINOPHILS # (AUTO) 0.6 (0.0-0.4); EOSINOPHILS % 4.9 % (0.0-6.0); HEMATOCRIT 35.9 % (38.2-49.6); HEMOGLOBIN 10.7 g/dL (14.0-18.0); LYMPHOCYTES # (AUTO) 1.5 (1.0-3.2); LYMPHOCYTES % 12.7 % (18.0-39.1); MEAN CORPUSCULAR HEMOGLOBIN 24.5 pg (28-32); MEAN CORPUSCULAR HGB CONC 29.8 g/dL (31-35); MEAN CORPUSCULAR VOLUME 82.3 fL (81-99); MONOCYTES # (AUTO) 1.2 (0.2-0.8); MONOCYTES % 10.4 % (4.4-11.3); NEUTROPHILS # (AUTO) 8.4 (2.1-6.9); NEUTROPHILS % 70.8 % (38.7-80.0); PLATELET COUNT 327 x10e3/uL (140-360); RED BLOOD COUNT 4.36 x10e6/uL (4.3-5.7); RED CELL DISTRIBUTION WIDTH 18.6 % (11.7-14.4)
[2018-06-21 04:52] LABS: INR 1.04; PROTHROMBIN TIME 14.5 seconds (11.9-14.5)
[2018-06-21 05:02] LABS: ALANINE AMINOTRANSFERASE 96 IU/L (0-55); ALBUMIN 2.2 g/dL (3.5-5.0); ALBUMIN/GLOBULIN RATIO 0.5 (0.8-2.0); ALKALINE PHOSPHATASE 143 IU/L (40-150); ANION GAP 15.3 mmol/L (8-16); BLOOD UREA NITROGEN 62 mg/dL (7-26); BUN/CREATININE RATIO 71 (6-25); CALCIUM 10.1 mg/dL (8.4-10.2); CARBON DIOXIDE 30 mmol/L (22-29); CHLORIDE 101 mmol/L (98-107); CREATININE, SERUM 0.87 mg/dL (0.72-1.25); EST GLOMERULAR FILTRATION RATE > 60 ML/MIN (60-); GLUCOSE 208 mg/dL (74-118); POTASSIUM 3.3 mmol/L (3.5-5.1); SODIUM 143 mmol/L (136-145)
[2018-06-21] MEDS: INSULIN LISPRO 100 UNIT/1 ML 3ML VIAL SQ SCH ×4 (05:30→18:00)
[2018-06-21] MEDS: ACETAZOLAMIDE 250 MG TAB PO SCH ×3 (05:37→21:18)
[2018-06-21] MEDS: FUROSEMIDE 20 MG TAB PO SCH ×2 (05:37→17:09)
[2018-06-21] MEDS: PIPERACILLIN/TAZOBAC 3.375 GM in SODIUM CHLORIDE 0.9% 100 ML IV SCH ×3 (05:56→23:51)
[2018-06-21] MEDS: METOPROLOL TARTRATE 25 MG TAB PO SCH ×2 (08:46→21:18)
[2018-06-21] MEDS: CHLORTHALIDONE 25 MG TAB PO SCH (08:46)
[2018-06-21] MEDS: BALSAM PERU/CASTOR OIL 60 GM OINT...G. TP SCH (08:47)
[2018-06-21] MEDS: PYRIDOXINE HCL 50 MG TAB PEG SCH (08:47)
[2018-06-21] MEDS: FOLIC ACID 1 MG TAB PO SCH (08:47)
[2018-06-21] MEDS: GLIMEPIRIDE 2 MG TAB PO SCH ×2 (08:47→17:09)
[2018-06-21] MEDS: FERROUS SULFATE 325 MG TAB PO SCH ×2 (08:47→21:17)
[2018-06-21] MEDS: FAMOTIDINE 20 MG/2 ML VIAL IV SCH ×2 (08:47→21:17)
[2018-06-21] MEDS: POTASSIUM CHLORIDE 20MEQ/15ML UDC NG SCH (08:47)
--- NOTE | 2018-06-21 14:00 | Progress Note ---
DATE: June 21, 2018 PULMONARY MEDICINE PROGRESS NOTE SUBJECTIVE: Mr. Conway was seen and examined at bedside. He has continued ventilator dependency. On repetitive prodding, he will sometimes follow simple commands. He is having some strength return in his neck, but overall he is still weak in all of his extremities. REVIEW OF SYSTEMS: Cannot get as he is intubated. OBJECTIVE VITAL SIGNS: Afebrile. Vital signs noted per electronic record. GENERAL: In no acute distress. Lethargic in bed. HEENT: Normocephalic, atraumatic. NECK: Supple. Throat is midline. LUNGS: Bilateral air entry. Rare rhonchi. CARDIOVASCULAR: S1, S2. No murmurs, rubs, or gallops. ABDOMEN: Soft, nontender. EXTREMITIES: No clubbing. No cyanosis. There is 1 to 2+ edema, mostly wrinkled. INTEGUMENT: No rash, no purpura. LABS: Potassium 3.3, 0.9 creatinine, 11.9 white count. IMPRESSION AND PLAN 1. Acute respiratory failure. 2. Chronic respiratory failure. 3. Pneumonia. 4. Urinary tract infection. 5. Status post cardiac arrest. 6. Intensive care unit polyneuropathy. At this time, the patient is to be scheduled for a tracheostomy. Surgeon was consulted. GI on the case and will consider PEG tube for the dysphagia component. The patient is not close to extubation. He will fare better to allow better recovery with these procedures to buy him some time. Continue medicines including antibiotics per infectious disease expert. Job#: [id number]
[2018-06-21] MEDS: VANCOMYCIN HCL 1.5 GM in SODIUM CHLORIDE 0.9% 250ML 300 ML IV SCH (17:09)
[2018-06-21] MEDS: HYDRALAZINE HCL 25 MG TAB PEG SCH ×2 (17:10→21:00)
[2018-06-21] MEDS: INSULIN DETEMIR 100 UNIT/ML PEN SQ SCH (22:24)
[2018-06-22] VITALS (48 sets, daily range): BP systolic 139–184; BP diastolic 21–108
[2018-06-22] MEDS: INSULIN LISPRO 100 UNIT/1 ML 3ML VIAL SQ SCH ×4 (01:00→18:41)
[2018-06-22] MEDS: ACETAZOLAMIDE 250 MG TAB PO SCH ×3 (04:36→21:00)
[2018-06-22] MEDS: FUROSEMIDE 20 MG TAB PO SCH ×2 (04:37→18:00)
[2018-06-22 04:46] LABS: INR 1.07; PROTHROMBIN TIME 14.9 seconds (11.9-14.5)
[2018-06-22 04:51] LABS: ANION GAP 15.8 mmol/L (8-16); BLOOD UREA NITROGEN 61 mg/dL (7-26); BUN/CREATININE RATIO 81 (6-25); CALCIUM 10.5 mg/dL (8.4-10.2); CARBON DIOXIDE 29 mmol/L (22-29); CHLORIDE 103 mmol/L (98-107); CREATININE, SERUM 0.75 mg/dL (0.72-1.25); EST GLOMERULAR FILTRATION RATE > 60 ML/MIN (60-); GLUCOSE 177 mg/dL (74-118); MAGNESIUM 1.8 MG/DL (1.3-2.1); PHOSPHORUS 3.4 MG/DL (2.3-4.7); SODIUM 145 mmol/L (136-145)
[2018-06-22 04:53] LABS: POTASSIUM 2.8 mmol/L (3.5-5.1)
[2018-06-22] MEDS ORDERED: POTASSIUM CHLORIDE 20MEQ/100ML 300 ML IV ONE (05:15)
[2018-06-22] MEDS: PIPERACILLIN/TAZOBAC 3.375 GM in SODIUM CHLORIDE 0.9% 100 ML IV SCH ×3 (07:00→22:53)
[2018-06-22] MEDS ORDERED: BUPIVACAINE 0.5%/EPI 30 ML SDV INJ ONE (07:42)
[2018-06-22] MEDS: GLIMEPIRIDE 2 MG TAB PO SCH ×2 (08:00→17:00)
[2018-06-22] MEDS ORDERED: LACTATED RINGER'S 1,000 ML ONE (08:14)
[2018-06-22] MEDS: FERROUS SULFATE 325 MG TAB PO SCH ×2 (09:00→21:00)
[2018-06-22] MEDS: PYRIDOXINE HCL 50 MG TAB PEG SCH (09:00)
[2018-06-22] MEDS: FAMOTIDINE 20 MG/2 ML VIAL IV SCH ×2 (09:00→21:43)
[2018-06-22] MEDS: HYDRALAZINE HCL 25 MG TAB PEG SCH ×3 (09:00→20:59)
[2018-06-22] MEDS: FOLIC ACID 1 MG TAB PO SCH (09:00)
[2018-06-22] MEDS: POTASSIUM CHLORIDE 20MEQ/15ML UDC NG SCH (09:00)
[2018-06-22] MEDS: METOPROLOL TARTRATE 25 MG TAB PO SCH ×2 (09:00→21:00)
[2018-06-22] MEDS: CHLORTHALIDONE 25 MG TAB PO SCH (09:00)
[2018-06-22] MEDS: BALSAM PERU/CASTOR OIL 60 GM OINT...G. TP SCH ×2 (10:03→18:39)
--- NOTE | 2018-06-22 10:16 | Operative Report ---
DATE OF PROCEDURE: June 22, 2018 PREOPERATIVE DIAGNOSES 1. Pneumonia. 2. Ventilator dependence. POSTOPERATIVE DIAGNOSES 1. Pneumonia. 2. Ventilator dependence. OPERATIVE PROCEDURE: Tracheostomy tube placement. ANESTHESIA: General endotracheal. INDICATIONS: The patient is a 72-year-old male with history of pneumonia and sepsis and ventilator dependence, requiring a tracheostomy tube for ventilator management. Attendant risks discussed with the patient's family. DESCRIPTION OF PROCEDURE: The patient was brought to the OR from the ICU in his hospital bed. Neck was extended on thyroid pillow and shoulder lift. Neck was prepped with alcohol and draped in a sterile fashion. Transverse incision was made 1 fingerbreadth above the suprasternal notch extending through skin, subcutaneous tissue and platysma. The strap muscles were in the midline vertically. The patient has a low-lying cricoid cartilage, which was retracted in a cephalad direction with a tracheal hook. We then entered the 2nd tracheal ring with a Bovie, and the tracheal ring was cut bilaterally. The ring itself was retracted in the caudad direction, exposing the tracheal opening for insertion of an extended-length Shiley 8 tracheostomy tube. The balloon was inflated and connected to the ventilator without difficulty. The tracheostomy tube was anchored to the skin with 2-0 Prolene stitch and tracheostomy collar. The patient tolerated the procedure well and was transported to the recovery room and ICU. Estimated blood loss was 5 mL. Job#: [id number]
--- NOTE | 2018-06-22 14:41 | Progress Note ---
DATE: June 22, 2018 PULMONARY MEDICINE PROGRESS NOTE SUBJECTIVE: Mr. Conway was seen and examined at bedside. No new fevers. Hemodynamically stable. Patient remains on the ventilator for support. Tracheostomy was placed today and he has a new proximal XLT tracheostomy in place. No complications. REVIEW OF SYSTEMS: Cannot get as he is intubated. OBJECTIVE VITAL SIGNS: Afebrile. Vital signs noted per electronic record. GENERAL: In no acute distress. Alert and calm. HEENT: Normocephalic, atraumatic. NECK: Supple. Throat is midline. LUNGS: Bilateral air entry. Rare rhonchi. CARDIOVASCULAR: S1, S2. No murmurs, rubs, or gallops. ABDOMEN: Soft, nontender. EXTREMITIES: No clubbing. No cyanosis. There is 1 to 2+ trace edema. INTEGUMENT: No rash, no purpura. LABS: BUN 61, creatinine 0.8, potassium 3.1. White count 12, platelets 327. IMPRESSION AND PLAN 1. Acute respiratory failure on ventilator. 2. Chronic respiratory failure, status post tracheostomy. 3. Dysphagia. 4. Status post cardiac arrest. 5. Pulmonary edema, better. 6. Pneumonia, better. 7. Urinary tract infection, better. Continue to follow him up. Continue serial neurological evaluations as he makes progress. He gets some anesthesia, but we hope he regains his functionality where he was sometimes starting to participate in one step commands. Continue antibiotics per other physicians. Diuretics on board. PEG tube like to be placed in the next day or two. Continue wound care as he is a difficult wound care assignment. Job#: [id number] VAS
[2018-06-22] MEDS ORDERED: ROCURONIUM BROMIDE 10 MG/ML 5ML VIAL ONE (17:16)
[2018-06-22] MEDS ORDERED: DEXAMETHASONE SOD PHOS INJ 4 MG/ML VIAL ONE (17:16)
[2018-06-22] MEDS ORDERED: SEVOFLURANE INHAL SOLN 250 ML PEN BTL ONE (17:16)
[2018-06-22] MEDS ORDERED: FENTANYL CITRATE/PF 100MCG/2 ML INJ ONE (17:42)
[2018-06-22] MEDS ORDERED: MIDAZOLAM HCL 2 MG/2 ML VIAL ONE (17:42)
[2018-06-22] MEDS: METOPROLOL TARTRATE INJ 1 MG/ML VIAL IV PRN (21:43)
[2018-06-22] MEDS: INSULIN DETEMIR 100 UNIT/ML PEN SQ SCH (22:44)
[2018-06-23] VITALS (85 sets, daily range): BP systolic 121–187; BP diastolic 52–126
[2018-06-23] MEDS ORDERED: ACETAMINOPHEN 650 MG SUPP PR PRN (00:45)
[2018-06-23] MEDS ORDERED: SODIUM CHLORIDE 0.9% 1000ML 300 ML IV ONE (00:45)
[2018-06-23] MEDS ORDERED: SODIUM CHLORIDE 0.9% 250ML 0 ML ONE (04:07)
[2018-06-23] MEDS: VANCOMYCIN HCL 1.5 GM in SODIUM CHLORIDE 0.9% 250ML 300 ML IV SCH (04:10)
[2018-06-23] MEDS: HYDRALAZINE HCL 20 MG/ML VIAL IV PRN ×2 (04:10→20:50)
[2018-06-23 04:27] LABS: BASOPHILS # (AUTO) 0.1 (0.0-0.1); BASOPHILS % 0.5 % (0.0-1.0); HEMATOCRIT 33.5 % (38.2-49.6); LYMPHOCYTES # (AUTO) 1.1 (1.0-3.2); LYMPHOCYTES % 8.8 % (18.0-39.1); MEAN CORPUSCULAR HEMOGLOBIN 24.3 pg (28-32); MEAN CORPUSCULAR HGB CONC 29.9 g/dL (31-35); MEAN CORPUSCULAR VOLUME 81.5 fL (81-99); MONOCYTES # (AUTO) 1.6 (0.2-0.8); MONOCYTES % 12.2 % (4.4-11.3); NEUTROPHILS # (AUTO) 10.2 (2.1-6.9); NEUTROPHILS % 78.1 % (38.7-80.0); PLATELET COUNT 347 x10e3/uL (140-360); RED BLOOD COUNT 4.11 x10e6/uL (4.3-5.7)
[2018-06-23 04:51] LABS: ALANINE AMINOTRANSFERASE 100 IU/L (0-55); ALBUMIN 2.1 g/dL (3.5-5.0); ALBUMIN/GLOBULIN RATIO 0.5 (0.8-2.0); ALKALINE PHOSPHATASE 124 IU/L (40-150); ANION GAP 16.3 mmol/L (8-16); BLOOD UREA NITROGEN 70 mg/dL (7-26); BUN/CREATININE RATIO 91 (6-25); CALCIUM 10.6 mg/dL (8.4-10.2); CARBON DIOXIDE 27 mmol/L (22-29); CHLORIDE 109 mmol/L (98-107); CREATININE, SERUM 0.77 mg/dL (0.72-1.25); EST GLOMERULAR FILTRATION RATE > 60 ML/MIN (60-); GLUCOSE 216 mg/dL (74-118); POTASSIUM 3.3 mmol/L (3.5-5.1); SODIUM 149 mmol/L (136-145)
[2018-06-23] MEDS: INSULIN LISPRO 100 UNIT/1 ML 3ML VIAL SQ SCH ×4 (05:53→18:00)
[2018-06-23] MEDS: ACETAZOLAMIDE 250 MG TAB PO SCH (05:55)
[2018-06-23] MEDS: FUROSEMIDE 20 MG TAB PO SCH (05:56)
[2018-06-23] MEDS: PIPERACILLIN/TAZOBAC 3.375 GM in SODIUM CHLORIDE 0.9% 100 ML IV SCH ×3 (07:45→23:23)
[2018-06-23] MEDS: GLIMEPIRIDE 2 MG TAB PO SCH ×2 (08:00→17:00)
[2018-06-23] MEDS: METOPROLOL TARTRATE INJ 1 MG/ML VIAL IV PRN ×4 (08:26→22:16)
[2018-06-23] MEDS: POTASSIUM CHLORIDE 20MEQ/100ML 200 ML IV PRN (08:28)
[2018-06-23] MEDS: FERROUS SULFATE 325 MG TAB PO SCH ×2 (09:00→20:54)
[2018-06-23] MEDS: PYRIDOXINE HCL 50 MG TAB PEG SCH (09:00)
[2018-06-23] MEDS: FOLIC ACID 1 MG TAB PO SCH (09:00)
[2018-06-23] MEDS: METOPROLOL TARTRATE 25 MG TAB PO SCH ×2 (09:00→20:54)
[2018-06-23] MEDS: CHLORTHALIDONE 25 MG TAB PO SCH (09:00)
[2018-06-23] MEDS: HYDRALAZINE HCL 25 MG TAB PEG SCH ×3 (09:00→20:54)
[2018-06-23] MEDS: POTASSIUM CHLORIDE 20MEQ/15ML UDC NG SCH (09:00)
[2018-06-23] MEDS: FAMOTIDINE 20 MG/2 ML VIAL IV SCH ×2 (10:21→20:46)
[2018-06-23] MEDS: BALSAM PERU/CASTOR OIL 60 GM OINT...G. TP SCH ×2 (10:21→17:52)
[2018-06-23] MEDS ORDERED: FENTANYL CITRATE/PF 100MCG/2 ML INJ ONE (12:52)
[2018-06-23] MEDS ORDERED: MIDAZOLAM HCL 2 MG/2 ML VIAL ONE (12:52)
[2018-06-23] MEDS: INSULIN DETEMIR 100 UNIT/ML PEN SQ SCH (20:57)
[2018-06-23] MEDS ORDERED: PIPER-TAZ 3.375 GM 50 ML ONE (23:22)
[2018-06-23] MEDS ORDERED: SODIUM CHLORIDE 0.9% 100 ML ONE ×2 (23:23→23:24)
[2018-06-23] MEDS ORDERED: POTASSIUM CHL IV SCH (23:45)
[2018-06-23] MEDS ORDERED: DEXTROSE 5% IV SCH (23:45)
[2018-06-24] VITALS (62 sets, daily range): BP systolic 119–175; BP diastolic 45–83
[2018-06-24] MEDS ORDERED: POTASSIUM CHL 20 MEQ in DEXTROSE 5% 1,000 ML IV SCH (00:08)
--- NOTE | 2018-06-24 00:35 | Progress Note ---
DATE: June 23, 2018 PULMONARY MEDICINE PROGRESS NOTE SUBJECTIVE: Mr. Conway was seen and examined at bedside. He continues to have slow progress. His eyes spontaneously awaken. He seems to track his surroundings. He went for PEG tube placement today. Patient did have some complicating tachycardia yesterday. He received some fluid for that. REVIEW OF SYSTEMS: Cannot get as he was not talking. OBJECTIVE VITAL SIGNS: Afebrile. Vital signs noted per electronic record. GENERAL: In no acute distress, calm on bed. HEENT: Normocephalic, atraumatic. NECK: Supple. Throat is midline. LUNGS: Bilateral air entry, limited. Rare rhonchi. CARDIOVASCULAR: S1, S2. No murmurs, rubs, or gallops. ABDOMEN: Soft, nontender. EXTREMITIES: No clubbing. No cyanosis. There is 1 to 2+ wrinkled edema. INTEGUMENT: No rash, no purpura. LABS: Patient with potassium 3.2, 70 BUN, 0.8 creatinine. White count 13, 34 hematocrit, 347 platelets. IMPRESSION AND PLAN 1. Acute respiratory failure, on ventilator. 2. Chronic respiratory failure, status post tracheostomy. 3. Dysphagia, status post percutaneous endoscopic gastrostomy tube today. 4. Admit for gram-negative sima urinary tract infection. 5. Bilateral pneumonia. 6. Fluid overload, better. 7. Status post cardiopulmonary resuscitation, with improving mentation. 8. Acute kidney injury, resolved. Continue follow up kidney function. Avoid nephrotoxic agents. We will add little bit more fluid today, but patient not receiving substantial input. Continue IV antibiotics. PEG tube to gravity. Continue ventilator support and wean back to his preop settings. We will follow along closely. Patient is ready for LTAC transfer. Job#: [id number] VAS
[2018-06-24] MEDS ORDERED: POTASSIUM CHLORIDE 20MEQ/100ML 100 ML IV ONE (00:45)
[2018-06-24] MEDS: INSULIN LISPRO 100 UNIT/1 ML 3ML VIAL SQ SCH ×4 (00:51→18:23)
[2018-06-24] MEDS: DEXTROSE 5% 1,000 ML IV SCH ×2 (01:21→18:22)
[2018-06-24] MEDS: METOPROLOL TARTRATE INJ 1 MG/ML VIAL IV PRN ×3 (01:55→16:40)
[2018-06-24 04:40] LABS: BASOPHILS # (AUTO) 0.1 (0.0-0.1); BASOPHILS % 0.8 % (0.0-1.0); EOSINOPHILS % 0.4 % (0.0-6.0); HEMATOCRIT 33.7 % (38.2-49.6); HEMOGLOBIN 10.1 g/dL (14.0-18.0); LYMPHOCYTES # (AUTO) 1.5 (1.0-3.2); LYMPHOCYTES % 13.9 % (18.0-39.1); MEAN CORPUSCULAR HEMOGLOBIN 24.9 pg (28-32); MEAN CORPUSCULAR VOLUME 83.2 fL (81-99); MONOCYTES # (AUTO) 1.8 (0.2-0.8); MONOCYTES % 16.6 % (4.4-11.3); NEUTROPHILS # (AUTO) 7.5 (2.1-6.9); NEUTROPHILS % 67.9 % (38.7-80.0); PLATELET COUNT 395 x10e3/uL (140-360); RED BLOOD COUNT 4.05 x10e6/uL (4.3-5.7); RED CELL DISTRIBUTION WIDTH 19.2 % (11.7-14.4)
[2018-06-24 05:06] LABS: ALANINE AMINOTRANSFERASE 101 IU/L (0-55); ALBUMIN 2.1 g/dL (3.5-5.0); ALBUMIN/GLOBULIN RATIO 0.5 (0.8-2.0); ALKALINE PHOSPHATASE 117 IU/L (40-150); ANION GAP 15.7 mmol/L (8-16); BLOOD UREA NITROGEN 65 mg/dL (7-26); BUN/CREATININE RATIO 93 (6-25); CALCIUM 11.1 mg/dL (8.4-10.2); CARBON DIOXIDE 27 mmol/L (22-29); CHLORIDE 115 mmol/L (98-107); EST GLOMERULAR FILTRATION RATE > 60 ML/MIN (60-); GLUCOSE 216 mg/dL (74-118); POTASSIUM 3.7 mmol/L (3.5-5.1); SODIUM 154 mmol/L (136-145)
[2018-06-24] MEDS: PIPERACILLIN/TAZOBAC 3.375 GM in SODIUM CHLORIDE 0.9% 100 ML IV SCH (07:30)
--- NOTE | 2018-06-24 07:33 | Diagnostic Imaging Report ---
EXAMINATION: CHEST SINGLE (PORTABLE) INDICATION: CHF. COMPARISON: Chest x-ray 06/20/2018. FINDINGS: AP view TUBES and LINES: Right IJ central line with tip at the atriocaval junction is unchanged. Interval conversion of the endotracheal tube to a tracheostomy tube. Nasogastric tube has been removed. The left IJ central line has been removed. LUNGS: Lungs are moderate inflated. There are bibasilar atelectasis. There is increasing perihilar interstitial opacities, consistent with interstitial edema. PLEURA: No pleural effusion or pneumothorax. HEART AND MEDIASTINUM: Cardiac size is mildly enlarged. BONES AND SOFT TISSUES: No acute osseous lesion. Soft tissues are unremarkable. UPPER ABDOMEN: No free air under the diaphragm. IMPRESSION: Increasing interstitial edema. Signed by: Dr. Mekhi Davis M.D. on 06/24/2018 7:29 AM
[2018-06-24] MEDS: GLIMEPIRIDE 2 MG TAB PO SCH ×2 (08:00→17:00)
[2018-06-24] MEDS: PYRIDOXINE HCL 50 MG TAB PEG SCH (08:54)
[2018-06-24] MEDS: FAMOTIDINE 20 MG/2 ML VIAL IV SCH ×2 (08:54→20:33)
[2018-06-24] MEDS: FOLIC ACID 1 MG TAB PO SCH (08:54)
[2018-06-24] MEDS: POTASSIUM CHLORIDE 20MEQ/15ML UDC NG SCH (08:54)
[2018-06-24] MEDS: HYDRALAZINE HCL 25 MG TAB PEG SCH ×3 (08:54→20:31)
[2018-06-24] MEDS: FERROUS SULFATE 325 MG TAB PO SCH ×2 (08:54→20:32)
[2018-06-24] MEDS: METOPROLOL TARTRATE 25 MG TAB PO SCH ×2 (08:55→20:33)
[2018-06-24] MEDS: BALSAM PERU/CASTOR OIL 60 GM OINT...G. TP SCH ×2 (08:55→17:09)
[2018-06-24] MEDS: CHLORTHALIDONE 25 MG TAB PO SCH (08:55)
[2018-06-24] MEDS: FUROSEMIDE 20 MG TAB PO SCH (08:55)
[2018-06-24] MEDS: PIPER-TAZ 3.375 GM 50 ML IV SCH ×2 (15:30→21:59)
--- NOTE | 2018-06-24 16:39 | Progress Note ---
DATE: June 24, 2018 PULMONARY MEDICINE PROGRESS NOTE SUBJECTIVE: Mr. Conway was seen and examined at bedside. Patient continues to have steady progress. He is moving his arm a little bit better today, but overall still very weak. He remains acceptable on ventilator. Chest x-ray with mild overload pattern, mostly clear. He is with progressive hypernatremia likely due to low ins when he was not getting any intake from the time of PEG tube. REVIEW OF SYSTEMS: No ability to get as he is intubated. OBJECTIVE VITAL SIGNS: Afebrile. Vital signs noted per electronic record. GENERAL: He is in no acute distress, alert and mostly difficult to maintain attention. Confused appearing. HEENT: Normocephalic, atraumatic. NECK: Supple. Throat midline. LUNGS: Bilateral air entry, rare rhonchi. CARDIOVASCULAR: S1, S2. No murmurs, rubs, or gallops. ABDOMEN: Soft, nontender. EXTREMITIES: No clubbing, no cyanosis. There is 1 to 2+ edema covering foot. INTEGUMENT: No rash, no purpura. LABS: Sodium 154, potassium 3.7, BUN 65, creatinine 0.7. White count 11, hematocrit 34, platelets 395. IMPRESSION 1. Acute respiratory failure, on ventilator. 2. Chronic respiratory failure, status post tracheostomy. 3. Dysphagia, status post percutaneous endoscopic gastrostomy tube. 4. Dehydration. 5. Acute kidney failure, resolved. 6. Mild hypertension, acceptable for now, controlled. 7. Mild hyperglycemia. 8. Fluid overload. 9. Pneumonia. 10. Gram-negative sima urinary tract infection. PLAN: Continue diuretics. Antibiotics to be continued per infectious disease expert. Patient remains on ventilator. Patient is okay for transfer to [facility] at this time. Staff notified. He is ready for transfer possibly tomorrow. Job#: [id number]
[2018-06-24] MEDS: VANCOMYCIN HCL 1.5 GM in SODIUM CHLORIDE 0.9% 250ML 300 ML IV SCH (20:20)
[2018-06-24] MEDS: SPIRONOLACTONE 25 MG TAB PEG SCH (20:30)
[2018-06-24] MEDS: INSULIN DETEMIR 100 UNIT/ML PEN SQ SCH (20:37)
[2018-06-25] VITALS (34 sets, daily range): BP systolic 112–166; BP diastolic 37–79
[2018-06-25] MEDS: INSULIN LISPRO 100 UNIT/1 ML 3ML VIAL SQ SCH ×4 (00:32→18:40)
[2018-06-25 04:25] LABS: ANION GAP 14.4 mmol/L (8-16); BLOOD UREA NITROGEN 56 mg/dL (7-26); BUN/CREATININE RATIO 90 (6-25); CARBON DIOXIDE 27 mmol/L (22-29); CHLORIDE 111 mmol/L (98-107); CREATININE, SERUM 0.62 mg/dL (0.72-1.25); EST GLOMERULAR FILTRATION RATE > 60 ML/MIN (60-); GLUCOSE 162 mg/dL (74-118); MAGNESIUM 1.7 MG/DL (1.3-2.1); POTASSIUM 3.4 mmol/L (3.5-5.1); SODIUM 149 mmol/L (136-145)
[2018-06-25] MEDS: PIPER-TAZ 3.375 GM 50 ML IV SCH ×3 (05:32→22:16)
[2018-06-25] MEDS: DEXTROSE 5% 1,000 ML IV SCH ×2 (05:43→18:31)
[2018-06-25] MEDS: POTASSIUM CHLORIDE 20MEQ/100ML 200 ML IV PRN (07:45)
[2018-06-25] MEDS: GLIMEPIRIDE 2 MG TAB PO SCH ×2 (10:58→21:01)
[2018-06-25] MEDS: FAMOTIDINE 20 MG/2 ML VIAL IV SCH ×2 (10:58→21:04)
[2018-06-25] MEDS: POTASSIUM CHLORIDE 20MEQ/15ML UDC NG SCH (10:59)
[2018-06-25] MEDS: IPRATROPIUM BROMIDE 0.02% 2.5 ML NEB NEB PRN (10:59)
[2018-06-25] MEDS: SPIRONOLACTONE 25 MG TAB PEG SCH (10:59)
[2018-06-25] MEDS: HYDRALAZINE HCL 25 MG TAB PEG SCH ×3 (11:05→21:01)
[2018-06-25] MEDS: CHLORTHALIDONE 25 MG TAB PO SCH (11:06)
[2018-06-25] MEDS: BALSAM PERU/CASTOR OIL 60 GM OINT...G. TP SCH ×2 (11:06→18:31)
[2018-06-25] MEDS: FOLIC ACID 1 MG TAB PO SCH (11:06)
[2018-06-25] MEDS: FERROUS SULFATE 325 MG TAB PO SCH ×2 (11:06→21:01)
[2018-06-25] MEDS: FUROSEMIDE 20 MG TAB PO SCH (11:06)
[2018-06-25] MEDS: METOPROLOL TARTRATE 25 MG TAB PO SCH ×2 (11:06→21:02)
[2018-06-25] MEDS: PYRIDOXINE HCL 50 MG TAB PEG SCH (11:06)
--- NOTE | 2018-06-25 17:16 | Progress Note ---
DATE: June 25, 2018 PULMONARY MEDICINE PROGRESS NOTE SUBJECTIVE: Mr. Conway was seen and examined at the bedside. Glucerna 1.2 at 40 mL per hour, water at 300 mL every 3 hours has been given. Residual amount in the tube feeds is 120 to 400 mL; therefore, nursing being cautious. Patient continues intubated on ventilator via tracheostomy. Minute ventilation 12. He is having increasing airway secretions. Webb present with urine output. REVIEW OF SYSTEMS: Cannot get as patient is on the ventilator. OBJECTIVE VITAL SIGNS: Afebrile. Vital signs noted per electronic record. GENERAL: No acute distress, in bed, started to move around a little bit more. HEENT: Normocephalic, atraumatic. NECK: Supple. Throat midline. LUNGS: Bilateral air entry, few rhonchi. CARDIOVASCULAR: S1, S2. No murmurs, rubs, or gallops. ABDOMEN: Soft and nontender. EXTREMITIES: No clubbing, no cyanosis. There is 1 to 2+ edema at ankle. LABS: Sodium 149, potassium 3.4, BUN 66, creatinine 0.6. White count 11, hematocrit 34, platelets 395. IMPRESSION 1. Acute respiratory failure, on ventilator. 2. Chronic respiratory failure, status post tracheostomy. 3. Pneumonia. 4. Fluid overload, much better. 5. Acute kidney failure, better. 6. Hypernatremia. PLAN: Continue intubated state, ventilator support. Patient is ready to go to long-term acute care facility. Continue fluid loading as per nuclear power plant engineer. Continue toilet airways. Bronchodilators as needed. Continue tube feeds as he allows. Job#: [id number] FRANCISCA
[2018-06-25] MEDS: INSULIN DETEMIR 100 UNIT/ML PEN SQ SCH (21:12)
[2018-06-26] VITALS (27 sets, daily range): BP systolic 100–165; BP diastolic 51–87
[2018-06-26] MEDS: INSULIN LISPRO 100 UNIT/1 ML 3ML VIAL SQ SCH ×4 (00:32→18:25)
[2018-06-26 04:46] LABS: BASOPHILS # (AUTO) 0.1 (0.0-0.1); BASOPHILS % 0.6 % (0.0-1.0); EOSINOPHILS % 9.5 % (0.0-6.0); HEMATOCRIT 28.8 % (38.2-49.6); HEMOGLOBIN 8.8 g/dL (14.0-18.0); LYMPHOCYTES # (AUTO) 1.7 (1.0-3.2); LYMPHOCYTES % 16.7 % (18.0-39.1); MEAN CORPUSCULAR HEMOGLOBIN 25.1 pg (28-32); MEAN CORPUSCULAR HGB CONC 30.6 g/dL (31-35); MEAN CORPUSCULAR VOLUME 82.3 fL (81-99); MONOCYTES # (AUTO) 1.3 (0.2-0.8); MONOCYTES % 12.7 % (4.4-11.3); NEUTROPHILS # (AUTO) 6.1 (2.1-6.9); NEUTROPHILS % 60.1 % (38.7-80.0); PLATELET COUNT 271 x10e3/uL (140-360); RED CELL DISTRIBUTION WIDTH 18.9 % (11.7-14.4)
[2018-06-26 05:16] LABS: ALANINE AMINOTRANSFERASE 70 IU/L (0-55); ALBUMIN 1.9 g/dL (3.5-5.0); ALBUMIN/GLOBULIN RATIO 0.5 (0.8-2.0); ALKALINE PHOSPHATASE 112 IU/L (40-150); ANION GAP 12.2 mmol/L (8-16); BLOOD UREA NITROGEN 42 mg/dL (7-26); BUN/CREATININE RATIO 66 (6-25); CALCIUM 10.6 mg/dL (8.4-10.2); CARBON DIOXIDE 27 mmol/L (22-29); CHLORIDE 106 mmol/L (98-107); CREATININE, SERUM 0.64 mg/dL (0.72-1.25); EST GLOMERULAR FILTRATION RATE > 60 ML/MIN (60-); GLUCOSE 132 mg/dL (74-118); POTASSIUM 4.2 mmol/L (3.5-5.1); SODIUM 141 mmol/L (136-145)
[2018-06-26] MEDS: PIPER-TAZ 3.375 GM 50 ML IV SCH ×3 (05:49→21:53)
[2018-06-26] MEDS: DEXTROSE 5% 1,000 ML IV SCH (07:56)
[2018-06-26] MEDS: VANCOMYCIN HCL 1.5 GM in SODIUM CHLORIDE 0.9% 250ML 300 ML IV SCH (07:56)
[2018-06-26] MEDS: GLIMEPIRIDE 2 MG TAB PO SCH ×2 (08:55→17:00)
[2018-06-26] MEDS: HYDRALAZINE HCL 25 MG TAB PEG SCH ×3 (08:56→21:05)
[2018-06-26] MEDS: FAMOTIDINE 20 MG/2 ML VIAL IV SCH ×2 (08:56→21:05)
[2018-06-26] MEDS: SPIRONOLACTONE 25 MG TAB PEG SCH (08:56)
[2018-06-26] MEDS: POTASSIUM CHLORIDE 20MEQ/15ML UDC NG SCH (08:56)
[2018-06-26] MEDS: FERROUS SULFATE 325 MG TAB PO SCH ×2 (08:57→21:05)
[2018-06-26] MEDS: PYRIDOXINE HCL 50 MG TAB PEG SCH (08:57)
[2018-06-26] MEDS: FOLIC ACID 1 MG TAB PO SCH (08:57)
[2018-06-26] MEDS: METOPROLOL TARTRATE 25 MG TAB PO SCH ×2 (08:58→21:05)
[2018-06-26] MEDS: CHLORTHALIDONE 25 MG TAB PO SCH (08:58)
[2018-06-26] MEDS: BALSAM PERU/CASTOR OIL 60 GM OINT...G. TP SCH ×2 (08:58→17:08)
[2018-06-26] MEDS: FUROSEMIDE 20 MG TAB PO SCH (08:58)
--- NOTE | 2018-06-26 14:08 | Progress Note ---
DATE: June 26, 2018 PULMONARY MEDICINE PROGRESS NOTE SUBJECTIVE: Mr. Conway was seen and examined at the bedside. He continues on the ventilator at this time. Minute ventilation is 9 liters per minute. Peak pressure is 24. He is on IV fluids with D5W at 90 mL per hour. He is also with tube feeds ongoing. Two bowel movements yesterday. REVIEW OF SYSTEMS: Cannot get as he is intubated. OBJECTIVE VITAL SIGNS: Afebrile. Vital signs noted per electronic record. GENERAL: No acute distress, calm in bed. Not interacting much. HEENT: Normocephalic, atraumatic. NECK: Supple. Throat midline. LUNGS: Bilateral air entry, rare rhonchi. Sounds better than yesterday. CARDIOVASCULAR: S1, S2. No murmurs, rubs, or gallops. ABDOMEN: Soft and nontender. EXTREMITIES: No clubbing, no cyanosis. There is 1 to 2+ edema of the legs. INTEGUMENT: No rash. No purpura. LABS: Potassium 4.2, 42 BUN, 0.6 creatinine, 10 white count, 29 hematocrit. IMPRESSION 1. Acute respiratory failure, on ventilator. 2. Chronic respiratory failure, status post tracheostomy. 3. Dysphagia, status post percutaneous endoscopic gastrostomy tube. 4. Pneumonia. 5. Fluid overload. 6. Urinary tract infection, gram-negative. 7. Acute kidney injury, resolving. PLAN: Patient is to continue tube feeds. Continue ventilator support. He is ready to go to long-term acute care facility for care. Continue tracheostomy toileting and hygiene of the airways. Aspiration precautions. Antibiotics ongoing as well as low-dose diuretics. Job#: [id number]
[2018-06-26] MEDS: CITRIC ACID/SODIUM CITRATE 30 ML UDC PEG SCH ×2 (14:59→21:59)
--- NOTE | 2018-06-26 18:27 | Diagnostic Imaging Report ---
EXAM: CT Chest WITHOUT contrast 06/26/2018 1:10 PM INDICATION: CHF exacerbation. Lung nodule. COMPARISON: None. Correlation with CT abdomen dated 06/08/2018. TECHNIQUE: Chest was scanned utilizing a multidetector helical scanner from the lung apex through the level of the adrenal glands without administration of IV contrast. Absence of intravenous contrast decreases sensitivity for detection of lymphadenopathy and vascular pathology. Coronal and sagittal reformations were obtained. Routine protocol was performed. IV CONTRAST: None RADIATION DOSE: Total DLP: 541.97 mGy*cm Estimated effective dose: (DLP x 0.014 x size factor) mSv COMPLICATIONS: None FINDINGS: LINES/ TUBES: Endotracheal tube in adequate position. Right central venous catheter with distal tip in the SVC just proximal to the cavoatrial junction. LUNGS AND AIRWAYS: Subtle medullary nodular densities in the right upper lobe posteriorly may be infectious or inflammatory etiology, possibly mild aspiration. Left basilar pleural-parenchymal scarring and platelike atelectasis. Focal consolidation/mass in the lingula measures 3.7 cm on image 86 series 3, was also present, however, less masslike on the prior CT examination of 06/08/2018.. Airways are normal. PLEURA: The pleural spaces are clear. HEART AND MEDIASTINUM: The thyroid gland is normal. No mediastinal, hilar or axillary lymphadenopathy. The heart is normal in size.. There is no pericardial effusion. The main pulmonary artery measures 3.6 cm in diameter, dilated. Multivessel coronary artery calcifications. UPPER ABDOMEN: Limited non-contrast views of the upper abdomen show no abnormality within the visualized liver, spleen, pancreas, or kidneys. The adrenal glands are normal. BONES: Lower Thoracic DISH. SOFT TISSUES: Mild bilateral gynecomastia. IMPRESSION: 1. Subtle reticulonodular densities in the right upper lobe may represent infectious or inflammatory etiology. 2. Left basilar subsegmental atelectasis. Coronary artery disease. Signed by: Dr. Daniela Mishra M.D. on 06/26/2018 6:24 PM
[2018-06-26] MEDS: INSULIN DETEMIR 100 UNIT/ML PEN SQ SCH (21:21)
[2018-06-27] VITALS (24 sets, daily range): BP systolic 112–170; BP diastolic 47–83
[2018-06-27] MEDS: INSULIN LISPRO 100 UNIT/1 ML 3ML VIAL SQ SCH ×5 (00:02→23:52)
--- NOTE | 2018-06-27 01:30 | Progress Note ---
DATE: June 27, 2018 PULMONARY MEDICINE PROGRESS NOTE SUBJECTIVE: Mr. Conway was seen and examined at bedside. He continues to have steady progress. He is tolerating ventilator at this time. Tube feeds were continued and he continues to tolerate these. Patient remains with improved sodium levels and the additional D5W has since stopped. He continues to scan his environment, although he remains very weak. REVIEW OF SYSTEMS: Cannot get as he is not talking. OBJECTIVE VITAL SIGNS: Afebrile. Vital signs noted per electronic record. GENERAL: No acute distress, in bed, chronic. HEENT: Normocephalic, atraumatic. NECK: Supple. Throat midline. LUNGS: Bilateral air entry, rare rhonchi. CARDIOVASCULAR: S1, S2. No murmurs, rubs or gallops. ABDOMEN: Soft, nontender. EXTREMITIES: No clubbing, no cyanosis. There is 1 to 2+ ankle edema. INTEGUMENT: No rash, no purpura. IMPRESSIONS AND PLAN 1. Acute respiratory failure, on ventilator. 2. Chronic respiratory failure, status post tracheostomy. 3. Dysphagia, status post percutaneous endoscopic gastrostomy tube. 4. Pneumonia. 5. Gram-negative sima urinary tract infection. 6. Fluid overload, improved. 7. Acute renal failure, resolved. 8. Dehydration, resolved. 9. Continue antibiotics as ordered. Patient will need continued oral and airway toileting. Patient will have weaning continue. Patient okay to go to long-term acute care from pulmonary point of view as stated and being arranged for transfer today. Continue give him time and the opportunity to strengthen. Tube feeds are ordered. Job#: [id number]
[2018-06-27] MEDS: HYDRALAZINE HCL 20 MG/ML VIAL IV PRN (03:22)
[2018-06-27 04:57] LABS: BASOPHILS # (AUTO) 0.1 (0.0-0.1); BASOPHILS % 0.4 % (0.0-1.0); EOSINOPHILS # (AUTO) 0.5 (0.0-0.4); EOSINOPHILS % 4.8 % (0.0-6.0); HEMATOCRIT 32.1 % (38.2-49.6); HEMOGLOBIN 9.7 g/dL (14.0-18.0); LYMPHOCYTES # (AUTO) 1.4 (1.0-3.2); LYMPHOCYTES % 12.1 % (18.0-39.1); MEAN CORPUSCULAR HEMOGLOBIN 24.7 pg (28-32); MEAN CORPUSCULAR HGB CONC 30.2 g/dL (31-35); MEAN CORPUSCULAR VOLUME 81.9 fL (81-99); MONOCYTES # (AUTO) 1.6 (0.2-0.8); MONOCYTES % 14.1 % (4.4-11.3); NEUTROPHILS # (AUTO) 7.6 (2.1-6.9); NEUTROPHILS % 68.1 % (38.7-80.0); PLATELET COUNT 267 x10e3/uL (140-360); RED BLOOD COUNT 3.92 x10e6/uL (4.3-5.7)
[2018-06-27 05:16] LABS: ALANINE AMINOTRANSFERASE 61 IU/L (0-55); ALBUMIN/GLOBULIN RATIO 0.5 (0.8-2.0); ALKALINE PHOSPHATASE 125 IU/L (40-150); ANION GAP 11.3 mmol/L (8-16); BLOOD UREA NITROGEN 33 mg/dL (7-26); BUN/CREATININE RATIO 56 (6-25); CALCIUM 10.9 mg/dL (8.4-10.2); CARBON DIOXIDE 31 mmol/L (22-29); CHLORIDE 102 mmol/L (98-107); CREATININE, SERUM 0.59 mg/dL (0.72-1.25); EST GLOMERULAR FILTRATION RATE > 60 ML/MIN (60-); GLUCOSE 118 mg/dL (74-118); POTASSIUM 4.3 mmol/L (3.5-5.1); SODIUM 140 mmol/L (136-145)
[2018-06-27] MEDS: CITRIC ACID/SODIUM CITRATE 30 ML UDC PEG SCH ×3 (06:00→22:30)
[2018-06-27] MEDS: PIPER-TAZ 3.375 GM 50 ML IV SCH ×3 (06:00→22:16)
[2018-06-27] MEDS: IPRATROPIUM BROMIDE 0.02% 2.5 ML NEB NEB PRN (07:50)
[2018-06-27] MEDS: LEVALBUTEROL HCL SOLN NEBU 1.25 MG/3 ML NEB INH PRN (07:50)
[2018-06-27 08:19] LABS: ANISOCYTOSIS SLIGHT; EOSINOPHILS % (MANUAL) 3 % (0-7); HYPOCHROMASIA SLIGHT; LYMPHOCYTES % (MANUAL) 12 % (19-48); MONOCYTES % (MANUAL) 10 % (3.4-9.0); NEUTROPHILS % (MANUAL) 75 % (40-74); PLATELET ESTIMATE ADEQUATE; RBC MORPHOLOGY COMMENT NORMAL
[2018-06-27 08:20] LABS: PLATELET MORPHOLOGY COMMENT NORMAL
[2018-06-27] MEDS ORDERED: LISINOPRIL 10 MG TAB PO SCH (09:00)
[2018-06-27] MEDS: FAMOTIDINE 20 MG/2 ML VIAL IV SCH ×2 (09:36→21:19)
[2018-06-27] MEDS: GLIMEPIRIDE 2 MG TAB PO SCH ×2 (09:36→18:15)
[2018-06-27] MEDS: FERROUS SULFATE 325 MG TAB PO SCH ×2 (09:37→21:19)
[2018-06-27] MEDS: SPIRONOLACTONE 25 MG TAB PEG SCH (09:37)
[2018-06-27] MEDS: HYDRALAZINE HCL 25 MG TAB PEG SCH ×3 (09:37→21:19)
[2018-06-27] MEDS: CHLORTHALIDONE 25 MG TAB PO SCH (09:37)
[2018-06-27] MEDS: PYRIDOXINE HCL 50 MG TAB PEG SCH (09:37)
[2018-06-27] MEDS: FUROSEMIDE 20 MG TAB PO SCH (09:37)
[2018-06-27] MEDS: FOLIC ACID 1 MG TAB PO SCH (09:37)
[2018-06-27] MEDS: METOPROLOL TARTRATE 25 MG TAB PO SCH ×2 (09:38→21:20)
[2018-06-27] MEDS: BALSAM PERU/CASTOR OIL 60 GM OINT...G. TP SCH ×2 (09:38→16:06)
[2018-06-27] MEDS ORDERED: FUROSEMIDE INJ 10 MG/ML 4 ML VIAL IV ONE (13:15)
[2018-06-27] MEDS: VANCOMYCIN HCL 1.5 GM in SODIUM CHLORIDE 0.9% 250ML 300 ML IV SCH (21:36)
[2018-06-27] MEDS: INSULIN DETEMIR 100 UNIT/ML PEN SQ SCH (21:39)
[2018-06-28] VITALS (23 sets, daily range): BP systolic 86–150; BP diastolic 37–96
[2018-06-28 04:57] LABS: BASOPHILS # (AUTO) 0.1 (0.0-0.1); BASOPHILS % 0.7 % (0.0-1.0); EOSINOPHILS # (AUTO) 0.6 (0.0-0.4); EOSINOPHILS % 5.6 % (0.0-6.0); HEMATOCRIT 30.6 % (38.2-49.6); HEMOGLOBIN 9.2 g/dL (14.0-18.0); LYMPHOCYTES # (AUTO) 1.6 (1.0-3.2); LYMPHOCYTES % 16.7 % (18.0-39.1); MEAN CORPUSCULAR HEMOGLOBIN 24.6 pg (28-32); MEAN CORPUSCULAR HGB CONC 30.1 g/dL (31-35); MEAN CORPUSCULAR VOLUME 81.8 fL (81-99); MONOCYTES # (AUTO) 1.4 (0.2-0.8); MONOCYTES % 14.6 % (4.4-11.3); NEUTROPHILS % 61.2 % (38.7-80.0); PLATELET COUNT 239 x10e3/uL (140-360); RED BLOOD COUNT 3.74 x10e6/uL (4.3-5.7); RED CELL DISTRIBUTION WIDTH 19.3 % (11.7-14.4)
[2018-06-28 05:29] LABS: ANION GAP 10.5 mmol/L (8-16); BLOOD UREA NITROGEN 40 mg/dL (7-26); BUN/CREATININE RATIO 63 (6-25); CALCIUM 10.7 mg/dL (8.4-10.2); CARBON DIOXIDE 36 mmol/L (22-29); CHLORIDE 101 mmol/L (98-107); CREATININE, SERUM 0.63 mg/dL (0.72-1.25); EST GLOMERULAR FILTRATION RATE > 60 ML/MIN (60-); GLUCOSE 79 mg/dL (74-118); POTASSIUM 3.5 mmol/L (3.5-5.1); SODIUM 144 mmol/L (136-145)
[2018-06-28] MEDS: INSULIN LISPRO 100 UNIT/1 ML 3ML VIAL SQ SCH ×3 (06:00→18:30)
[2018-06-28] MEDS: PIPER-TAZ 3.375 GM 50 ML IV SCH ×3 (06:09→21:47)
[2018-06-28] MEDS: CITRIC ACID/SODIUM CITRATE 30 ML UDC PEG SCH ×3 (06:09→21:50)
[2018-06-28] MEDS ORDERED: FUROSEMIDE 40 MG TAB PO SCH (09:00)
[2018-06-28] MEDS: FAMOTIDINE 20 MG/2 ML VIAL IV SCH ×2 (09:54→21:07)
[2018-06-28] MEDS: POTASSIUM CHLORIDE 20MEQ/15ML UDC NG SCH ×2 (09:54→21:07)
[2018-06-28] MEDS: SPIRONOLACTONE 25 MG TAB PEG SCH (09:54)
[2018-06-28] MEDS: FUROSEMIDE INJ 10 MG/ML 4 ML VIAL IV SCH ×2 (09:54→21:07)
[2018-06-28] MEDS: GLIMEPIRIDE 2 MG TAB PO SCH ×2 (09:54→21:07)
[2018-06-28] MEDS: HYDRALAZINE HCL 25 MG TAB PEG SCH ×3 (09:55→21:09)
[2018-06-28] MEDS: PYRIDOXINE HCL 50 MG TAB PEG SCH (09:55)
[2018-06-28] MEDS: CHLORTHALIDONE 25 MG TAB PO SCH (09:55)
[2018-06-28] MEDS: FERROUS SULFATE 325 MG TAB PO SCH ×2 (09:55→21:09)
[2018-06-28] MEDS: BALSAM PERU/CASTOR OIL 60 GM OINT...G. TP SCH ×2 (09:55→18:07)
[2018-06-28] MEDS: METOPROLOL TARTRATE 25 MG TAB PO SCH ×2 (09:55→21:09)
[2018-06-28] MEDS: FOLIC ACID 1 MG TAB PO SCH (09:55)
[2018-06-28] MEDS ORDERED: QUETIAPINE FUMARATE 25 MG TAB PEG PRN (16:30)
[2018-06-28] MEDS: VANCOMYCIN HCL 1.5 GM in SODIUM CHLORIDE 0.9% 250ML 300 ML IV SCH (20:06)
[2018-06-28] MEDS: INSULIN DETEMIR 100 UNIT/ML PEN SQ SCH (21:25)
[2018-06-28] MEDS: ACETAMINOPHEN 325 MG TAB PO PRN (23:31)
[2018-06-29] VITALS (26 sets, daily range): BP systolic 95–141; BP diastolic 35–96
--- NOTE | 2018-06-29 02:42 | Progress Note ---
DATE: June 28, 2018 PULMONARY MEDICINE PROGRESS NOTE SUBJECTIVE: Mr. Conway was seen and examined at bedside. He remains on ventilator. Minute ventilation 9 liters per minute. Webb in place. Urine output is good. Bowel movement in place. He is moving little bit more today. REVIEW OF SYSTEMS: Cannot get as he is intubated. OBJECTIVE: VITAL SIGNS: Afebrile, vital signs noted per electronic record. GENERAL: In no acute distress, in bed, scans his environment. HEENT: Normocephalic, atraumatic. NECK: Supple. Throat midline. LUNGS: Bilateral air entry, rare rhonchi. CARDIOVASCULAR: S1, S2. No murmurs, rubs, or gallops. ABDOMEN: Soft, nontender. EXTREMITIES: No clubbing, no cyanosis, there is stable 1+ to 2+ edema. INTEGUMENT: No rash, no purpura. LABS: Reviewed per record. IMPRESSIONS AND PLAN: 1. Pulmonary edema, resolving. 2. Acute respiratory failure, on ventilator. 3. Chronic respiratory failure, status post tracheostomy. 4. Pneumonia. 5. Acute kidney injury, resolved. 6. Encephalopathy, multifactorial. Lasix increased to 40 twice a day. Continue ventilator support. Weaning per protocol. Get him to long-term acute care if he is ready. Paperwork filled out. Job#: [id number]
[2018-06-29 05:00] LABS: ALANINE AMINOTRANSFERASE 46 IU/L (0-55); ALBUMIN 1.8 g/dL (3.5-5.0); ALBUMIN/GLOBULIN RATIO 0.5 (0.8-2.0); ALKALINE PHOSPHATASE 139 IU/L (40-150); BLOOD UREA NITROGEN 42 mg/dL (7-26); BUN/CREATININE RATIO 61 (6-25); CALCIUM 10.7 mg/dL (8.4-10.2); CARBON DIOXIDE 39 mmol/L (22-29); CHLORIDE 99 mmol/L (98-107); CREATININE, SERUM 0.69 mg/dL (0.72-1.25); EST GLOMERULAR FILTRATION RATE > 60 ML/MIN (60-); SODIUM 143 mmol/L (136-145)
[2018-06-29] MEDS: PIPER-TAZ 3.375 GM 50 ML IV SCH ×3 (05:14→22:45)
[2018-06-29] MEDS: CITRIC ACID/SODIUM CITRATE 30 ML UDC PEG SCH ×3 (05:14→22:00)
[2018-06-29] MEDS: ACETAMINOPHEN 325 MG TAB PO PRN ×2 (05:14→11:27)
[2018-06-29 05:24] LABS: GLUCOSE 43 mg/dL (74-118)
[2018-06-29] MEDS: DEXTROSE 50% SYRINGE 50 ML IV PRN (05:32)
[2018-06-29] MEDS: INSULIN LISPRO 100 UNIT/1 ML 3ML VIAL SQ SCH ×4 (05:33→18:00)
[2018-06-29 06:58] LABS: BASOPHILS # (AUTO) 0.1 (0.0-0.1); BASOPHILS % 0.6 % (0.0-1.0); EOSINOPHILS # (AUTO) 0.6 (0.0-0.4); EOSINOPHILS % 5.8 % (0.0-6.0); HEMATOCRIT 30.8 % (38.2-49.6); HEMOGLOBIN 9.3 g/dL (14.0-18.0); LYMPHOCYTES # (AUTO) 2.5 (1.0-3.2); MEAN CORPUSCULAR HEMOGLOBIN 25.2 pg (28-32); MEAN CORPUSCULAR HGB CONC 30.2 g/dL (31-35); MEAN CORPUSCULAR VOLUME 83.5 fL (81-99); MONOCYTES # (AUTO) 1.7 (0.2-0.8); MONOCYTES % 15.5 % (4.4-11.3); NEUTROPHILS % 54.6 % (38.7-80.0); PLATELET COUNT 238 x10e3/uL (140-360); RED BLOOD COUNT 3.69 x10e6/uL (4.3-5.7); RED CELL DISTRIBUTION WIDTH 19.5 % (11.7-14.4)
[2018-06-29] MEDS: IPRATROPIUM BROMIDE 0.02% 2.5 ML NEB NEB PRN (07:23)
[2018-06-29] MEDS: LEVALBUTEROL HCL SOLN NEBU 1.25 MG/3 ML NEB INH PRN (07:23)
[2018-06-29] MEDS: FUROSEMIDE INJ 10 MG/ML 4 ML VIAL IV SCH (09:33)
[2018-06-29] MEDS: FAMOTIDINE 20 MG/2 ML VIAL IV SCH ×2 (09:33→21:58)
[2018-06-29] MEDS: POTASSIUM CHLORIDE 20MEQ/15ML UDC NG SCH (09:33)
[2018-06-29] MEDS: SPIRONOLACTONE 25 MG TAB PEG SCH (09:33)
[2018-06-29] MEDS: PYRIDOXINE HCL 50 MG TAB PEG SCH (09:34)
[2018-06-29] MEDS: CHLORTHALIDONE 25 MG TAB PO SCH (09:35)
[2018-06-29] MEDS: FOLIC ACID 1 MG TAB PO SCH (09:35)
[2018-06-29] MEDS: HYDRALAZINE HCL 25 MG TAB PEG SCH ×3 (09:39→22:00)
[2018-06-29] MEDS: BALSAM PERU/CASTOR OIL 60 GM OINT...G. TP SCH ×2 (09:39→17:28)
[2018-06-29] MEDS: METOPROLOL TARTRATE 25 MG TAB PO SCH ×2 (09:39→22:00)
[2018-06-29] MEDS: GLIMEPIRIDE 2 MG TAB PO SCH ×3 (09:39→19:05)
[2018-06-29] MEDS: FERROUS SULFATE 325 MG TAB PO SCH ×2 (09:40→21:52)
[2018-06-29] MEDS ORDERED: CHOLESTYRAMINE 4 GM PACKET PEG PRN ×2 (10:15→10:19)
[2018-06-29] MEDS ORDERED: ALTEPLASE RECOMBINANT 2 MG/2 ML VIAL IV PRN (13:45)
[2018-06-29 16:15] LABS: CLARITY,URINE CLEAR (CLEAR); COLOR,URINE YELLOW (YELLOW); LEUKOCYTE ESTERASE ,URINE NEGATIVE (NEGATIVE); NITRITE,URINE NEGATIVE (NEGATIVE)
[2018-06-29 16:19] LABS: BILIRUBIN,URINE NEGATIVE (NEGATIVE); KETONES,URINE NEGATIVE (NEGATIVE); PROTEIN,URINE DIPSTICK NEGATIVE (NEGATIVE); URINE UROBILINOGEN 4 mg/dL (0.2 - 1)
[2018-06-29 16:20] LABS: BACTERIA,URINE MODERATE /HPF; HYALINE CASTS 0-1 (0-1)
[2018-06-29] MEDS: VANCOMYCIN 250MG/5ML ORAL SOLN PO SCH (17:28)
[2018-06-29] MEDS: VANCOMYCIN HCL 1.5 GM in SODIUM CHLORIDE 0.9% 250ML 300 ML IV SCH (19:45)
[2018-06-29] MEDS: INSULIN DETEMIR 100 UNIT/ML PEN SQ SCH (22:05)
[2018-06-30] VITALS (21 sets, daily range): BP systolic 123–150; BP diastolic 49–74
[2018-06-30] MEDS: VANCOMYCIN 250MG/5ML ORAL SOLN PO SCH ×3 (00:05→12:05)
--- NOTE | 2018-06-30 02:50 | Progress Note ---
DATE: June 29, 2018 PULMONARY MEDICINE PROGRESS NOTE SUBJECTIVE: Mr. Conway was seen and examined at bedside. Patient continues on ventilator at this time. He remains on weaning. So far minute ventilation 10 liters per minute, but due to crisis, he is placed back on backup mode. Webb in place with urine output. He is having some fevers. Some purulence around tracheostomy site. 70 mL per hour tube feeds and 250 mL every 8 hours of water. I discussed with robert, who is at bedside today. REVIEW OF SYSTEMS: Cannot get as he is altered. OBJECTIVE: VITAL SIGNS: Patient with fevers as stated including 102.3. other vitals per record. GENERAL: Scans environment intermittently. Patient on ventilator, in bed. HEENT: Normocephalic, atraumatic. NECK: Supple. Throat midline. LUNGS: Bilateral air entry, few rhonchi. CARDIOVASCULAR: S1, S2. No murmurs, rubs, or gallops. ABDOMEN: Soft, nontender. EXTREMITIES: No clubbing, no cyanosis, there is 1+ to 2+ edema, wrinkled. INTEGUMENT: No rash, no purpura. LABS: 4.0 potassium, 42 BUN, 0.7 creatinine. 11 white count, 31 hematocrit, 238,000 platelets. IMPRESSIONS AND PLAN: 1. Acute respiratory failure, on ventilator. 2. Chronic respiratory failure, status post tracheostomy. 3. Dysphagia, status post feeding tube placement. 4. Pneumonia, much better. 5. Fluid overload, resolved. 6. New fevers, high consideration for new infection versus drug reaction versus other condition. 7. Acute kidney failure, resolved. 8. Encephalopathy, improving and he is starting to commands again. At this time, will continue follow up his fevers. Patient needs pancultures to be done. for obstructed line. Continue weaning and hopefully we can get more forward progress. Continue care to tracheostomy site. Will follow along closely. Job#: [id number]
[2018-06-30 04:45] LABS: BASOPHILS # (AUTO) 0.1 (0.0-0.1); BASOPHILS % 0.6 % (0.0-1.0); EOSINOPHILS # (AUTO) 0.9 (0.0-0.4); EOSINOPHILS % 9.5 % (0.0-6.0); HEMATOCRIT 29.4 % (38.2-49.6); HEMOGLOBIN 8.8 g/dL (14.0-18.0); LYMPHOCYTES # (AUTO) 1.4 (1.0-3.2); LYMPHOCYTES % 14.6 % (18.0-39.1); MEAN CORPUSCULAR HEMOGLOBIN 24.9 pg (28-32); MEAN CORPUSCULAR HGB CONC 29.9 g/dL (31-35); MEAN CORPUSCULAR VOLUME 83.3 fL (81-99); MONOCYTES # (AUTO) 1.3 (0.2-0.8); MONOCYTES % 13.3 % (4.4-11.3); NEUTROPHILS # (AUTO) 6.1 (2.1-6.9); NEUTROPHILS % 61.6 % (38.7-80.0); PLATELET COUNT 199 x10e3/uL (140-360); RED BLOOD COUNT 3.53 x10e6/uL (4.3-5.7); RED CELL DISTRIBUTION WIDTH 19.5 % (11.7-14.4)
[2018-06-30] MEDS: PIPER-TAZ 3.375 GM 50 ML IV SCH ×2 (05:05→15:51)
[2018-06-30] MEDS: CITRIC ACID/SODIUM CITRATE 30 ML UDC PEG SCH ×2 (05:05→15:51)
[2018-06-30 05:06] LABS: ALANINE AMINOTRANSFERASE 41 IU/L (0-55); ALBUMIN 1.9 g/dL (3.5-5.0); ALBUMIN/GLOBULIN RATIO 0.5 (0.8-2.0); ALKALINE PHOSPHATASE 144 IU/L (40-150); ANION GAP 10.4 mmol/L (8-16); BLOOD UREA NITROGEN 38 mg/dL (7-26); BUN/CREATININE RATIO 58 (6-25); CALCIUM 10.7 mg/dL (8.4-10.2); CARBON DIOXIDE 40 mmol/L (22-29); CHLORIDE 103 mmol/L (98-107); CREATININE, SERUM 0.66 mg/dL (0.72-1.25); EST GLOMERULAR FILTRATION RATE > 60 ML/MIN (60-); GLUCOSE 95 mg/dL (74-118); MAGNESIUM 1.9 MG/DL (1.3-2.1); PHOSPHORUS 2.5 MG/DL (2.3-4.7); POTASSIUM 3.4 mmol/L (3.5-5.1); SODIUM 150 mmol/L (136-145)
[2018-06-30] MEDS: INSULIN LISPRO 100 UNIT/1 ML 3ML VIAL SQ SCH ×3 (06:00→12:00)
[2018-06-30] MEDS: DEXTROSE 50% SYRINGE 50 ML IV PRN ×2 (06:03→12:00)
--- NOTE | 2018-06-30 06:29 | Diagnostic Imaging Report ---
CHEST SINGLE (PORTABLE), 06/30/2018 5:00 AM Technique: CHEST SINGLE (PORTABLE) Comparison: 06/24/2018 Clinical history: Fever Findings: See Impression Impression: Limited by portable technique and body habitus. 1. Lines/Tubes: Stable tracheostomy and right IJ CVC near the cavoatrial junction. 2. Stable mild cardiomegaly and prominent central pulmonary arteries. 3. Low lung volumes with left basilar opacity, possibly atelectasis or developing infection. Recommend follow-up with improved inspiratory effort or upright PA and lateral if indicated. Signed by: Dr Tammi Barrientos MD on 06/30/2018 6:25 AM
[2018-06-30] MEDS: LEVALBUTEROL HCL SOLN NEBU 1.25 MG/3 ML NEB INH PRN ×2 (07:24→14:12)
[2018-06-30] MEDS: IPRATROPIUM BROMIDE 0.02% 2.5 ML NEB NEB PRN ×2 (07:24→14:13)
[2018-06-30] MEDS: FAMOTIDINE 20 MG/2 ML VIAL IV SCH (09:45)
[2018-06-30] MEDS: FOLIC ACID 1 MG TAB PO SCH (09:45)
[2018-06-30] MEDS: HYDRALAZINE HCL 25 MG TAB PEG SCH ×2 (09:45→15:51)
[2018-06-30] MEDS: METOPROLOL TARTRATE 25 MG TAB PO SCH (09:45)
[2018-06-30] MEDS: FERROUS SULFATE 325 MG TAB PO SCH (09:45)
[2018-06-30] MEDS: PYRIDOXINE HCL 50 MG TAB PEG SCH (09:45)
[2018-06-30] MEDS: CHLORTHALIDONE 25 MG TAB PO SCH (09:45)
[2018-06-30] MEDS: BALSAM PERU/CASTOR OIL 60 GM OINT...G. TP SCH (10:03)
[2018-06-30] MEDS ORDERED: POTASSIUM CHLORIDE 20MEQ/100ML 200 ML IV ONE (17:00)
[2018-06-30] MEDS ORDERED: POTASSIUM CHL 40 MEQ in SODIUM CHLORIDE 0.9% 250ML 250 ML IV PRN (17:00)
--- NOTE | 2018-07-01 05:06 | Progress Note ---
DATE: June 30, 2018 PULMONARY MEDICINE PROGRESS NOTE SUBJECTIVE: Mr. Conway was seen and examined at bedside. He continues to have slow progress. 55 mL per hour of feeds and 250 mL of water every 8 hours. Still with some fevers, although slightly better. Still diarrhea. On ventilator. Appeal was done with insurance. REVIEW OF SYSTEMS: Cannot get as he is altered. OBJECTIVE VITAL SIGNS: Afebrile, vital signs noted per electronic record. GENERAL: In no distress, intermittently alert, following simple commands. HEENT: Normocephalic, atraumatic. NECK: Supple. Throat midline. LUNGS: Bilateral air entry, few rhonchi. CARDIOVASCULAR: S1 and S2. No murmurs, rubs, or gallops. ABDOMEN: Soft and nontender. EXTREMITIES: No clubbing, no cyanosis. There is still 1-2+ wrinkled edema. INTEGUMENT: No rash and no purpura. LABS: Reviewed per electronic record. IMPRESSION AND PLAN 1. New Clostridium difficile colitis. 2. Febrile syndrome. 3. Acute respiratory failure, on ventilator. 4. Chronic respiratory failure, status post tracheostomy. 5. Dysphagia, status post percutaneous endoscopic gastrostomy tube. We have got approval for long-term acute care facility. Continue tube feeds. Continue antibiotics for C. difficile colitis and rule out other sources of sepsis. Continue ventilator weaning. I will keep following him. Job#: [id number] RERE
--- NOTE | 2018-08-08 08:23 | Discharge Summary ---
CHIEF COMPLAINT: Shortness of breath, chest pain. FINAL DIAGNOSES: 1. Respiratory failure. 2. Anoxic encephalopathy. 3. Pneumonia. 4. Sepsis. 5. Congestive heart failure. 6. Diabetes type 2. 7. Obstructive sleep apnea. PROCEDURES: 1. Blood transfusion. 2. Central venous catheter. 3. Tracheostomy tube placement. 4. PEG tube placement. DISPOSITION: [facility]. Axtxlc[id number]-old male, patient of mine, presents to the ER complaining of shortness of breath along with chest pain. He is a morbidly obese male with multiple underlying comorbidities, severe diseases with coronary artery disease, congestive heart failure, atrial fib, COPD, morbid obesity, obstructive sleep apnea, severe osteoarthritis, profound dilatation, bedridden, shelter individual. With arrival to the emergency room, patient underwent review and evaluation, and following the completion of the studies and review of patient, admission was made regarding findings of decompensated congestive heart failure, dyspnea, chronic obstructive pulmonary disease with exacerbation, moderately severe anemia, ubyjh-fm-fwhpels anemia with possible blood loss, diabetes mellitus, sacral decubitus ulcer, tinea cruris. Patient was anemic and patient being typed and crossmatched for packed RBCs. Will be requesting a cardiology follow and a GI follow upon admission. Once admitted, regarding his cardiac history along with his chief complaints, being reviewed by Dr. Mccrary; and following his evaluation, impression was made of congestive heart failure type unknown, anemia, atrial fib, obesity, shortness of breath, chronic obstructive pulmonary disease with exacerbation, diabetes. Agree with current medications. Will be obtaining a bilateral lower extremity Doppler to rule out DVT. Noted to be anemic, had been typed and crossmatched with 2 units of packed RBCs and has received both units. Was being reviewed by Dr. Baron as well regarding issues of respiratory failure with chest x-ray findings of mild overload type pattern. His EKGs have been showing atrial fib. Currently, the patient is noted to have had a cardiac arrest and had 7 minutes until return of spontaneous circulation, was intubated in the rapid event, transferred up to ICU, and with further evaluation, his impression was acute respiratory failure; hypotensive shock; encephalopathy, hhpzw-sg-[id number] component likely; abnormal chest x-ray, treat as pneumonia; atrial fib, unclear if this was causative to his arrest; suspected pulmonary hypertension; possible chronic obstructive pulmonary disease; obstructive sleep apnea; hypertension; hyperlipidemia; and diabetes. Diuretics will be temporarily on hold. When he is further stabilized, a CT scan of head and lungs will be conducted, hold off on BP meds until the patient is more stable. From the ER, patient was admitted to the med-surg floor, was on a cardiac diet, was started on respiratory treatments. Daily medications were being continued as well. Was given Lovenox 40 mg daily. Laboratory studies were showing stable electrolytes. Kidney functions, BUN 29, creatinine 0.79, glucose 114. CBC: Hemoglobin of 7.5, white cell count 6000. Troponin studies so far have been negative. He was issued 2 units of packed RBCs. Followup hemoglobin was 8.8, and around 1530 hours on date of admission, patient had a rapid event. Meme reese was called, was having issues of shortness of breath, then arrested. CPR was initiated. Patient underwent chemical code, intubation was required, but it was difficult. Patient responded to his code, transferred up to ICU on vent. He was continuing on multiple medications, while in ICU was on conscious sedation, while under vent management was on norepinephrine for BP stability, insulin control. Laboratory studies were showing a potassium of 5.4, BUN 40, creatinine 1.29, glucose 127. Hemoglobin of 10, white cell count 13,000. INR was 2.58. Patient's liver studies were total bilirubin of 2.3, AST 432, ALT 418, alk phos 72. Followup liver enzymes, total bilirubin 2.5, AST 713, ALT 639, alk phos 69. White cell count 15,900. Potassium had improved to 4.6. With Dr. Mccrary's review for the rapid event, he stated that the rhythm strips were revealing a long sinus arrest, now tachycardia on vent. Continued to be sedated as his care was continuing in ICU. Chest x-rays were showing pulmonary edema. Potassium had trended down to 3.5. Antibiotics were now being started with Zosyn 3.375 IV q.6. Reports back from the CT abdomen were revealing liver cirrhosis. On June 09, hemoglobin was now back to 8.8, white cell count improved to 8500. Liver studies were improving, showing total bilirubin of 1.7, AST 361, ALT 538, alk phos 60. Sputum studies were coming back positive for MRSA. Urine was showing Klebsiella. NG tube was placed for feeding protocols. He began having some issues of spiking fever daily. This was being managed with acetaminophen. His antibiotics were continuing and his respiratory treatments were continuing. Dr. Contreras was also following from an infectious disease standpoint, stating the patient was suffering from sepsis, healthcare-associated pneumonia. Tolerating the tube feedings. Transfused once again. Hemoglobin rebound to 10.9 post transfusion. On June 12, noted that the patient continued on vent, but was off sedation, remaining unresponsive, continuing on Lasix drip. On June 14, potassium had fallen to 3.1, began receiving replenishment once again; and with continued unresponsiveness, the patient was now being reviewed by Dr. Mcarthur, neurology. Following her review, recommendations were MRI of the brain. Hemoglobin was remaining stable. Continued to be hypercapnic. BUNs were now in the 60s. With further review and followup by Dr. Mcarthur, she states that the neurological exam is mildly improving. EEGs were showing evidence of moderate diffuse encephalopathy, no seizures. Beginning to show some response to verbal prompting, and it was noted on June 16 that the patient was showing evidence of waking up, responding to verbal commands with eye movement. The antibiotics were continuing. Rhythm strips continued to reveal evidence of atrial fib. Dr. Acevedo was commenting that the patient's prognosis is very poor. Discussions were now being placed for possible hospice placement versus trach placement; and potassium had fallen to 2.9 on June 19, once again was started with potassium replenishment. His liver functions had improved, and was continuing to show evidence of slowly responding. Further discussion with the family was leaning towards tracheostomy with PEG placement, and on June 22, the PEG and the trach procedures were carried out. Further discussions with family leaning towards changing of code status to DNR versus along with long-term care i.e. LTAC versus SNF placement. Continued to show evidence of becoming more alert, and CO2 improved greatly to 27. His NG tube was stopped, now receiving nutrition through PEG. Medications were being addressed in PEG as well now. Continuing on potassium replenishment, continuing on his antibiotics. Awaiting clearance for transfer to LTAC. On June 27, potassium is now at 4.3, CO2 31, BUN 33, hemoglobin 9.7. Developed C. diff during his stay, was continuing on isolation for this along with his MRSA. Continuing on the multiple medications, and on June 30 noted the hemoglobin fallen to 8.8, white cell count was still normal, and was accepted to [facility], finally able to be transferred there on June 30, 2018, remaining critically ill, will be transferred to ICU with pulmonary assist. Final EKGs were showing sinus tachycardia with premature supraventricular complexes, a right bundle-branch block. The lower extremity Dopplers bilaterally were negative. Echocardiogram was showing ejection fraction between 60% and 65%, no evidence of pericardial effusion. At that facility, patient will continue on his pulmonary assist in ICU, will continue on PEG for his nutrition. His MAR sheet will continue, and I will be managing the patient's care at that facility. I will be evaluating the status routinely, continue to request groundwater consultant follow. Dictated By: DYLON Love GURDEEP DENNY MD Job#: [id number]
== END 2018-06-30 19:54 | DRG 3 ==
LOC: ER 11:19 → ERHOLD 13:57 → MED/SURG2 20:50 → ICU 06-07 18:25
PROVIDERS: ADMIT Internal Medicine; ATTEND Internal Medicine
PROC: 30233N1 Transfusion of Nonautologous Red Blood Cells into Peripheral Vein, Percutaneous Approach (ICD-10-PCS; 2018-06-06)
PROC: 5A1955Z Respiratory Ventilation, Greater than 96 Consecutive Hours (ICD-10-PCS; 2018-06-07)
PROC: 0BH17EZ Insertion of Endotracheal Airway into Trachea, Via Natural or Artificial Opening (ICD-10-PCS; 2018-06-07)
PROC: 5A02216 Assistance with Cardiac Output using Other Pump, Continuous (ICD-10-PCS; 2018-06-07)
PROC: 02HV33Z Insertion of Infusion Device into Superior Vena Cava, Percutaneous Approach (ICD-10-PCS; 2018-06-07)
PROC: B548ZZA Ultrasonography of Superior Vena Cava, Guidance (ICD-10-PCS; 2018-06-07)
PROC: 0B110F4 Bypass Trachea to Cutaneous with Tracheostomy Device, Open Approach (ICD-10-PCS; 2018-06-22)
PROC: 0DH63UZ Insertion of Feeding Device into Stomach, Percutaneous Approach (ICD-10-PCS; principal; 2018-06-23 19:00)
DX: I11.0 Hypertensive heart disease with heart failure (principal); A41.9 Sepsis, unspecified organism; J96.02 Acute respiratory failure with hypercapnia; J96.01 Acute respiratory failure with hypoxia; J15.212 Pneumonia due to Methicillin resistant Staphylococcus aureus; G92 Toxic encephalopathy; K72.00 Acute and subacute hepatic failure without coma; R65.21 Severe sepsis with septic shock; J44.1 Chronic obstructive pulmonary disease with (acute) exacerbation; N39.0 Urinary tract infection, site not specified; D62 Acute posthemorrhagic anemia; N17.9 Acute kidney failure, unspecified; E87.0 Hyperosmolality and hypernatremia; Z99.11 Dependence on respirator [ventilator] status; G93.1 Anoxic brain damage, not elsewhere classified; E87.4 Mixed disorder of acid-base balance; G62.81 Critical illness polyneuropathy; A04.72 Enterocolitis due to Clostridium difficile, not specified as recurrent; Z68.42 Body mass index [BMI] 45.0-49.9, adult; E83.52 Hypercalcemia; I50.43 Acute on chronic combined systolic (congestive) and diastolic (congestive) heart failure; D63.8 Anemia in other chronic diseases classified elsewhere; E66.01 Morbid (severe) obesity due to excess calories; Z74.01 Bed confinement status; I25.10 Atherosclerotic heart disease of native coronary artery without angina pectoris; I48.91 Unspecified atrial fibrillation; G47.33 Obstructive sleep apnea (adult) (pediatric); Z83.3 Family history of diabetes mellitus; Z82.49 Family history of ischemic heart disease and other diseases of the circulatory system; B35.6 Tinea cruris; L89.152 Pressure ulcer of sacral region, stage 2; M19.90 Unspecified osteoarthritis, unspecified site; E78.5 Hyperlipidemia, unspecified; Z79.01 Long term (current) use of anticoagulants; B96.1 Klebsiella pneumoniae [K. pneumoniae] as the cause of diseases classified elsewhere; B95.61 Methicillin susceptible Staphylococcus aureus infection as the cause of diseases classified elsewhere; N28.1 Cyst of kidney, acquired; K21.9 Gastro-esophageal reflux disease without esophagitis; R73.9 Hyperglycemia, unspecified; K29.70 Gastritis, unspecified, without bleeding; K20.9 Esophagitis, unspecified
CPT/HCPCS: 36415; 36430; 36556; 36600; 43246; 51700; 70450; 71045; 71250; 74018; 74177; 76705; 76937; 80048; 80053; 80202; 81001; 82140; 82150; 82270; 82550; 82553; 82805; 82948; 83540; 83605; 83690; 83735; 83880; 83970; 84100; 84132; 84165; 84443; 84466; 84484; 85025; 85610; 85730; 86850; 86900; 86920; 87040; 87070; 87071; 87086; 87186; 87205; 87493; 93005; 93306; 93970; 94002; 94003; 94640; 95816; 96372; 97139; 99284; C1751; C1769; J0171; J0330; J0360; J0696; J1100; J1200; J1650; J1940; J2060; J2150; J2250; J2270; J2405; J2543; J2997; J3370; J3480; J7030; J7050; J7070; J7120; J7799; P9016; Q9967